=== PATIENT | female | born 1935 | race Caucasian/White ===

== ENCOUNTER → 2020-12-15 11:07 | Outpatient (BNVA) | payer MEDICARE, SELFPAY | PROVIDERS: PCP Internal Medicine; Visit Provider Hospitalist | DX: Z13.89 Encounter for screening for other disorder (principal) | CPT/HCPCS: Q3014 ==

== ENCOUNTER → 2021-06-15 11:01 | Outpatient (BNVA) | payer MEDICARE, SELFPAY | PROVIDERS: PCP Internal Medicine; Visit Provider Hospitalist | DX: J45.909 Unspecified asthma, uncomplicated (principal); J47.9 Bronchiectasis, uncomplicated; J90 Pleural effusion, not elsewhere classified; R91.8 Other nonspecific abnormal finding of lung field | CPT/HCPCS: 99212 ==

== ENCOUNTER → 2021-12-18 11:13 | Outpatient (BNVA) | payer MEDICARE, SELFPAY | PROVIDERS: PCP Internal Medicine; Visit Provider Hospitalist | DX: J47.9 Bronchiectasis, uncomplicated (principal); R91.8 Other nonspecific abnormal finding of lung field; J90 Pleural effusion, not elsewhere classified | CPT/HCPCS: Q3014 ==

== ENCOUNTER → 2023-01-24 13:44 | Outpatient (BNVA) | payer MEDICARE, SELFPAY | PROVIDERS: PCP Internal Medicine; Visit Provider Hospitalist | DX: J45.909 Unspecified asthma, uncomplicated (principal); J47.9 Bronchiectasis, uncomplicated; J90 Pleural effusion, not elsewhere classified; R91.8 Other nonspecific abnormal finding of lung field | CPT/HCPCS: 99212 ==

== ENCOUNTER 2024-01-15 13:44 | Outpatient (AMB) | payer MEDICARE, SELFPAY ==
--- NOTE | 2024-01-15 13:46 | A.OFFVIS_ITS ---
Intake Vital Signs 01/15/24 13:49 Height 5 ft 4.5 in Weight 172 lb BMI 29.1 Pulse 73 Pulse Source Pulse Oximeter Pulse Oximetry (%) 96 Oxygen Delivery Method Room Air Intake Visit Reasons: copd Pressed Or Blown Glass Worker Required: No Allergies No Known Allergies Allergy (Verified 01/15/24 13:50) HPI HPI Comments History of Present Illness Details Patient is an 88-year-old woman with known history of asthma in addition to bronchiectasis and pulmonary nodules. Overall she has been doing well from a respiratory status. She does have an Advair inhaler but she is seldom uses it. Mainly when she gets sick. She has required at all the summer. She does not have a rescue inhaler her. She should have 1 readily available. She did have a repeat CT scan of the chest at radiology imaging in and [place] back in November 2019. I personally reviewed the CT scan demonstrating numerous pulmonary nodules were unchanged when compared to CT scan from 2017. At this point will plan to repeat the CT scan in November 2020. 12/15/2020 the patient has a telephone vi sit. Overall the patient has been doing well. She continues on the combination inhaler with good adherence. She also has been taking the singular. She feels that this has been helpful. She was asking about taking the antihistamines in the singular and I reassured her that is okay for her to do that. I did request that she takes med different times to avoid too much drowsiness. She did undergo a CT scan of the chest that we discussed. It appears that her pulmonary nodules are stable. She has multiple nodules noted. Her largest nodule 5 mm. The only new finding on the CT scan is that she has small bilateral pleural effusions. On further questioning she has been taking more by mouth. She recently saw her in tube conversion technician to told her not to take some much fluids. Therefore she has backed off on her fluid intake. She denies any lower extremity edema this time and has been better since she decrease the amount of fluid intake. If the patient develops any worsening shortness of breath or any other concerning symptoms she is to call for earlier evaluation otherwise will discuss this further in 6 months time. 06/18/2021 the patient is here for a pulm onary follow-up visit. Overall the patient has been feeling well. She continues taking her respiratory medications. She is concerned about the findings of the CT scan demonstrating the bilateral small pleural effusions. Of the time the patient was taking in a lot of fluids. She subsequently after that decrease taking as much. I have reassured the patient that this is likely just related to her volume status at the time. Her exam is completely normal with no diminished breath sounds at the bases and no dullness to percussion. I will have her get an x-ray just to make sure that the effusions have subsided. If there is still some abnormality we can consider an echocardiogram and also consider additional imaging studies. Her pulmonary nodules have been stable social will require an additional CT scan until November 2021 to follow up with her yearly CAT scan to assess her pulmonary nodules at that time. 01/15/2024 the patient is here for pulmon becca follow-up visit. Overall the patient has been doing well. She has not had to use Wixela. She does prefer to use her rescue inhaler. She has not had to use the rescue inhaler either. Denies any cough or chest congestion. Denies any respiratory limitations. She did have a CT scan of the chest back in 2021 demonstrating stable pulmonary nodules. She does have some bronchiectatic changes. She is having back pain. It is uncomfortable for her. No radiation. She did see a manager financial systems. I did recommend she see a pain specialist. Otherwise no further imaging studies from a pulmonary standpoint at this time. Will plan to follow-up in late September. However, if she is doing good she can always personally appointment to the the spring. Also, she is going to hold off on the Wixela. She can use her rescue inhaler. However, she starts needing to use her rescue inhaler more than twice a week then she should be starting the Wixela as well. She has already had vaccinations for the flu RSV and COVID. She will talk to the pharmacist to see if she is up to date with her Prevnar 20. [facility] Medical History (Updated 01/15/24 @ 13:56 by Bobby Tamez MD) Pleural effusion Pulmonary nodules Bronchiectasis Asthma Social History (Updated 01/24/23 @ 13:56 by LIZA Malone) Patient Tobacco Use Status: Former Tobacco user Tobacco use type: Cigarette Years Smoked: 25 years Review of Systems Const Denies night sweats ENT Denies change in voice, Denies lip swelling, Denies mouth pain, Reports nasal congestion, Reports nasal discharge and Denies tongue swelling Card Denies chest pain Resp Denies chest congestion and Reports cough GI Denies abdominal pain Musc Denies no additional complaints Neuro Denies Neuro-related abnormal movements Psych Denies no additional complaints Sherif/Lymph Denies easy bleeding and Denies lymphadenopathy Aller/Immun Denies lip swelling and Denies tongue swelling Physical Exam Vital Signs: Last Vital Signs Pulse 73 01/15/24 13:49 Pulse Ox 96 01/15/24 13:49 Oxygen Delivery Method Room Air 01/15/24 13:49 BMI result Body Mass Index 29.1 Const General: alert Neck Neck: Yes normal visual inspection, Yes full ROM and Yes no lymphadenopathy Chest Chest palpation & inspection: normal inspection of the chest Resp Effort & Inspection: normal respiratory effort Auscultation: clear to auscultation bilaterally Percussion: no dullness to percussion Cardio Rate: regular rate Rhythm: regular rhythm Heart sounds: S1 normal heart sound present and S2 normal heart sound present GI Palpation (GI): Soft to palpation and nontender Auscultation: normal bowel sounds Skin General skin exam: rashes and/or lesions noted Assessment & Plan Assessment & Plan (1) Asthma: Code(s): J45.909 - Unspecified asthma, uncomplicated Qualifiers: Asthma complication type: uncomplicated Asthma persistence: persistent Asthma severity: moderate Qualified Code(s): J45.40 - Moderate persistent asthma, uncomplicated (2) Bronchiectasis: Code(s): J47.9 - Bronchiectasis, uncomplicated Qualifiers: Bronchiectasis type: uncomplicated Qualified Code(s): J47.9 - Bronchiectasis, uncomplicated (3) Pulmonary nodules: Code(s): R91.8 - Other nonspecific abnormal finding of lung field Plan fluticasone nasal spray hold Wixela 250 Short-acting beta agonist as needed Continue singular CPT with acapella valve Follow-up in 8-12 months Medications: New albuterol sulfate 90 mcg/actuation 2 inhalations inhalation Q6H 90 days PRN 3 ea 3RF shortness of breath or wheezing J44.9 - Chronic obstructive pulmonary disease, unspecified Coding Level of Care Code Est Pt Level 4 (07812) Diagnoses Moderate persistent asthma without complication J45.40 Asthma complication type: uncomplicated Asthma persistence: persistent Asthma severity: moderate Bronchiectasis without complication J47.9 Bronchiectasis type: uncomplicated Pulmonary nodules R91.8 Time Spent (min) 17
[2024-01-15 13:49] VITALS: PULSE 73; O2SAT 96; BMI 29.1
== END 2024-01-15 14:13 | disposition home or self-care (01) ==
PROVIDERS: PCP Internal Medicine; Visit Provider Hospitalist
DX: J45.40 Moderate persistent asthma, uncomplicated (principal); J47.9 Bronchiectasis, uncomplicated; R91.8 Other nonspecific abnormal finding of lung field
CPT/HCPCS: 99214

== ENCOUNTER → 2024-01-15 13:44 | Outpatient (BNVA) | payer MEDICARE, SELFPAY | PROVIDERS: PCP Internal Medicine; Visit Provider Hospitalist | DX: J44.9 Chronic obstructive pulmonary disease, unspecified (principal); J45.40 Moderate persistent asthma, uncomplicated; J47.9 Bronchiectasis, uncomplicated; R91.8 Other nonspecific abnormal finding of lung field | CPT/HCPCS: 99212 ==

== ENCOUNTER 2024-09-15 14:43 | Outpatient (AMB) | payer MEDICARE, SELFPAY ==
--- NOTE | 2024-09-15 14:44 | MHC.OFFVIS ---
Vital Signs 09/15/24 14:45 Height 5 ft 4.5 in Weight 153 lb 7.068 oz BMI 25.9 BP 140/50 H Blood Pressure Location Rt brachial Position Sitting Pulse 74 Pulse Source Pulse Oximeter Intake Visit Reasons: Arthritis//RECORDS RECEIVED Intake Note: Patient present today for arthritis office visit. Hand Cell Tuber Required: No Accompanied by: Daughter Allergies No Known Allergies Allergy (Verified 09/15/24 14:52) HPI Comments Details: She fell two weeks ago while trying to make a turn with her walker and landed on the cement floor on her right hip. She has had right lateral hip pain since incident. Sometimes pain is in left groin region. She completed PT for back and lower extremities same week incident happend. PT was happy with patient's progress. She is no longer requiring wheelchair. She had x-ray of right hip recently and reports that there is no arthritis in the hip. Last cortisone injection in bilateral knees was helpful in reducing pain for 2 months. She was able to participate in PT. [facility] Medical History (Updated 09/15/24 @ 22:49 by Stan Villa MD) Pleural effusion Pulmonary nodules Bronchiectasis Asthma Social History Patient Tobacco Use Status: Former Tobacco user Tobacco use type: Cigarette Years Smoked: 25 years Review of Systems Const All systems reviewed & are unremarkable except as noted in HPI and below Physical Exam Vital Signs: Last Vital Signs Pulse 74 09/15/24 14:45 BP 140/50 H 09/15/24 14:45 BMI result Body Mass Index 25.9 Const General: healthy appearing and comfortable Extrem Other: Tender right trochanteric bursa region. No groin tenderness. She has ROM in right hip but it is not full with external rotation. Bilateral knee flexion 90 degrees. No tenderness of bilateral knees. Office Procedures AMB Joint Injection/Aspiration Joint Injection/Aspiration Primary Site: other (right trochanteric bursa) Prep: site was prepped using aseptic technique Procedure: The patient tolerated the procedure well Coding 59855 - Large joint (right hip bursa and right knee) Procedure code (CPT) selection complete Office Meds Kenalog 40 mg/mL suspension for injection Performing Provider: Stan Villa MD Performing Location[place] [facility] [place] [facility] Administered by: Stan Villa MD on 09/15/24 22:50 Dose Route Admin Location Dispensed Lot Number Expiration Date [facility] Automatic Trimming Sewer 40 mg intrabursal right knee 1 mL [id number] [employer] 40 mg intrabursal right trochanteric bursa 1 mL [id number] [employer] lidocaine (PF) 10 mg/mL (1 %) injection solution Performing Provider: Stan Villa MD Performing Location: [facility] [place] [facility] Administered by: Stan Villa MD on 09/15/24 22:50 Dose Route Admin Location Dispensed Lot Number Expiration Date [facility] Automatic Trimming Sewer 20 mg Infiltration 2 mL [id number] [facility] Assessment & Plan Assessment & Plan (1) Trochanteric bursitis of right hip: Comment: Pain is uncontrolled. Code(s): M70.61 - Trochanteric bursitis, right hip Category: Medical Plan: She received right trochanteric bursa injection today. (2) Osteoarthritis of right knee: Comment: Pain is uncontrolled Code(s): M17.11 - Unilateral primary osteoarthritis, right knee Category: Medical Plan: She received right knee cortisone injection. (3) Osteoarthritis of both knees: Comment: Pain is uncontrolled. Code(s): M17.0 - Bilateral primary osteoarthritis of knee Category: Medical Plan: Will treat right knee OA with cortisone injection today. She will return in 3-4 weeks to treat left knee OA with cortisone injection. Orders: Orders AMB Joint Injection/Aspiration Today M17.11 - Unilateral primary osteoarthritis, right knee, M70.61 - Trochanteric bursitis, right hip Coding Level of Care Code Est Pt Level 3 (98846) Diagnoses Trochanteric bursitis of right hip M70.61 Osteoarthritis of right knee M17.11 Osteoarthritis of both knees M17.0 CPT Codes Coding - Large joint: 24705 - Large joint ([id number])
[2024-09-15 14:45] VITALS: BP 140/50; PULSE 74; BMI 25.9
== END 2024-09-15 15:38 | disposition home or self-care (01) ==
PROVIDERS: PCP Internal Medicine; Visit Provider Internal Medicine Rheumatology
DX: M70.61 Trochanteric bursitis, right hip (principal); M17.11 Unilateral primary osteoarthritis, right knee; M17.0 Bilateral primary osteoarthritis of knee
CPT/HCPCS: 20610; 99213

== ENCOUNTER → 2024-09-15 14:43 | Outpatient (BNVA) | payer MEDICARE, SELFPAY | PROVIDERS: PCP Internal Medicine; Visit Provider Internal Medicine Rheumatology | DX: M70.61 Trochanteric bursitis, right hip (principal); M17.11 Unilateral primary osteoarthritis, right knee; M17.0 Bilateral primary osteoarthritis of knee; Z91.81 History of falling | CPT/HCPCS: 20610; 99212; J2003; J3300 ==

== ENCOUNTER 2024-09-28 13:51 | Outpatient (AMB) | payer MEDICARE, SELFPAY ==
[2024-09-28 13:54] VITALS: BP 128/62; PULSE 71; O2SAT 98; BMI 25.1
--- NOTE | 2024-09-28 13:54 | A.OFFVIS_ITS ---
Vital Signs 09/28/24 13:54 Height 5 ft 4.5 in Weight 148 lb 12.992 oz BMI 25.1 BP 128/62 Blood Pressure Location Lt brachial Position Sitting Pulse 71 Pulse Oximetry (%) 98 Oxygen Delivery Method Room Air Intake Visit Reasons: COPD Energy Risk Management Analyst Required: No Autism Motor Specialist: Autism Motor Specialist offered & declined Accompanied by: Daughter Allergies No Known Allergies Allergy (Verified 09/28/24 14:00) Medication List - Last Reconciled 09/28/24 by Maria Luz Fletcher LPN acetaminophen ER (Tylenol 8 Hour) 650 mg PO Q12H PRN albuterol sulfate 90 mcg/actuation 2 inhalations inhalation Q6H PRN albuterol sulfate 90 mcg/actuation 2 inhalations inhalation Q6H PRN 90 days allopurinol 300 mg PO DAILY ascorbic acid (vitamin C) 250 mg PO DAILY carvedilol 25 mg PO BID coenzyme Q10 300 mg PO DAILY [Dmannase .Route! tablet in the AM ] fluticasone propion-salmeterol 250-50 mcg/dose (Wixela Inhub) 1 inh inhalation BID PRN fluticasone propionate 50 mcg/actuation 2 sprays intranasal DAILY PRN lactobacillus combination no.9 (Adult 50 Plus Probiotic) 4,000 mmu cells PO DAILY magnesium chloride ER 64 mg PO DAILY mecobalamin (vitamin B12) 1,000 mcg PO DAILY montelukast 10 mg PO DAILY omeprazole 20 mg PO DAILY simvastatin 20 mg PO BEDTIME spironolactone 25 mg PO DAILY torsemide 20 mg PO DAILY tramadol mg PO PRN trimethoprim 100 mg PO BEDTIME vibegron (Gemtesa) 75 mg PO DAILY vitamin B complex (Super B-50 Complex capsule) 1 cap PO DAILY HPI Comments Details: Patient is an 89-year-old woman with known history of asthma in addition to bronchiectasis and pulmonary nodules. Overall she has been doing well from a respiratory status. She does have an Advair inhaler but she is seldom uses it. Mainly when she gets sick. She has required at all the summer. She does not have a rescue inhaler her. She should have 1 readily available. She did have a repeat CT scan of the chest at radiology imaging [place] in November 2019. I personally reviewed the CT scan demonstrating numerous pulmonary nodules were unchanged when compared to CT scan from 2018. At this point will plan to repeat the CT scan in November 2020. 12/15/2020 the patient has a telephone visit. Overall the patient has been doing well. She continues on the combination inhaler with good adherence. She also has been taking the singular. She feels that this has been helpful. She was asking about taking the antihistamines in the singular and I reassured her that is okay for her to do that. I did request that she takes med different times to avoid too much drowsiness. She did undergo a CT scan of the chest that we discussed. It appears that her pulmonary nodules are stable. She has multiple nodules noted. Her largest nodule 5 mm. The only new finding on the CT scan is that she has small bilateral pleural effusions. On further questioning she has been taking more by mouth. She recently saw her associate director career services to told her not to take some much fluids. Therefore she has backed off on her fluid intake. She denies any lower extremity edema this time and has been better since she decrease the amount of fluid intake. If the patient develops any worsening shortness of breath or any other concerning symptoms she is to call for earlier evaluation otherwise will discuss this further in 6 months time. 06/18/2021 the patient is here for a pulmonary follow-up visit. Overall the patient has been feeling well. She continues taking her respiratory medications. She is concerned about the findings of the CT scan demonstrating the bilateral small pleural effusions. Of the time the patient was taking in a lot of fluids. She subsequently after that decrease taking as much. I have reassured the patient that this is likely just related to her volume status at the time. Her exam is completely normal with no diminished breath sounds at the bases and no dullness to percussion. I will have her get an x-ray just to make sure that the effusions have subsided. If there is still some abnormality we can consider an echocardiogram and also consider additional imaging studies. Her pulmonary nodules have been stable social will require an additional CT scan until November 2021 to follow up with her yearly CAT scan to assess her pulmonary nodules at that time. 01/15/2024 the patient is here for pulmonary follow-up visit. Overall the patient has been doing well. She has not had to use Wixela. She does prefer to use her rescue inhaler. She has not had to use the rescue inhaler either. Denies any cough or chest congestion. Denies any respiratory limitations. She did have a CT scan of the chest back in 2021 demonstrating stable pulmonary nodules. She does have some bronchiectatic changes. She is having back pain. It is uncomfortable for her. No radiation. She did see a clinical data management director. I did recommend she see a pain specialist. Otherwise no further imaging studies from a pulmonary standpoint at this time. Will plan to follow-up in late September. However, if she is doing good she can always personally appointment to the the spring. Also, she is going to hold off on the Wixela. She can use her rescue inhaler. However, she starts needing to use her rescue inhaler more than twice a week then she should be starting the Wixela as well. She has already had vaccinations for the flu RSV and COVID. She will talk to the pharmacist to see if she is up to date with her Prevnar 20. 09/28/2024 the patient is here for pulmonary follow-up visit. Since the well. She has the inhaler. She does continue beneficial. Her breathing has not issue. However significant weight loss. She has lost more than 20 lb in the last 2 months. In addition to that she has lost more than 70 lb in the last year. Her daughter is with her to confirm that. She states that she has had a some diarrhea issues. She does follow-up with GI. In addition to that she was brought actively trying to lose the weight. She feels healthy. Denies any night sweats or fevers. Denies any respiratory complaints. She does have underlying pulmonary nodules that were followed before. Her nodules had been stable for more than 2 years and therefore no additional imaging study warranted. In view of her ongoing weight loss will have her get an x-ray. If her x-ray is abnormal she may need additional imaging studies. For now she is doing good she will follow-up in 8-12 months. If she has any issues prior to that she will call for an earlier assessment. [facility] Medical History (Updated 09/15/24 @ 22:49 by Stan Villa MD) Pleural effusion Pulmonary nodules Bronchiectasis Asthma Social History Patient Tobacco Use Status: Former Tobacco user Tobacco use type: Cigarette Years Smoked: 25 years Review of Systems Const Denies night sweats and Reports weight loss ENT Denies change in voice, Denies lip swelling, Denies mouth pain, Reports nasal congestion, Reports nasal discharge and Denies tongue swelling Card Denies chest pain Resp Denies chest congestion and Reports cough GI Denies abdominal pain and Reports diarrhea Musc Denies no additional complaints Neuro Denies Neuro-related abnormal movements Psych Denies no additional complaints Sherif/Lymph Denies easy bleeding and Denies lymphadenopathy Aller/Immun Denies lip swelling and Denies tongue swelling Physical Exam Vital Signs: Last Vital Signs Pulse 71 09/28/24 13:54 BP 128/62 09/28/24 13:54 Pulse Ox 98 09/28/24 13:54 Oxygen Delivery Method Room Air 09/28/24 13:54 BMI result Body Mass Index 25.1 Const General: alert Neck Neck: Yes normal visual inspection, Yes full ROM and Yes no lymphadenopathy Chest Chest palpation & inspection: normal inspection of the chest Resp Effort & Inspection: normal respiratory effort Auscultation: clear to auscultation bilaterally Percussion: no dullness to percussion Cardio Rate: regular rate Rhythm: regular rhythm Heart sounds: S1 normal heart sound present and S2 normal heart sound present GI Palpation (GI): Soft to palpation and nontender Auscultation: normal bowel sounds Skin General skin exam: rashes and/or lesions noted Assessment & Plan Assessment & Plan (1) Asthma: Code(s): J45.909 - Unspecified asthma, uncomplicated Category: Medical Qualifiers: Asthma complication type: uncomplicated Asthma persistence: persistent Asthma severity: moderate Qualified Code(s): J45.40 - Moderate persistent asthma, uncomplicated (2) Bronchiectasis: Code(s): J47.9 - Bronchiectasis, uncomplicated Category: Medical Qualifiers: Bronchiectasis type: uncomplicated Qualified Code(s): J47.9 - Bronchiectasis, uncomplicated (3) Pulmonary nodules: Code(s): R91.8 - Other nonspecific abnormal finding of lung field Category: Medical Plan fluticasone nasal spray add ipratropium nasal hold Wixela 250 Short-acting beta agonist as needed Continue singular CPT with acapella valve CXR Follow-up in 8-12 months Orders: Orders XR chest 2V Today R91.8 - Other nonspecific abnormal finding of lung field Medications: New ipratropium bromide administer into each nostril 2 sprays intranasal TID PRN 15 mL 6RF allergy symptoms Coding Level of Care Code Est Pt Level 4 (44599) Diagnoses Moderate persistent asthma without complication J45.40 Asthma complication type: uncomplicated Asthma persistence: persistent Asthma severity: moderate Bronchiectasis without complication J47.9 Bronchiectasis type: uncomplicated Pulmonary nodules R91.8 Time Spent (min) 16
== END 2024-09-28 14:23 | disposition home or self-care (01) ==
PROVIDERS: PCP Internal Medicine; Visit Provider Hospitalist
DX: J45.40 Moderate persistent asthma, uncomplicated (principal); J47.9 Bronchiectasis, uncomplicated; R91.8 Other nonspecific abnormal finding of lung field
CPT/HCPCS: 99214

== ENCOUNTER 2024-09-28 13:51 | Outpatient (REF) | payer MEDICARE, SELFPAY ==
--- NOTE | ~2024-09-28 | XR_ITS ---
EXAMINATION: XR CHEST CLINICAL INFORMATION: R91.8 - Other nonspecific abnormal finding of lung field COMPARISON: None available. TECHNIQUE: 2 views of the chest were obtained. FINDINGS: No significant abnormality is noted involving the heart, lungs, mediastinum, bony thorax or soft tissues. XR/XR chest 2V IMPRESSION: Unremarkable examination. Electronically signed by: Agus Magallanes MD 09/29/2024 05:41 PM EST
== END 2024-09-28 13:52 | disposition home or self-care (01) ==
LOC: HO.XRAY 13:51
PROVIDERS: PCP Internal Medicine; Visit Provider Hospitalist
DX: R91.8 Other nonspecific abnormal finding of lung field (principal); J45.40 Moderate persistent asthma, uncomplicated; J47.9 Bronchiectasis, uncomplicated
CPT/HCPCS: 71046; 99212

== ENCOUNTER 2024-10-05 14:20 | Outpatient (AMB) | payer MEDICARE, SELFPAY ==
[2024-10-05 14:33] VITALS: BP 108/58; PULSE 62; O2SAT 98; BMI 25.7
--- NOTE | 2024-10-05 14:33 | A.OFFVIS_ITS ---
Vital Signs 10/05/24 14:33 Height 5 ft 4.5 in Weight 152 lb 1.903 oz BMI 25.7 BP 108/58 L Blood Pressure Location Lt brachial Position Sitting Pulse 62 Pulse Source Pulse Oximeter Pulse Oximetry (%) 98 Oxygen Delivery Method Room Air Intake Visit Reasons: left knee cortisone injection/cm Intake Note: Patient is here for left knee cortisone injection, she would like to discuss hip shot with Dr. Villa. Accompanied by: Daughter Allergies No Known Allergies Allergy (Verified 09/28/24 14:00) HPI HPI left knee cortisone injection/cm: Details: She had 4 days of relief from right trochanteric bursa injection. Pain has r eturned. It is intermittent. She continues to have relief from right knee cortisone injection. She will be starting physical therapy for back pain. Most recently she has been experiencing a throbbing pain anterior lower rodriguez bilateral mostly at night. Denies having any ankle pain. Applying heat helps. [facility] Medical History (Updated 10/05/24 @ 15:50 by Stan Villa MD) Pleural effusion Pulmonary nodules Bronchiectasis Asthma Social History Patient Tobacco Use Status: Former Tobacco user Tobacco use type: Cigarette Years Smoked: 25 years Physical Exam Vital Signs: Last Vital Signs Pulse 62 10/05/24 14:33 BP 108/58 L 10/05/24 14:33 Pulse Ox 98 10/05/24 14:33 Oxygen Delivery Method Room Air 10/05/24 14:33 BMI result Body Mass Index 25.7 Const Other: General: Comfortable Skin: No lesions seen MSK: Tender to palpate along left knee joint line. Knee flexion is limited. Office Procedures AMB Joint Injection/Aspiration Joint Injection/Aspiration Primary Site: left knee Prep: site was prepped using aseptic technique Injected: 40 mg of, Kenalog, with 1 mL of and 1% plain lidocaine Procedure: The patient tolerated the procedure well Coding 86594 - Large joint Procedure code (CPT) selection complete Office Meds Kenalog 40 mg/mL suspension for injection Performing Provider: Stan Villa MD [place] [facility] [place] [facility] Administered by: Stan Villa MD on 10/05/24 15:47 Dose Route Admin Location Dispensed Lot Number Expiration Date NDC Broth Setter 40 mg intra-articular Left knee 1 mL AP [id number] [employer] lidocaine (PF) 10 mg/mL (1 %) injection solution Performing Provider: Stan Villa MD [place] [facility] [place] [facility] Administered by: Stan Villa MD on 10/05/24 15:47 Dose Route Admin Location Dispensed Lot Number Expiration Date [facility] Broth Setter 10 mg Infiltration Left knee 2 mL [id number] [facility] Assessment & Plan Assessment & Plan (1) Osteoarthritis of both knees: Comment: Pain in left knee is uncontrolled. She continues to have relief from last cortisone injection in right knee. Code(s): M17.0 - Bilateral primary osteoarthritis of knee Category: Medical Qualifiers: Osteoarthritis type: primary Qualified Code(s): M17.0 - Bilateral primary osteoarthritis of knee Plan: She received left knee cortisone injection this visit Return to clinic in 3 months We discussed the importance of having a regular exercise routine. She will be starting physical therapy (2) Trochanteric bursitis of right hip: Comment: Pain is uncontrolled. Intermittent. She only had 4 days of relief with last cortisone injection. Code(s): M70.61 - Trochanteric bursitis, right hip Category: Medical Plan: Referred to PT. Return to clinic in 3 months (3) Venous insufficiency (chronic) (peripheral): Comment: Recently developed lower extremity discomfort above ankle with throbbing sensation most felt at night. I am concerned that with her history of venous insufficiency that any be contributing. We discussed empiric management. Code(s): I87.2 - Venous insufficiency (chronic) (peripheral) Category: Medical Plan: She will start wearing compression stockings Follow up with PCP for consideration of repeating venous ultrasounds Orders: Orders PT Evaluation and Treatment Today M70.61 - Trochanteric bursitis, right hip AMB Joint Injection/Aspiration Today M17.0 - Bilateral primary osteoarthritis of knee Coding Level of Care Code Est Pt Level 4 (74321) Complex EM visit Add On G2211 Diagnoses Primary osteoarthritis of both knees M17.0 Osteoarthritis type: primary Trochanteric bursitis of right hip M70.61 Venous insufficiency (chronic) (peripheral) I87.2 CPT Codes Coding - Large joint: 39646 - Large joint ([id number])
--- OUTSIDE RECORDS SUMMARY | 2024-10-12 14:54 | XMS_ITS | Continuity of Care Document ---
Author Organization [place] [facility] [place] Address [address] [place] [address] Care Team Providers Care Departure Clerk Name Role Phone JOSE MIGUEL DELA CRUZ Primary Care Provider JOSE MIGUEL DELA CRUZ Referring Provider [phone] Assessment Encounter Date Assessment Date Assessment LastModified by Organization Details LastModified Time 09/22/2024 09/22/2024 Carine Moe i s an 89 year old female who presents today With her daughter for evaluation of acute on chronic low back pain. She has had low back pain for a couple of years however noticed that her low back pain about 7 months ago slowly was worsening. Then at the end of August she had a fall on the stairs in her garage landing onto the buttock. This worsened her buttock pain and also right hip pain. She was seen approximately a week later at the emergency department and had negative x-rays. She continues to have right sided buttock pain. This is not radicular. Her scan coordinator gave her an injection to the right greater trochanter which has alleviated those symptoms. She now has pain with prolonged sitting or going from the seated to standing position. She denies any history of compression fractures. She denies any spinal surgery. Denies leg fatigue or heaviness. Denies saddle paresthesias, bowel or bladder incontinence, recent fevers or unexplained weight loss. She has been treated with physical therapy for gait training and overall deconditioning. Exam: Constitutional: appears well developed, in no acute distress. Respiratory: no respiratory distress Musculoskeletal: Normal gait Back: Mild right gluteal tenderness Neurologic: Sensation grossly intact to light touch in bilateral upper and lower extremities. Able to toe raise and heel walk bilaterally Normal tone in all 4 extremities. Negative Clonus bilaterally. Skin: skin intact Lower Extremity: bilateral unless noted Iliopsoas Femoral L1/2: 5/5 Quad Femoral L3: 5/5 Tibialis Ant/Peroneal L4: 5/5 EHL L5: 5/5 Gastroc Tibial S1: 5/5 Imaging: X-rays of the sacrum and coccyx were performed on 09/22/2024 which are negative for acute fracture. Question of callus formation at the inferior aspect of the sacrum. Plan: Carine is an 89-year-old female with sacral and coccyx pain after a fall 1 month ago. No obvious fractures appreciated on x-rays today, I did offer her an MRI to further rule out insufficiency fracture versus acute pathology versus a CT scan to rule out acute fracture however she and her daughter have declined At this time we will return to physical therapy with emphasis on her right hip and sacral/coccyx pain. Follow-up in 4 weeks for reassessment. Sooner if condition worsens. Avoid aggravating factors. Patient was seen and evaluated by Kleber Hoyos PA-C in indirect conjunction with Documenting Provider: Chandler Duncan MD He agrees with history, physical examination, tests/diagnostic imaging, and treatment plan [email or web address] Not available 09/22/2024 14:37:42 Plan of Treatment Reminders Order Date Submit Date Provider Last Modified By Organization Details Last Modified Time Details Appointments SPINE FOLLOW UP 2023 02:30P M Kleber Hoyos PA-C Not available Not available Not available Lab None recorded. Referral orthopedi c physical therapist referral - Additiona l Comments: 2023 024 [email or web address] Not available 09/22/2024 14:25:50 Procedures None recorded. Surgeries None recorded. Imaging XR, sacrum + coccyx, 2 or more view 2023 024 [email or web address] [facility], [address], [place] [address], [place], [address], 09/22/2024 14:20:37 Medication Orders None recorded. Patient TargetsNo targets recorded. Patient Instructions Encounter Date Encounter Id Patient Instructions Last Modified By Organization Details Last Modified Time 09/22/2024 [id number] X-rays of the sacrum and coccyx were performed on 09/22/2024 which are negative for acute fracture. Question of callus formation at the inferior aspect of the sacrum. [email or web address] Not available 09/22/2024 14:37:33 Reason for Referral Additional Comments: Referring Physician: Kleber Hoyos, Orthopedic Surgery, Encounter Date: 09/22/2024 Results Created Date Observation Date Name Description Value Unit Range Abnormal Flag Note LastModifiedBy Organization Detail LastModifiedTime 09/22/20 24 imagi ng/di agnos tic resul t No observ ation record ed. [email or web address] Not Available 09/22 15:47:26 Result Notes None recorded. Problems Name Problem SNOMED Code Status Onset Date Resolution Date Notes Provider Name and Address Organization Details Recorded Time Trochanteri c bursitis of right hip 9597409126657 00 Active 2023 KLEBER HOYOS PA-C [address], [place], [address], [place] [facility], P 4 14:23:51 Low back pain 172796343 Active 2023 KLEBER HOYOS PA-C [address], [place], [address], [place] [facility], P 4 14:24:05 Problem Notes None recorded. Medical Equipment None Reported. Medications Name Sig Start Date Stop Date Status Note LastModified by Organization Details LastModified Time carvedilol 25 mg tablet active Not Available Not Available Not Available torsemide 20 mg tablet active Not Available Not Available Not Available meloxicam 15 mg tablet 09/22 completed Not Available Not Available Not Available prednisone 20 mg tablet TAKE 2 TABLETS BY MOUTH TODAY THEN 2 TABLETS TOMORROW AND THEN 1 TABLET DAILY FOR 4 MORE DAYS 09/22 completed Not Available Not Available Not Available diphenoxyla te-atropine 2.5 mg-0.025 mg tablet TAKE 1 TABLET BY MOUTH TWICE DAILY NEEDED FOR DIARRHEA 09/22 completed Not Available Not Available Not Available tramadol 50 mg tablet TAKE 1 TABLET BY MOUTH ONCE A DAY NEEDED active Not Available Not Available No t Available spironolact one 25 mg tablet active Not Available Not Available Not Available lorazepam 0.5 mg tablet 09/22 completed Not Available Not Available Not Available trazodone 100 mg tablet active Not Available Not Available Not Available cephalexin 500 mg capsule TAKE 1 CAPSULE BY MOUTH TWICE DAILY 09/22 completed Not Available Not Available Not Available simvastatin 20 mg tablet active Not Available Not Available Not Available omeprazole 20 mg capsule,del ayed release active Not Available Not Available Not Available montelukast 10 mg tablet active Not Available Not Available Not Available allopurinol 300 mg tablet active Not Available Not Available Not Available albuterol sulfate HFA 90 mcg/actuati on aerosol inhaler prn active Not Available Not Available Not Available fluticasone propionate 50 mcg/actuati on nasal spray,suspe nsion active Not Available Not Available Not Available nitrofurant oin monohydrate /macrocryst als 100 mg capsule TAKE 1 CAPSULE BY MOUTH TWICE DAILY 09/22 completed Not Available Not Available Not Available Lidocaine Pain Relief 4 % topical patch APPLY TOPICALLY TO THE AFFECTED AREA DAILY FOR UP TO 12 HOURS. 12 HOURS ON AND 12 HOURS OFF 09/22 completed Not Available Not Available Not Available Wixela Inhub 250 mcg-50 mcg/dose powder for inhalation Inhale 1 puff twice a day by inhalatio n route. active Not Available Not Available No t Available Gemtesa 75 mg tablet 09/22 completed Not Available Not Available Not Available Vitals Date Recorded Body height Body mass index (BMI) Body weight Provider Name and Address Organization Details Last Updated DateTime 09/22/2024 162.56 cm 26.6 kg/m2 03556.[address] [place] [facility] 09/22/2024 13:58:47 Social History Question Answer Notes LastModified by Organizat ion Details LastModified Time Tobacco Smoking Status Never Smoker Dyan Berger null, [place] [facility] 09/22/2024 13:58:54 What Is Your Level Of Alcohol Consumption? None [email or web address] Information not available 09/22/2024 Do You Use Any Illicit Or Recreational Drugs? No [email or web address] Information not available 09/22/2024 Do You Or Have You Ever Used Any Other Forms Of Tobacco Or Nicotine? No [email or web address] Information not available 09/22/2024 Sex: Unknown Functional Status None recorded. Mental Status None recorded. Family History Relationship Description Onset Age of this Age Resolved Age Notes LastModified by Organization Details LastModified Time Mother History of cancer of unknown primary site [email or web address] Not available 1 11/22/2023 13:59:28 Father Heart disease [email or web address] Not available 09/04 13:59:39 Father Hypercholest erolemia [email or web address] Not available 09/04 13:59:47 Father Hypertensive disorder [email or web address] Not available 09/04 13:59:56 Medical History Condition Response Gout Y Hypertension Y Gynecological HistoryNo gynecological history recorded. Obstetrics History GPAL:G 0 P 0 0 0 0 Past Encounters Encounter ID Performer Location Encounter Start Date Encounter Closed Date Diagnosis/Indication Diagnosis SNOMED-CT Code Diagnosis ICD10 Code [id number] Chandler Duncan MD [address] [address] 09/22/2024 13:34:43 09/22/2024 14:20:37 Sacral back pain 15151667 M53.3 Trochanter ic bursitis of right hip 7659861413 14702 M70.61 Low back pain 278996950 M54.50 Health Concerns Section Related Observation LastModified by Organization Detai ls LastModified Time None Recorded Concern Status LastModified by Organization Details LastModified Time None Recorded Payers Encounter Date Sequence Insurance Name Policy Number Policy Yoo Covered Member ID Yoo Member ID Guarantor Name 09/22/2024 2 [place] [id number] Carine Moe [id number] 1 Carine Moe 09/22/2024 1 [facility] - DUAL ELIGIBLE (MEDICARE REPLACEMENT/A DVANTAGE - PPO) [id number] Carine Moe [id number] Carine Moe OBGyn Episode No OBEpisode recorded.
--- OUTSIDE RECORDS SUMMARY | 2024-10-12 14:54 | XMS_ITS ---
Author Name [facility] Organization Unknown History of Medication Use Medication Directions Dispensed Refills Start Date End Date [facility] lorazepam 0.5 mg tablet 09/24/2024 11/02/9999 completed cephalexin 500 mg capsule TAKE 1 CAPSULE BY MOUTH TWICE DAILY 09/24/2024 11/02/9999 completed montelukast 10 mg tablet 09/24/2024 11/02/9999 active diphenoxylate-atropi ne 2.5 mg-0.025 mg tablet TAKE 1 TABLET BY MOUTH TWICE DAILY NEEDED FOR DIARRHEA 09/24/2024 11/02/9999 completed meloxicam 15 mg tablet 09/24/2024 11/02/9999 completed Wixela Inhub 250 mcg-50 mcg/dose powder for inhalation Inhale 1 puff twice a day by inhalation route. 09/24/2024 11/02/9999 active allopurinol 300 mg tablet 09/24/2024 11/02/9999 active trazodone 100 mg tablet 09/24/2024 11/02/9999 active torsemide 20 mg tablet 09/24/2024 11/02/9999 active Gemtesa 75 mg tablet 09/24/2024 11/02/99 99 completed albuterol sulfate HFA 90 mcg/actuation aerosol inhaler prn 09/24/2024 11/02/9999 active Lidocaine Pain Relief 4 % topical patch APPLY TOPICALLY TO THE AFFECTED AREA DAILY FOR UP TO 12 HOURS. 12 HOURS ON AND 12 HOURS OFF 09/24/2024 11/02/9999 completed carvedilol 25 mg tablet 09/24/2024 11/02/9999 active fluticasone propionate 50 mcg/actuation nasal spray,suspension 09/24/2024 11/02/9999 active tramadol 50 mg tablet TAKE 1 TABLET BY MOUTH ONCE A DAY NEEDED 09/24/2024 11/02/9999 active spironolactone 25 mg tablet 09/24/2024 11/02/9999 active prednisone 20 mg tablet TAKE 2 TABLETS BY MOUTH TODAY THEN 2 TABLETS TOMORROW AND THEN 1 TABLET DAILY FOR 4 MORE DAYS 09/24/2024 11/02/9999 completed simvastatin 20 mg tablet 09/24/2024 11/02/9999 active omeprazole 20 mg capsule,delayed release 09/24/2024 11/02/9999 active nitrofurantoin monohydrate/macrocry stals 100 mg capsule TAKE 1 CAPSULE BY MOUTH TWICE DAILY 09/24/2024 11/02/9999 completed Problems Problem Status Onset Date Problem Type Date of Resoluti on Source Low back pain active 2024-09-22 ProblemAct ENS_ AONECT Trochanteric bursitis of right hip active 2024-09-22 ProblemAct ENS_AONECT
--- OUTSIDE RECORDS SUMMARY | 2024-10-12 14:54 | XMS_ITS | Data Portability ---
Author Organization [place] [facility] [place] Address [address] [place] [address] Care Team Providers Care Pet Food Deboner Name Role Phone JOSE MIGUEL DELA CRUZ Primary Care Provider JOSE MIGUEL DELA CRUZ Referring Provider Assessment Encounter Date Assessment Date Assessment LastModified [...] buttock pain. This is not radicular. Her orthopedically impaired teacher gave her an injection to the right [...] physical examination, tests/diagnostic imaging, and treatment plan [email or web address] Not available 09/22/2024 14:37:42 Plan of Treatment [...] more view 2023 024 [email or web address] [facility], [address], [place] [address], [place], [address], 09/22/2024 14:20:37 Medication Orders None recorded. Patient TargetsNo targets recorded. Patient Instructions Encounter Date Encounter Id Patient Instructions Last Modified By Organization Details Last Modified Time 09/22/2024 [id number] X-rays of the sacrum and coccyx were performed on 09/22/2024 which are negative for acute fracture. Question of callus formation at the inferior aspect of the sacrum. [email or web address] Not available 09/22/2024 14:37:33 Reason for Referral [...] Time Trochanteri c bursitis of right hip 8584290819118 00 Active 2023 KLEBER HOYOS PA-C [address], [place], [address], [place] [facility] 4 14:23:51 Low back pain 507893021 Active 2023 KLEBER HOYOS PA-C [address], [place], [address], [place] [facility] 4 14:24:05 Problem Notes None recorded. Procedures Surgical History None recorded. Imaging Results Imaging Date Name Status LastModified by Organiz ation Details LastModified Time 09/22/2024 imaging/diag nostic result completed [email or web address] Information not available 09/22/2024 15:47:26 Procedure Notes None recorded. Medical Equipment None Reported. [...] Updated DateTime 09/22/2024 162.56 cm 26.6 kg/m2 33452.[address] [place] [facility] 09/22/2024 13:58:47 Social History Question Answer Notes LastModified by Organizat ion Details LastModified Time Tobacco Smoking Status Never Smoker Dyan Berger null, [place] [facility] 09/22/2024 13:58:54 What Is Your Level Of Alcohol Consumption? None [email or web address] Information not available 09/22/2024 Do You Use Any Illicit Or Recreational Drugs? No [email or web address] Information not available 09/22/2024 Do You Or Have You Ever Used Any Other Forms Of Tobacco Or Nicotine? No [email or web address] Information not available 09/22/2024 Sex: Unknown Functional Status None recorded. Mental Status None recorded. Family History Relationship Description Onset Age of this Age Resolved Age Notes LastModified by Organization Details LastModified Time Mother History of cancer of unknown primary site [email or web address] Not available 1 11/22/2023 13:59:28 Father Heart disease [email or web address] Not available 09/04 13:59:39 Father Hypercholest erolemia [email or web address] Not available 09/04 13:59:47 Father Hypertensive disorder [email or web address] Not available 09/04 13:59:56 Medical History Condition Response Gout Y Hypertension Y Gynecological HistoryNo gynecological history recorded. Obstetrics History GPAL:G 0 P 0 0 0 0 Past Encounters Encounter ID Performer Location Encounter Start Date Encounter Closed Date Diagnosis/Indication Diagnosis SNOMED-CT Code Diagnosis ICD10 Code [id number] Chandler Duncan MD [address] [place] [phone] 09/22/2024 13:34:43 09/22/2024 14:20:37 Sacral back pain 15958410 M53.3 Trochanter ic bursitis of right hip 4561179680 41392 M70.61 Low back pain 530763424 M54.50 Health Concerns Section Related Observation LastModified by Organization Detai ls LastModified Time None Recorded Concern Status LastModified by Organization Details LastModified Time None Recorded Advance Directives Directive None Recorded Payers Encounter Date Sequence Insurance Name Policy Number Policy Yoo Covered Member ID Yoo Member ID Guarantor Name 09/22/2024 2 [place] [id number] Carine Moe [id number] 1 Carine Moe 09/22/2024 1 [facility] - DUAL ELIGIBLE (MEDICARE REPLACEMENT/A DVANTAGE - PPO) [id number] Carine Moe [id number] Carine Moe OBGyn Episode No OBEpisode recorded.
== END 2024-10-05 15:13 | disposition home or self-care (01) ==
PROVIDERS: PCP Internal Medicine; Visit Provider Internal Medicine Rheumatology
DX: M17.0 Bilateral primary osteoarthritis of knee (principal); M70.61 Trochanteric bursitis, right hip; I87.2 Venous insufficiency (chronic) (peripheral)
CPT/HCPCS: 20610; 99214

== ENCOUNTER → 2024-10-05 14:20 | Outpatient (BNVA) | payer MEDICARE, SELFPAY | PROVIDERS: PCP Internal Medicine; Visit Provider Internal Medicine Rheumatology | DX: M17.0 Bilateral primary osteoarthritis of knee (principal); M70.61 Trochanteric bursitis, right hip; I87.2 Venous insufficiency (chronic) (peripheral) | CPT/HCPCS: 20610; 99212; J2003; J3300 ==

== ENCOUNTER 2025-01-06 13:59 | Outpatient (AMB) | payer MEDICARE, SELFPAY ==
--- NOTE | 2025-01-06 14:09 | A.OFFVIS_ITS ---
Vital Signs 01/06/25 14:12 Height 5 ft 4.5 in Weight 152 lb BMI 25.7 BP 158/64 H Blood Pressure Location Lt brachial Position Sitting Pulse 76 Pulse Source Pulse Oximeter Pulse Oximetry (%) 98 Oxygen Delivery Method Room Air Intake Visit Reasons: Follow Up 3mo Intake Note: Patient is here for left knee and back cortisone injection Allergies No Known Allergies Allergy (Verified 01/06/25 14:09) HPI HPI Follow Up 3mo: Details: She has been experiencing pain in her lower back for the last 2 weeks. There is no radiation of pain denies radiculopathy. She has a fall 6 weeks ago. She has home physical therapy that has been set up after the fall. She has had 1 session of physical therapy. She landed on her knee. She has a wound that is being followed by wound care and has to have regular dressings. Last cortisone injection right knee lasted 2 months. She has been using Tylenol 2 tablets once a day. She has been using lidocaine patches to her back without benefit. She has been icing her back without benefit. [facility]LY [facility] Medical History Pleural effusion Pulmonary nodules Bronchiectasis Asthma Social History Patient Tobacco Use Status: Former Tobacco user Tobacco use type: Cigarette Years Smoked: 25 years Review of Systems Const All systems reviewed & are unremarkable except as noted in HPI and below Physical Exam Vital Signs: Last Vital Signs Pulse 76 01/06/25 14:12 BP 158/64 H 01/06/25 14:12 Pulse Ox 98 01/06/25 14:12 Oxygen Delivery Method Room Air 01/06/25 14:12 BMI result Body Mass Index 25.7 Const Other: General: Comfortable Skin: Bruising along her knees and lower extremities. MSK: Tender to palpate along bilateral joint lines of knees. She has mild effusions of bilateral knees. Knee flexion is 120 degrees bilateral. She has tenderness of lower lumbar spinous process. No paraspinal muscle tenderness. Office Procedures AMB Joint Injection/Aspiration Coding 65897 - Bilateral Large Joint Procedure code (CPT) selection complete AMB Joint Injection/Aspiration Joint Injection/Aspiration Details: Bilateral knee joints Prep: site was prepped using aseptic technique Injected into each joint: 40 mg of, Kenalog, with 1 mL of and 1% plain lidocaine Procedure: The patient tolerated the procedure well. Postprocedure protocol was discussed with patient. Coding 59067 - Bilateral Large Joint Procedure code (CPT) selection complete Office Meds lidocaine (PF) 10 mg/mL (1 %) injection solution Performing Provider: Stan Villa MD Performing Location: [facility] Administered by: Stan Villa MD on 01/06/25 16:03 Dose Route Admin Location Dispensed Lot Number Expiration Date [facility] [place] [employer] 10 mg Infiltration 2 mL [id number] [facility] Kenalog 40 mg/mL suspension for injection Performing Provider: Stan Villa MD Performing Location: [facility] Administered by: Stan Villa MD on 01/06/25 16:03 Dose Route Admin Location Dispensed Lot Number Expiration Date [facility] [place] [employer] 40 mg intra-articular 1 mL AP [id number] [employer] lidocaine (PF) 10 mg/mL (1 %) injection solution Performing Provider: Stan Villa MD Performing Location: [facility] Administered by: Stan Villa MD on 01/06/25 16:03 Dose Route Admin Location Dispensed Lot Number Expiration Date [facility] [place] [employer] 10 mg Infiltration 2 mL [id number] [facility] Kenalog 40 mg/mL suspension for injection Performing Provider: Stan Villa MD Performing Location: [facility] Administered by: Stan Villa MD on 01/06/25 16:03 Dose Route Admin Location Dispensed Lot Number Expiration Date [facility] [place] [employer] 40 mg intra-articular 1 mL AP [id number] [employer] Assessment & Plan Assessment & Plan (1) Osteoarthritis of both knees: Comment: Pain in bilateral knees are uncontrolled. Code(s): M17.0 - Bilateral primary osteoarthritis of knee Category: Medical Qualifiers: Osteoarthritis type: primary Qualified Code(s): M17.0 - Bilateral primary osteoarthritis of knee Plan: She received bilateral knee cortisone injection this week Return to clinic in 3 months She will be starting physical therapy due to recent fall for lower extremity strengthening (2) Low back pain: Comment: 2 week history. She had a fall 6 weeks ago. I am evaluating further for spinal pathology contributing to lower back pain including compression fracture. Code(s): M54.50 - Low back pain, unspecified Category: Medical Qualifiers: Chronicity: acute Back pain laterality: midline Sciatica presence: without sciatica Qualified Code(s): M54.50 - Low back pain, unspecified Plan: X-ray L-spine ordered. Patient prefers to have x-ray done at [facility] facility. Requisition given to patient She will take Tylenol Arthritis strength 650 mg 2 tablets every 8 hours prn pain Apply heat to back twice a day Return to clinic in 3 months Orders: Orders AMB Joint Injection/Aspiration Today M17.0 - Bilateral primary osteoarthritis of knee AMB Joint Injection/Aspiration Today M17.0 - Bilateral primary osteoarthritis of knee XR lumbar spine 2-3V Today M54.50 - Low back pain, unspecified Medications: New Kenalog (triamcinolone acetonide) 40 mg intra-articular ONCE 1 mL 0RF NS M17.0 - Bilateral primary osteoarthritis of knee lidocaine (PF) 10 mg Infiltration ONCE 1 mL 0RF M17.0 - Bilateral primary osteoarthritis of knee lidocaine (PF) 10 mg Infiltration ONCE 1 mL 0RF M17.0 - Bilateral primary osteoarthritis of knee Kenalog (triamcinolone acetonide) 40 mg intra-articular ONCE 1 mL 0RF NS M17.0 - Bilateral primary osteoarthritis of knee Coding Level of Care Code Est Pt Level 4 (98166) Complex EM visit Add On G2211 Diagnoses Primary osteoarthritis of both knees M17.0 Osteoarthritis type: primary Acute midline low back pain without sciatica M54.50 Chronicity: acute Back pain laterality: midline Sciatica presence: without sciatica CPT Codes Coding - 28942 - Bilateral Large Joint: 66149 - Bilateral Large Joint ([id number]) Coding - 49999 - Bilateral Large Joint: 77312 - Bilateral Large Joint ([id number])
[2025-01-06 14:12] VITALS: BP 158/64; PULSE 76; O2SAT 98; BMI 25.7
--- OUTSIDE RECORDS SUMMARY | 2025-01-06 17:05 | XMS_ITS | Data Portability ---
Author Organization [place] [facility], Allergy Address [address] [place] [address] Care Team Providers Care Medical Or Surgical Instrument Maker Name Role Phone JOSE MIGUEL DELA CRUZ Primary Care Provider [phone] Assessment Encounter Date Assessment Date Assessment LastModified by Organization Details LastModified Time 11/10/2024 11/10/2024 Recommendations: Follow up with referring provider. [email or web address] Not available 11/10/2024 13:54:45 11/10/2024 11/10/2024 Cerumen impactions removed. Audiometric testing reviewed. Dry central perforation right side. Asymmetry of speech discrimination score noted likely due to the conductive component and the hearing loss on the right side. Suggest return to her hearing aid provider for adjustments [email or web address] Not available 11/10/2024 14:40:46 Plan of Treatment Reminders Order Date Submit Date Provider Last Modified By Organization Details Last Modified Time Details Appointments None record ed. Lab None record ed. Referral None record ed. Procedures None record ed. Surgeries None record ed. Imaging None record ed. Medication Orders None record ed. Patient TargetsNo targets recorded. Patient InstructionsNo instructions recorded. Reason for Referral None Reported. Results Created Date Observation Date Name Description Value Unit Range Abnormal Flag Note LastModifiedBy Organization Detail LastModifiedTime 11/11/1905/24/2024 audio gram No observ ation record ed. [email or web address] Not Available 07/2025 08:47:42 11/11/19 audio gram No observ ation record ed. BARCODE Not Available 2024 12:17:01 Result Notes None recorded. 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 2024 JOSHUA DE LEON MD [address], [place], [place], [address] , [place] - [facility] [place] [facility] 12:56:07 Chronic sinusitis 09939186 Active 2024 JOSHUA DE LEON MD [address], [place], [place], [address] , [place] - [facility] 12:56:07 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 1715069172248 101 Active 2024 JOSHUA DE LEON MD [address], [place], [place], [address] , [place] - [facility] 13:19:50 Impacted cerumen in right ear 7867496677299 103 Active 2024 JOSHUA DE LEON MD [address] [facility], [place], [place], [address] , [place] - [facility] 13:19:56 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 22138198 Active 2024 HERMINIO COTTRELL [address], [place], [place], [address] , [place] - [facility] 13:54:26 Sensorineu ral hearing loss 46698996 Active 2024 HERMINIO COTTRELL [address], [place], [place], [address] , [place] - [facility] 13:54:30 Sensorineu ral hearing 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 Procedures Surgical History Date Name Laterality Status Provider Name and Address Organization Details Recorded Time 11/10/2024 Comp Audio with Tymps (30764 & 44774) completed HERMINIO COTTRELL [address] [facility],[place] [address], [place], [address], [place] - [facility] 11/10/2024 13:44:01 Imaging Results Imaging Date Name Status LastModified by Organiz ation Details LastModified Time 05/24/2024 audiogram completed [email or web address] Information n ot available 11/11/2024 08:47:42 11/11/2024 audiogram completed BARCODE Information no t available 11/11/2024 12:17:01 Procedure Notes None recorded. Medical Equipment None Reported. Allergies Allergen ID Allergen Name Allergen Category Reaction Reaction Severity Criticality Documentation Date Start Date Code Code System Note Provider Name and Address Organization Details Recorded Time 10935 penicilli n V potassium medicatio n other Not available Not available 03/16/202466326 5 RxNorm React ion: unkno wn, unspe cifie d;; Not Available [facility] 4 00:52:42 21333 Substance with sulfonami de structure and antibacte rial mechanism of action (substanc e) medicatio n other Not available Not available 03/16/2024 67340 8003 SNOMED React ion: unkno wn, unspe cifie d;; Not Available [facility] 4 00:52:47 Medications Name Sig Start Date Stop Date Status Note LastModified by Organization Details LastModified Time meloxicam 15 mg tablet active Not Available Not Available Not Available prednisone 20 mg tablet TAKE 2 TABLETS BY MOUTH TODAY THEN 2 TABLETS TOMORROW AND THEN 1 TABLET DAILY FOR 4 MORE DAYS 11/10 completed Not Available Not Available Not Available diphenoxyla te-atropine 2.5 mg-0.025 mg tablet TAKE 1 TABLET BY MOUTH TWICE DAILY NEEDED FOR DIARRHEA 11/10 completed Not Available Not Available Not Available tramadol 50 mg tablet TAKE 1 TABLET BY MOUTH ONCE A DAY NEEDED active Not Available Not Available No t Available lorazepam 0.5 mg tablet active Not Available Not Available Not Available trazodone 100 mg tablet active Not Available Not Available Not Available cephalexin 500 mg capsule TAKE 1 CAPSULE BY MOUTH TWICE DAILY 11/10 completed Not Available Not Available Not Available ipratropium bromide 42 mcg (0.06 %) nasal spray USE 2 SPRAYS IN EACH NOSTRIL THREE TIMES DAILY NEEDED FOR ALLERGY SYMPTOMS active Not Available Not Available No t Available fluticasone propionate 50 mcg/actuati on nasal spray,suspe nsion active Not Available Not Available Not Available nitrofurant oin monohydrate /macrocryst als 100 mg capsule TAKE 1 CAPSULE BY MOUTH TWICE DAILY active Not Available Not Available No t Available Lidocaine Pain Relief 4 % topical patch APPLY TOPICALLY TO THE AFFECTED AREA DAILY FOR UP TO 12 HOURS. 12 HOURS ON AND 12 HOURS OFF active Not Available Not Available No t Available Vitals Date Recorded Body height Body mass index (BMI) Body weight Provider Name and Address Organization Details Last Updated DateTime 11/10/2024 162.56 cm 25.7 kg/m2 73830.86 g Surinder Davidson [place] - [facility] 11/10/2024 13:12:38 Social History None recorded. Functional Status None recorded. Mental Status None recorded. Family History Nothing Reported. Medical History Condition Response Arthritis Y Hypertension Y Gynecological HistoryNo gynecological history recorded. Obstetrics History GPAL:G 0 P 0 0 0 0 Past Encounters Encounter ID Performer Location Encounter Start Date Encounter Closed Date Diagnosis/Indication Diagnosis SNOMED-CT Code Diagnosis ICD10 Code Diagnosis Note [id number] JOSHUA DE LEON MD [facility] [address] [address] 11/10/2024 12:46:39 11/10/2024 14:14:20 Sensorineural hearing loss in left ear 9578925852 9109 H90.A22 Mixed cond uctive and sensorineural hearing loss of right ear 7258329847 9105 H90.A31 Central pe rforation of right tympanic membrane 5248669993 124019 H72.01 Impacted c erumen in right ear 6670546494 461159 H61.21 [id number] HERMINIO COTTRELL [facility] of [address] [place] [address] 11/10/2024 13:40:53 11/10/2024 15:25:26 Mixed conductive AND sensorineural hearing loss 85999982 H90.A31 [facility]{{Norm al sloping Mi ld Moderat e Moderate ly-severe Severe* Pr ofound Nor mal auditory thresholds }} to {{mild mod erate mode rately-sev ere severe profound* with}} {{sensorin eural hearing loss with condu ctive hearing loss with mixed hearing loss with*}} {{excellen t good bella r poor* no t measurable }} word recognitio n.Left ear:{{Norm al sloping Mi ld* Modera te Moderat yun-severe Severe Pr ofound Nor mal auditory thresholds }} to {{mild mod erate mode rately-sev ere severe * profound with}} {{sensorin eural hearing loss with* cond uctive hearing loss with mixed hearing loss with}} {{excellen t good bella r* poor no t measurable }} word recognitio n.Tympanom etry:Right Ear:{{Type A Type As Type Ad Type C Type C, shallow & rounded Ty pe B Type B with large volume* Co uld not maintain a hermetic seal}}Left Ear:{{Type A Type As Type Ad* Type C Type C, shallow & rounded Ty pe B Type B with large volume Cou ld not maintain a hermetic seal}} Sensorineu ral hearing loss 04783018 H90.A22 Health Concerns Section Related Observation LastModified by Organization Detai ls LastModified Time None Recorded Concern Status LastModified by Organization Details LastModified Time None Recorded Advance Directives Directive None Recorded Payers Encounter Date Sequence Insurance Name Policy Number Policy Yoo Covered Member ID Yoo Member ID Guarantor Name 11/10/2024 1 MEDICARE [place]: [employer] Carine Huy Moe [id number] Carine P Abhi 11/10/2024 2 [place] [id number] Carine Huy Moe [id number] Carine P Abhi 11/10/2024 1 MEDICARE [place]: [employer] Carine P Abhi [id number] Carine P Moe 11/10/2024 2 [place] [id number] Carine P Abhi [id number] Carine Huy Moe Notes Date Note Type Note Provider Name and Address Organization Details Recorded Time 11/10/2024 text/html Hearing aids fro m [employer]. PCP office said no wax but [employer] said wax in ears. Wearing hearing aids for 10 years. 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 No drainage JOSHUA ZAVALA MD [address] [facility],[address], [address], [facility] - [facility] 11/10/2024 14:40:59 11/10/2024 text/html Audiological Evaluation HPIReported bypatient.Hearing loss perceived:hearing loss in both ears: right ear worse Use of amplification or other hearing deviceshearing aid: both ears HERMINIO COTTRELL [address] [facility],[address], [address], [place] - [facility] 11/10/2024 13:55:23 OBGyn Episode No OBEpisode recorded.
--- OUTSIDE RECORDS SUMMARY | 2025-01-06 17:05 | XMS_ITS | Encounter Summary ---
Author Organization [facility] Address [address] [place] [address] Care Team Providers Care Outbound Sales Professional Name Role Phone Madyson Givens MD Primary Care Provider Encounter Details Date Type Department Care Team (Late st Contact Info) Description 10/13/[address] [facility] - Main Lab [address] [facility] [place] [address] Blade Plummer PA [address] [facility] [address] [place] [address] Pyuria Social History Tobacco Use Types Packs/Day Years Used Date Smoking Tobacco: Former Cigarettes Q uit: 11/03/1999 Smokeless Tobacco: Never Alcohol Use Standard Drinks/Week Comments No 0 (1 standard drink = 0.6 oz pur e alcohol) Comments Unknown Sex and Gender Information Value Date Recorded Sex Assigned at Not on file Legal Sex Female 4:35 PM EST Gender Identity Not on file Sexual Orientation Not on file documented as of this encounter Plan of Treatment Not on file documented as of this encounter Procedures Procedure Name Priority Date/Time Associated Diagnosis Comments BACTERIAL IDENTIFICATION AND SUSCEPTIBILITY, AEROBIC Routine 10/12/2024 12:00 AM EST Pyuria documented in this encounter Results * (ABNORMAL) Bacterial identification and susceptibility, aerobic (10/12/2024 12:00 AM EST) Culture, Bacterial ID and Sensitivity Escherichia coli(A) PATRICIA 10/15/2024 7:48 AM EST [facility] Other Urine specimen from urethra / Unknown 10/12/2024 10/13/2024 10:56 AM EST Narrative Organism Antibiotic Method Susceptibility Escherichia coli Amoxicillin/Clavulanate PATRICIA 16 ug/ml: Intermediate Escherichia coli Ampicillin/Sulbactam PATRICIA >=32 ug/ml: Resistant Escherichia coli Piperacillin/Tazobactam PATRICIA <=4 ug/ml: Susceptible Escherichia coli Cefazolin (Urine) Escherichia coli Cefoxitin PATRICIA <=4 ug/ml: Susceptible Escherichia coli Ceftazidime PATRICIA <=0.5 ug/ml: Susceptible Escherichia coli Ceftriaxone PATRICIA <=0.25 ug/ml: Susceptible Escherichia coli Cefepime PATRICIA <=0.12 ug/ml: Susceptible Escherichia coli Meropenem PATRICIA <=0.25 ug/ml: Susceptible Escherichia coli Amikacin PATRICIA 2 ug/ml: Susceptible Escherichia coli Gentamicin PATRICIA <=1 ug/ml: Susceptible Escherichia coli Ciprofloxacin PATRICIA <=0.06 ug/ml: Susceptible Escherichia coli Levofloxacin PATRICIA <=0.12 ug/ml: Susceptible Escherichia coli Nitrofurantoin PATRICIA <=16 ug/ml: Susceptible Escherichia coli Trimethoprim/Sulfame thoxazo le PATRICIA >=320 ug/ml: Resistant Escherichia coli Amikacin DISK DIFFUSION Escherichia coli Amoxicillin/Clavulanate DISK DIFFUSIO N Escherichia coli Ampicillin/Sulbactam DISK DIFFUSION Escherichia coli Cefazolin DISK DIFFUSION Susceptible Escherichia coli Cefepime DISK DIFFUSION Escherichia coli Cefoxitin DISK DIFFUSION Escherichia coli Ceftazidime DISK DIFFUSION Escherichia coli Ceftriaxone DISK DIFFUSION Escherichia coli Ciprofloxacin DISK DIFFUSION Escherichia coli Gentamicin DISK DIFFUSION Escherichia coli Levofloxacin DISK DIFFUSION Escherichia coli Meropenem DISK DIFFUSION Escherichia coli Piperacillin/Tazobactam DISK DIFFUSIO N Escherichia coli Trimethoprim/Sulfame thoxazo le DISK DIFFUSION us [facility] MICROBIOLOGY - GENERAL ORDER MAXIMILIANO Final Result [facility] [address] [place] [address], documented in this encounter Visit Diagnoses Diagnosis Pyuria Other nonspecific finding on examination of urine documented in this encounter Care Teams Outbound Sales Professional Relationship Specialty Start Date End Date Madyson Givens MD PCP - General Internal Medicine 11/29/20 documented as of this encounter
--- OUTSIDE RECORDS SUMMARY | 2025-01-06 17:05 | XMS_ITS | Clinical Summary ---
Author Organization [address] Address [address] [place] [phone] Phone Care Team Providers Care Quality Assurance Manager Name Role Phone Madyson Givens MD Primary Care Provider [phone] Encounters Date Type Department Care Team Description 10/13/2024 Lab Requisition [facility] - Main Lab [address] [place] [address] Blade Plummer PA Pyuria from Last 3 Months Medical History Medical History Date Comments Asthma 05/29/2017 DX:Asthma Hyperlipidemia 03/26/2017 DX:Hyperlipidemi a Hypertension 03/28/2017 DX:Hypertension Mitral valve insufficiency 05/14/2017 DX:Mi tral valve insufficiency Peripheral venous insufficiency 05/14/2017 DX:Peripheral venous insufficiency Pulmonary nodule 05/29/2017 DX:Pulmonary no dule Renal insufficiency 03/26/2017 DX:Renal ins ufficiency Urinary incontinence 05/14/2017 DX:Urinary incontinence Social History Tobacco Use Types Packs/Day Years [...] on file Sexual Orientation Not on file Obstetrics History Last Filed Vital Signs Vital Sign Reading Time Taken Comments Blood Pressure 124/68 06/25/2024 9:23 AM EDT Sitting R Arm Pulse 67 06/25/2024 9:23 AM EDT Temperature - - Respiratory Rate - - Oxygen Saturation - - Inhaled Oxygen Concentration - - Weight 73.4 kg (161 lb 14.4 oz) 06/25/2024 9:23 AM EDT Height 163.8 cm (5' 4.5 ) 06/25/2024 9: 23 AM EDT Body Mass Index 27.36 06/25/2024 9:23 AM EDT Plan of Treatment Health Maintenance Due Date Last Done Comments Diabetes: Annual Foot Exam 1946 Diabetes: Annual Retina Eye Exam 1945 DTaP,Tdap,and Td Vaccines (1 - Tdap) 1955 Zoster Vaccines (1 of 2) 1986 RSV Immunization Patients 60 + Years Old (1 - 1-dose 75+ series) 2011 Cholesterol Screening (Lipid Panel) 10/12/2022 Depression Screening 10/12/2022 Falls Risk Assessment 10/12/2022 Medicare Annual Wellness Visit 10/12/2022 Osteoporosis Screening (Bone Density Screening) 10/12/2022 Social Influencers of Health Screening 10/12/2022 COVID-19 Vaccine ( - 2023-2 5 season) 2024 Influenza Vaccine (#1) 2024 9, 01/20/2018, 08/03/2013 Diabetes: Blood Sugar Contro l Test (HGBA1C) 11/15/2024 Hypertension/CHF/CAD Annual BMP Blood Test 11/11/2025 11/11/2024, 11/11/2024 Pneumococcal Vaccine: 50+ Years Completed 08/03/2019, 07/28/2014 HIB Vaccines Aged Out No longer eligi ble based on patient's age to complete this topic HPV Vaccines Aged Out No longer eligi ble based on patient's age to complete this topic Hepatitis A Vaccines Aged Out No long er eligible based on patient's age to complete this topic Hepatitis B Vaccines Aged Out No long er eligible based on patient's age to complete this topic IPV Vaccines Aged Out No longer eligi ble based on patient's age to complete this topic MMR Vaccines Aged Out No longer eligi ble based on patient's age to complete this topic Meningococcal ACWY Vaccine Aged Out N o longer eligible based on patient's age to complete this topic Meningococcal B Vacine Aged Out No lo nger eligible based on patient's age to complete this topic RSV Immunization Patients Under 20 months Aged Out No longer eligible b ased on patient's age to complete this topic Varicella Vaccines Aged Out No longer eligible based on patient's age to complete this topic Procedures Procedure Name Priority Date/Time Associated Diagnosis Comments BACTERIAL IDENTIFICATION AND SUSCEPTIBILITY, AEROBIC Routine 10/12/2024 12:00 AM EST Pyuria from Last 3 Months Results * (ABNORMAL) Bacterial identification and susceptibility, aerobic (10/12/2024 12:00 AM EST) Culture, Bacterial ID and Sensitivity Escherichia coli(A) PATRICIA 10/15/2024 7:48 AM EST [facility] Other Urine specimen from urethra / [...] MICROBIOLOGY - GENERAL ORDER MAXIMILIANO Final Result [facility] HOSPITAL LAB [address] [place] [address], [place] [phone] from Last 3 Months Insurance [facility] MEDICAID - [place] [employer] MEDICARE [facility] MEDICAID ADVANTAGE Care Teams Quality Assurance Manager Relationship Specialty Start Date End Date Madyson Givens MD PCP - General Internal Medicine 11/29/20
--- OUTSIDE RECORDS SUMMARY | 2025-01-06 17:05 | XMS_ITS | Encounter Summary ---
Author Organization [facility] Address [address] [place] [address] Phone Care Team Providers Care Second Baller Name Role Phone Madyson Givens MD Primary Care Provider [phone] Reason for Visit * Reason Comments Med Refill Encounter Details Date Type Department Care Team (Late Contact Info) Description 06/04/2022 Refill [facility] [address] [place] [address] Star Gore MD [address] [place] [address] Social History Tobacco Use Types Packs/Day Years Used Date Smoking Tobacco: Former Cigarettes Smokeless Tobacco: Never Comments:Smoking History Inf o:Every day Alcohol Use Standard Drinks/Week Comments Yes 0 (1 standard drink = 0.6 oz pure alcohol) Alcoholic Drinks/day: Occasional social drink Comments Unknown Sex and Gender Information Value Date Recorded Sex Assigned at Not on file Legal Sex Female 5:10 PM EST Gender Identity Not on file Sexual Orientation Not on file documented as of this encounter Plan of Treatment Upcoming Encounters Date Type Department Care Team (Late st Contact Info) Description 03/15/2025 11:20 AM EDT Office Visit [facility] [address] [address] Star Gore MD [address] [place] [address] documented as of this encounter Visit Diagnoses Not on filedocumented in this encounter Care Teams Second Baller Relationship Specialty Start Date End Date Madyson Givens MD [address] PCP - General Internal Medicine 11/15/24 documented as of this encounter
--- OUTSIDE RECORDS SUMMARY | 2025-01-06 17:05 | XMS_ITS | Encounter Summary ---
Author Organization [facility] Address [address] [address] Phone Care Team Providers Care Business Management Analyst Name Role Phone Madyson Givens MD Primary Care Provider [phone] Reason for Visit * Reason Onset Date Comments Med Refill 12/22/2024 Encounter Details Date Type Department Care Team (Late st Contact Info) Description 12/22/2024 Refill [facility] [address] [address] Mar Glass [address] [place] [address] Social History Tobacco Use Types Packs/Day [...] Office Visit [facility] [address] [address] Star Gore MD [address] [address] documented as of this encounter Visit Diagnoses Not on filedocumented in this encounter Care Teams Business Management Analyst Relationship Specialty Start Date End Date Madyson Givens MD [address] PCP - General Internal Medicine 11/15/24 documented as of this encounter
--- OUTSIDE RECORDS SUMMARY | 2025-01-06 17:05 | XMS_ITS | Data Portability ---
Author Organization [place] [facility] [place] Address [address] [place] [address] Care Team Providers Care Medicare Sales Representative Name Role Phone JOSE MIGUEL DELA CRUZ Primary Care Provider JOSE MIGUEL DELA CRUZ Referring Provider [phone] Assessment Encounter Date Assessment Date Assessment LastModified [...] buttock pain. This is not radicular. Her ring rolling machine operator gave her an injection to the right [...] physical examination, tests/diagnostic imaging, and treatment plan [email or web address] Not available 09/22/2024 14:37:42 Plan of Treatment Reminders Order Date Submit Date Provider Last Modified By Organization Details Last Modified Time Details Appointments None recorded. Lab None recorded. Referral orthopedic physical therapist referral - Additional Comments: 2023 024 [email or web address] Not available 14:25:50 Procedures None recorded. Surgeries None recorded. Imaging XR, sacrum + coccyx, 2 or more view 2023 024 [email or web address] 2 [facility], [address], [place], [address], 14:20:37 Medication Orders None recorded. Patient TargetsNo targets recorded. Patient Instructions Encounter Date Encounter Id Patient Instructions Last Modified By Organization Details Last Modified Time 09/22/2024 [id number] X-rays of the sacrum and coccyx were performed on 09/22/2024 which are negative for acute fracture. Question of callus formation at the inferior aspect of the sacrum. [email or web address] Not available 09/22/2024 14:37:33 Reason for Referral [...] Time Trochanteri c bursitis of right hip [id number] 00 Active 2023 KLEBER HOYOS PA-C [address], [place], [address], [place] [facility], [facility] 4 14:23:51 Low back pain 231182122 Active 2023 KLEBER HOYOS PA-C [address], [place], [address], [place] [facility], [facility] 4 14:24:05 Problem Notes None recorded. [...] Updated DateTime 09/22/2024 162.56 cm 26.6 kg/m2 56488.82 g Dayn Berger [place] [facility] 09/22/2024 13:58:47 Social History Question Answer Notes LastModified by Organizat ion Details LastModified Time Tobacco Smoking Status Never Smoker Dyan kwong, [place] [facility] 09/22/2024 13:58:54 What Is Your Level Of Alcohol Consumption? None [email or web address] Information not available 09/22/2024 Do You Use Any Illicit Or Recreational Drugs? No [email or web address] Information not available 09/22/2024 Do You Or Have You Ever Used Any Other Forms Of Tobacco Or Nicotine? No Information not available 09/22/2024 Sex: Unknown Functional Status None recorded. Mental Status None recorded. Family History Relationship Description Onset Age of this Age Resolved Age Notes LastModified by Organization Details LastModified Time Mother History of cancer of unknown primary site Not available 1 11/22/2023 13:59:28 Father Heart disease [email or web address] Not available 09/04 13:59:39 Father Hypercholest erolemia [email or web address] Not available 09/04 13:59:47 Father Hypertensive disorder Not available 09/04 13:59:56 Medical History Condition Response Gout Y Hypertension Y Gynecological HistoryNo gynecological history recorded. Obstetrics History GPAL:G 0 P 0 0 0 0 Past Encounters Encounter ID Performer Location Encounter Start Date Encounter Closed Date Diagnosis/Indication Diagnosis SNOMED-CT Code Diagnosis ICD10 Code Diagnosis Note [id number] Chandler Duncan MD [address] [address] 09/22/2024 13:34:43 09/22/2024 14:20:37 Sacral back pain 90271023 M53.3 Trochanter ic bursitis of right hip [id number] 47262 M70.61 Low back pain 646793193 M54.50 Health Concerns Section Related Observation LastModified by Organization Detai ls LastModified Time None Recorded Concern Status LastModified by Organization Details LastModified Time None Recorded Advance Directives Directive None Recorded Payers Encounter Date Sequence Insurance Name Policy Number Policy Yoo Covered Member ID Yoo Member ID Guarantor Name 09/22/2024 2 [place] [id number] Carine Moe [id number] Carine Moe 09/22/2024 1 [facility] - DUAL ELIGIBLE (MEDICARE REPLACEMENT/A DVANTAGE - PPO) [id number] Carine Moe [id number] Carine Moe OBGyn Episode No OBEpisode recorded.
--- OUTSIDE RECORDS SUMMARY | 2025-01-06 17:05 | XMS_ITS | Encounter Summary ---
Author Organization [facility] Address [address] [facility] [address] [place] [address] Phone Care Team Providers Care Assistant Chief Of Police Name Role Phone Madyson Givens MD Primary Care Provider [phone] Encounter Details Date Type Department Care Team (Late Contact Info) Description 12/30/2024 Telephone [facility] [address] [facility] [address] [place] [address] Erika Mitchell [address] [place] [address] Social History Tobacco Use Types Packs/Day Years [...] on file documented as of this encounter Miscellaneous Notes * Telephone Encounter - Erika Mitchell - 12/30/2024 11:48 AM EST Patient calls states that her mouth has been dry and salty off and on for the last month. She thought it may be due to her torsemide so she has decreased the medication to 1 pill a day. Also states she been having some edema times a week bilateral feet and legs....Please advise documented in this encounter Plan of Treatment Upcoming Encounters Date Type Department Care Team (Late Contact Info) Description 03/15/2025 11:20 AM EDT Office Visit [facility] [address] [address] Star Gore MD [address] [address] documented as of this encounter Visit Diagnoses Not on filedocumented in this encounter Care Teams Assistant Chief Of Police Relationship Specialty Start Date End Date Madyson Givens MD [address] [place] [address] PCP - General Internal Medicine 11/15/24 documented as of this encounter
--- OUTSIDE RECORDS SUMMARY | 2025-01-06 17:05 | XMS_ITS | Encounter Summary ---
Author Organization [facility] Address [address] [facility] [address] [place] [address] Phone Care Team Providers Care Career Professional Name Role Phone Madyson Givens MD Primary Care Provider [phone] Reason for Visit * Reason Onset Date Comments Med Refill 01/06/2025 Encounter Details Date Type Department Care Team (Late st Contact Info) Description 01/06/2025 Refill [facility] [address] [facility] [address] [place] [phone] Yumiko Campos MA [address] [facility] [address] [place] [phone] Social History Tobacco Use Types Packs/Day Years [...] Office Visit [facility] [address] [facility] [address] [place] [phone] Star Gore MD [address] [facility] [address] [place] [address] documented as of this encounter Visit Diagnoses Not on filedocumented in this encounter Care Teams Career Professional Relationship Specialty Start Date End Date Madyson Givens MD [address] PCP - General Internal Medicine 11/15/24 documented as of this encounter
--- OUTSIDE RECORDS SUMMARY | 2025-01-06 17:05 | XMS_ITS | Encounter Summary ---
Author Organization [facility] Address [address] [facility] [address] [place] [address] Phone Care Team Providers Care Pile Driver Operator Barge Mounted Name Role Phone Madyson Givens MD Primary Care Provider [phone] Reason for Visit * Reason Onset Date Comments Med Refill 01/04/2025 Encounter Details Date Type Department Care Team (Late st Contact Info) Description 01/04/2025 Refill [facility] [address] [facility] [address] [place] [phone] Yumiko Campos [place] [address] [facility] [address] [place] [phone] Social History Tobacco Use Types Packs/Day Years [...] Office Visit [facility] [address] [facility] [address] [place] [phone] Star Gore MD [address] [facility] [address] [place] [address] documented as of this encounter Visit Diagnoses Not on filedocumented in this encounter Care Teams Pile Driver Operator Barge Mounted Relationship Specialty Start Date End Date Madyson Givens MD [address] PCP - General Internal Medicine 11/15/24 documented as of this encounter
--- OUTSIDE RECORDS SUMMARY | 2025-01-06 17:05 | XMS_ITS | Encounter Summary ---
Author Organization [facility] Address [address] [facility] [address] [place] [address] Phone Care Team Providers Care Efficiency Manager Name Role Phone Madyson Givens MD Primary Care Provider [phone] Reason for Visit * Reason Onset Date Comments Med Refill 01/06/2025 Encounter Details Date Type Department Care Team (Late st Contact Info) Description 01/06/2025 Refill [facility] [address] [facility] [address] [place] [phone] Yumiko Campos [place] [address] [facility] [address] [place] [phone] Social History Tobacco Use Types Packs/Day Years [...] Office Visit [facility] [address] [facility] [address] [place] [phone] Star Gore MD [address] [facility] [address] [place] [address] documented as of this encounter Visit Diagnoses Not on filedocumented in this encounter Care Teams Efficiency Manager Relationship Specialty Start Date End Date Madyson Givens MD [address] PCP - General Internal Medicine 11/15/24 documented as of this encounter
--- OUTSIDE RECORDS SUMMARY | 2025-01-06 17:05 | XMS_ITS | Clinical Summary ---
Author Organization [facility] Address [address] [address] Phone Care Team Providers Care Collar Tacker Name Role Phone Madyson Givens MD Primary Care Provider [phone] Allergies Active Allergy Reactions Criticality Noted Date Comments Levofloxacin Other (see comments) 11/27/2010 joint pain Medications Sodium Hyaluronate, oral, (Hyaluronic Acid) 100 MG capsule Take 2 tablets by mouth 1 (one) time each day Active B Complex-C (VITAMIN B + C COMPLEX PO) Take 1 tablet by mouth 1 (one) time each day Active cetirizine (ZyrTEC) 10 MG tablet at bed time Active traMADol (ULTRAM) 50 MG tablet Take 50 mg by mouth 1 Active omeprazole (PriLOSEC) [address] capsule Take 1 capsule by mouth 1 (one) time each day Active fluticasone-myriam meterol (ADVAIR DISKUS) 250-50 MCG/DOSE diskus inhaler Comments: Filled Date: Jun 27 2017 12:00AM Duration: 7 Active albuterol HFA (PROVENTIL HFA;VENTOLIN HFA) 108 (90 Base) MCG/ACT inhaler INHALE 2 PUFFS INTO THE LUNGS EVERY 6 HOURS NEEDED FOR SHORTNESS OF BREATH OR WHEEZING 2 Active fluticasone (FLONASE) 50 MCG/ACT nasal spray SHAKE LIQUID AND USE 2 SPRAYS IN EACH NOSTRIL DAILY 2 Active D-MANNOSE PO Take 2 tablets by mouth 1 (one) time each day in the morning Active Vibegron (Gemtesa) 75 MG tablet Take 75 mg by mouth 1 (one) time each day Active saccharomyces boulardii (FLORASTOR) 250 MG capsule Take 250 mg by mouth in the morning and 250 mg in the evening. Active Cholecalciferol (Vitamin D) 50 MCG (2000 UT) capsule Take by mouth Active Magnesium 500 MG capsule Take by mouth Activ e co-enzyme Q-10 30 MG capsule Take 30 mg by mouth 1 (one) time each day Active aspirin (ST NAYELY) 81 MG EC tablet Take 81 mg by mouth 1 (one) time each day Active simvastatin (ZOCOR) 20 MG tablet TAKE 1 TABLET BY MOUTH ONCE DAILY 90 tablet 3 4 Active spironolactone (ALDACTONE) 25 MG tablet TAKE 1 TABLET BY MOUTH DAILY 90 tablet 3 4 Active allopurinol (ZYLOPRIM) 300 MG tablet TAKE 1 TABLET BY MOUTH ONCE DAILY 90 tablet 3 4 Active carvedilol (COREG) 25 MG tablet Take 1 tablet (25 mg total) by mouth in the morning and 1 tablet (25 mg total) in the evening. 180 tablet 3 5 Active torsemide (DEMADEX) 20 MG tablet Take 1 tablet (20 mg total) by mouth in the morning and 1 tablet (20 mg total) in the evening. 200 tablet 3 5 01/07/20 26 Active carvedilol (COREG) 25 MG tablet TAKE 1 TABLET BY MOUTH TWICE DAILY 180 tablet 3 3 12/22/19 25 Discontinu ed(Reorder (does not appear on AVS)) torsemide (DEMADEX) 20 MG tablet TAKE 1 TABLET BY MOUTH EVERY MORNING AND 1 TABLET IN THE EVENING 200 tablet 2 4 01/05/20 25 Discontinu ed(Reorder (does not appear on AVS)) torsemide (DEMADEX) 20 MG tablet Take 1 tablet (20 mg total) by mouth in the morning and 1 tablet (20 mg total) in the evening. 200 tablet 3 5 01/07/20 25 Discontinu ed(Reorder (does not appear on AVS)) Active Problems Problem Noted Date Diagnosed Date Hyperparathyroidism, not otherwise specified 05/2024 Obese class II 07/02/2023 07/02/2023 Bacteriuria 03/18/2023 07/02/2023 Overview (07/02/2023): Last Assessment & Plan: I had a long discussion with Carine and her daughter regarding asymptomatic bacteriuria. This is highly prevalent in elderly patients, particularly elderly females with urinary incontinence. It can become essentially impossible to sterilize the urine, as patients become remain chronically colonized. Fortunately, she has not had urosepsis, gross hematuria, worsening voiding symptoms, confusion or infection stones related to this chronic bacteriuria. I recommended alternate approach, trying to somewhat suppress the colonization without the goal of complete eradication. Methenamine hippurate and the herbal compound d-mannose can both be helpful in keeping bacterial counts somewhat lower. I used the analogy that this is similar to the bacteria which chronically coloniz our mouths, and that no amount of Listerine can sterilize the oral cavity so that is not the goal. They asked reasonable questions and are willing to try my approach. Recurrent urinary tract infection 06/04/2022 Anemia in chronic kidney disease 05/08/2021 Chronic kidney disease stage 4 05/08/2021 Edema 05/08/2021 Renovascular hypertension 05/08/2021 Hypertension 05/08/2021 Hypercalcemia 05/08/2021 Cyst of kidney 05/08/2021 Gout, not otherwise specified 05/08/2021 Hyponatremia 05/08/2021 Type 2 diabetes mellitus without complication Mitral valve regurgitation 05/14/2017 Resolved Problems Problem Noted Date Diagnosed Date Resolved Date Acute nontraumatic kidney injury 05/08/2021 03/09/2024 Hyperparathyroidism due to r enal insufficiency 05/08/2021 12/05/2021 Ischemic nephropathy 05/08/2021 022 Overweight 05/08/2021 12/05/2021 At increased risk for cardiovascular event 05/08/2021 12/05/2021 Pemphigoid, not otherwise specified 05/08/2021 12/05/2021 Osteoarthritis involving knee 05/08/2021 12/05/2021 Urinary incontinence, not otherwise specified 05/08/20 21 12/05/2021 Encounters Date Type Department Care Team Description 01/06/2025 Refill [facility] [address] [address] Yumiko Campos MA 01/06/2025 Refill [facility] [address] [phone] Yumiko Campos MA 01/04/2025 Refill [facility] [address] [phone] Yumiko Campos MA 12/30/2024 Telephone [facility] [address] [phone] Erika Mitchell 12/22/2024 Refill [facility] [address] [phone] Quan Mar 11/15/2024 11:40 AM EST Office Visit [facility] [address] [address] Star Gore MD Chronic kidney disease stage 4 (HCC) (Primary Dx); Anemia in chronic kidney disease; Edema, not otherwise specified; Gout, not otherwise specified; Hypercalcemia; Hypertension; Renovascular hypertension; Type 2 diabetes mellitus without complication (HCC) 11/13/2024 Orders Only [facility] [address] [phone] Star Gore MD Chronic kidney disease stage 4 (HCC); Gout, not otherwise specified; Hypercalcemia; Hypertension; Hyponatremia; Renovascular hypertension; Type 2 diabetes mellitus without complication (HCC) 11/11/2024 Orders Only [facility] [address] [address] Star Gore MD 10/11/2024 Refill [facility] [place] [address] [facility] [address] [place] [address] Star Gore MD from Last 3 Months Immunizations Name Administration Dates Next Due Influenza Split High Dose Preservative Free IM 1 ,08/03/2013 Influenza TIV (IM) 01/20/2018 Pneumococcal Conjugate 13-Valent 08/03/2019 Pneumococcal Polysaccharide 07/28/2014 Family History Medical History Relation Comments Heart disease Father Hypertension Father Stroke Father Cancer Mother breast cancer Relation Status Comments Father Mother Social History Tobacco Use Types Packs/Day Years Used Date Smoking Tobacco: Former Cigarettes Smokeless Tobacco: Never Tobacco Cessation:Counseling Given: Not Answered Comments:Smoking History Info:Every day Alcohol Use Standard Drinks/Week Comments Yes 0 (1 standard drink = 0.6 oz pure alcohol) Alcoholic Drinks/day: Occasional social drink Comments Unknown Sex and Gender Information Value Date Recorded Sex Assigned at Not on file Legal Sex Female 5:10 PM EST Gender Identity Not on file Sexual Orientation Not on file Last Filed Vital Signs Vital Sign Reading Time Taken Comments Blood Pressure 114/62 11/15/2024 11:50 AM EST Pulse 66 07/14/2024 12:03 PM EDT Temperature - - Respiratory Rate - - Oxygen Saturation 96% 11/15/2024 11:50 AM EST Inhaled Oxygen Concentration - - Weight 69.1 kg (152 lb 6.4 oz) 11/15/2024 11:50 AM EST Height 162.6 cm (5' 4 ) 07/14/2024 12:03 PM EDT Body Mass Index 26.16 07/14/2024 12:03 PM EDT Plan of Treatment Upcoming Encounters Date Type Department Care Team (Late st Contact Info) Description 03/15/2025 11:20 AM EDT Office Visit [facility] [address] [address] Star Gore MD [address] [phone] Health Maintenance Due Date Last Done Comments Diabetes: Hemoglobin A1C 05/08/2021 05/13/2019 Diabetes: Ophthalmology Exam 05/08/2021 Diabetes: Pedal Pulse Checked 05/08/2021 Diabetes: Sensory Foot Exam 05/08/2021 Diabetes: Visual Foot Exam 05/08/2021 Influenza Vaccine (#1) 2024 9, 01/20/2018, 08/03/2013 Pneumococcal Vaccine: 65+ Years Completed 08/03/2019, 07/28/2014 Hepatitis B Vaccine Aged Out No longe r eligible based on patient's age to complete this topic Procedures Procedure Name Priority Date/Time Associated Diagnosis Comments PTH, INTACT Routine 11/11/2024 1:56 PM EST MAGNESIUM Routine 11/11/2024 1:56 PM EST PHOSPHATE ( PHOSPHORUS) Routine 11/11/2024 1:56 PM EST URIC ACID Routine 11/11/2024 1:56 PM EST VITAMIN D 25 HYDROXY Routine 11/11/2024 1:56 PM EST PROTEIN / CREATININE RATIO, URINE Routine 11/11/2024 1:56 PM EST COMPREHENSIVE METABOLIC PANEL Routine 11/11/2024 1:56 PM EST CBC AND DIFFERENTIAL Routine 11/11/2024 1:56 PM EST BLOOD PANEL (HC) Routine 05/13/2019 12:0 0 AM EDT from Last 3 Months or Most Recently Relevant to Health Maintenance Results * Protein, Total, Random Urine w/Creatinine (Protein/Creat Ratio) (11/11/2024 1:56 PM EST) Creatinine, Ur 43.3 Not Estab. mg/dL [facility] Protein, Ur 7.7 Not Estab. mg/dL [facility] Urine Protein/Creatin ine Ratio 178 0 - 200 mg/g creat [facility] 11/11/2024 1:56 PM EST 11/11/2024 us Star Gore MD LAB URINE ORDERABLES Final Re sult [facility] [address] [place] [address] * Vitamin D 25 Hydroxy (11/11/2024 1:56 PM EST) Pathologist [facility] Vitamin D, 25-OH, Total 44.5 30.0 - 100.0 ng/mL [facility] Comment: Vitamin D deficiency has been defined by the [place] of Medicine and an Endocrine Society practice guideline as a level of serum 25-OH vitamin D less than 20 ng/mL (1,2). The Endocrine Society went on to further define vitamin D insufficiency as a level between 21 and 29 ng/mL (2). 1. IOM ([place] of Medicine). 2010. Dietary reference ?? intakes for calcium and D. [place]: The ?? National [employer] Press. 2. Waqas MF, Carrol STALLINGS, Cherelle DAN, et al. ?? Evaluation, treatment, and prevention of vitamin D ?? deficiency: an Endocrine Society clinical practice ?? guideline. JCEM. 2010; 96(7):1911-30. 11/11/2024 1:56 PM EST 11/11/2024 us Star Gore MD LAB BLOOD ORDERABLES Final Re sult [facility] [address] [place] [address] * (ABNORMAL) CBC and Differential (11/11/2024 1:56 PM EST) Pathologist [facility] WBC 7.8 3.4 - 10.8 x10E3/uL [facility] RBC 3.77 3.77 - 5.28 x10E6/uL [facility] Hemoglobin 11.0(L) 11.1 - 15.9 g/dL [facility] Hematocrit 35.7 34.0 - 46.6 % [facility] MCV 95 79 - 97 fL [facility] MCH 29.2 26.6 - 33.0 pg [facility] MCHC 30.8(L) 31.5 - 35.7 g/dL [facility] RDW 15.3 11.7 - 15.4 % [facility] Platelets 168 150 - 450 x10E3/uL [facility] Neutrophils Relative 61 Not Estab. % [facility] Lymphocytes Relative 26 Not Estab. % [facility] Monocytes 10 Not Estab. % [facility] Eosinophils Relative 3 Not Estab. % [facility] Basophils Relative 0 Not Estab. % [facility] Neutrophils Absolute 4.7 1.4 - 7.0 x10E3/uL [facility] Lymphocytes Absolute 2.0 0.7 - 3.1 x10E3/uL [facility] Monocytes Absolute 0.7 0.1 - 0.9 x10E3/uL [facility] Eosinophils Absolute 0.3 0.0 - 0.4 x10E3/uL [facility] Basophils Absolute 0.0 0.0 - 0.2 x10E3/uL [facility] Immature Granulocytes 0 Not Estab. % [facility] Immature Grans (Absolute) 0.0 0.0 - 0.1 x10E3/uL [facility] 11/11/2024 1:56 PM EST 11/11/2024 us Star Gore MD LAB BLOOD ORDERABLES Final Re sult [facility] [address] [place] [address] * Uric Acid (11/11/2024 1:56 PM EST) Pathologist [facility] Uric Acid 6.3 3.1 - 7.9 mg/dL [facility] Comment:Therapeutic target f or gout patients: <6.0 11/11/2024 1:56 PM EST 11/11/2024 Star Gore MD LAB BLOOD ORDERABLES Final Re sult [facility] [address] [place] [address] * Phosphorus (11/11/2024 1:56 PM EST) [facility] Phosphorus 3.2 3.0 - 4.3 mg/dL [facility] 11/11/2024 1:56 PM EST 11/11/2024 Star Gore MD LAB BLOOD ORDERABLES Final Re sult Performing Organization Address [facility]/ZIP Co de Phone Number [facility] [address] [place] [address] * PTH, Intact (11/11/2024 1:56 PM EST) [facility] PTH 17 15 - 65 pg/mL [facility] 11/11/2024 1:56 PM EST 11/11/2024 Star Gore MD LAB BLOOD ORDERABLES Final Re sult Performing Organization Address City/[facility]/ZIP Co de Phone Number [facility] [address] [place] [address] * (ABNORMAL) Magnesium (11/11/2024 1:56 PM EST) Pathologist [facility] Magnesium 1.5(L) 1.6 - 2.3 mg/dL [facility] 11/11/2024 1:56 PM EST 11/11/2024 us Star Gore MD LAB BLOOD ORDERABLES [facility] [address] [place] [address] * (ABNORMAL) Comprehensive Metabolic Panel (11/11/2024 1:56 PM EST) Glucose 71 70 - 99 mg/dL [facility] BUN 34(H) 8 - 27 mg/dL [facility] Creatinine 1.61(H) 0.57 - 1.00 mg/dL [facility] eGFR CKD-EPI CR 2020 31(L) >59 mL/min/1.7 3 [facility] BUN/Creatinine Ratio 21 12 - 28 [facility] Sodium 140 134 - 144 mmol/L [facility] Potassium 4.0 3.5 - 5.2 mmol/L [facility] Chloride 99 96 - 106 mmol/L [facility] Bicarbonate (CO2) 25 20 - 29 mmol/L [facility] Calcium 10.7(H) 8.7 - 10.3 mg/dL [facility] Comment:Verified by repeat analysis Total Protein 5.9(L) 6.0 - 8.5 g/dL [facility] Albumin 4.2 3.7 - 4.7 g/dL [facility] Globulin 1.7 1.5 - 4.5 g/dL [facility] Total Bilirubin 0.6 0.0 - 1.2 mg/dL [facility] Alkaline Phosphatase 143(H) 44 - 121 IU/L [facility] AST (SGOT) 26 0 - 40 IU/L [facility] ALT (SGPT) 26 0 - 32 IU/L [facility] 11/11/2024 1:56 PM EST 11/11/2024 us Star Gore MD LAB BLOOD ORDERABLES Final Re sult [facility] [address] [place] [address] * (ABNORMAL) Blood Panel (05/13/2019 12:00 AM EDT) BUN 33(H) 9 - 20 mg/dl [facility] eGFR 41(L) >60 ml/min [facility] Hemoglobin A1C 6.5(H) <5 % [facility] Carbon Dioxide (CO2) 25 22 - 30 mmol/L [facility] Creatinine 1.5(H) 0.70 - 1.30 mg/dl [facility] Calcium 11.2(H) 8.4 - 10.2 mg/dl [facility] eGFR Non- 34(L) >60 ml/min [facility] Platelets 158 140 - 440 k/uL [facility] Sodium 140 137 - 145 mmol/L [facility] Hgb 13.6 13.0 - 16.5 g/dl [facility] Potassium 4.5 3.5 - 5.1 mmol/L [facility] Hematocrit 41.0 38 - 50 % [facility] 05/13/2019 us [facility] [id number] LICITED RESULTS Final Result [facility] from Last 3 Months or Most Recently Relevant to Health Maintenance Insurance [place]ICARE [place]ID [place] [facility] [place]ARE [place]ICAID [place] Care Teams Collar Tacker Relationship Specialty Start Date End Date Madyson Givens MD [address] [place] [address] PCP - General Internal Medicine 11/15/24
== END 2025-01-06 14:56 | disposition home or self-care (01) ==
PROVIDERS: PCP Internal Medicine; Visit Provider Internal Medicine Rheumatology
DX: M17.0 Bilateral primary osteoarthritis of knee (principal); M54.50 Low back pain, unspecified
CPT/HCPCS: 20610; 99214

== ENCOUNTER → 2025-01-06 13:59 | Outpatient (BNVA) | payer MEDICARE, SELFPAY | PROVIDERS: PCP Internal Medicine; Visit Provider Internal Medicine Rheumatology | DX: M17.0 Bilateral primary osteoarthritis of knee (principal); M54.50 Low back pain, unspecified | CPT/HCPCS: 20610; 99212; J2003; J3300 ==

== ENCOUNTER 2025-04-12 13:02 | Outpatient (AMB) | payer MEDICARE, SELFPAY ==
[2025-04-12 13:06] VITALS: BP 120/70; PULSE 65; O2SAT 98; BMI 26.6
--- NOTE | 2025-04-12 13:06 | MHC.OFFVIS ---
Vital Signs 04/12/25 13:06 Height 5 ft 4.5 in Weight 157 lb 5 oz BMI 26.6 BP 120/70 Blood Pressure Location Lt brachial Position Sitting Pulse 65 Pulse Source Pulse Oximeter Pulse Oximetry (%) 98 Oxygen Delivery Method Room Air Intake Visit Reasons: 3 Months Intake Note: Patient is here for left knee and back cortisone injection Allergies No Known Allergies Allergy (Verified 04/12/25 13:06) HPI HPI 3 Months: Details: She had runny nose early on in the week and has been experiencing increased fatigue. Last week she had a lot more energy and was able to walk longer distances compared to this week. Denies fevers, dyspnea, cough. She had phlegm earlier on in the week that has resolved. Right knee pain is constant. She experiences left knee pain intermittently when walking or going upstairs, which is tolerable. She has constant back pain without with radiculopathy. She applies heat to her back without benefit. In the last 2 months she has been experiencing constant left elbow pain. Aggravated with lifting. She has not self medicated. [facility]LY [facility], [facility] Medical History Pleural effusion Pulmonary nodules Bronchiectasis Asthma Social History Patient Tobacco Use Status: Former Tobacco user Tobacco use type: Cigarette Years Smoked: 25 years Physical Exam Vital Signs: Last Vital Signs Pulse 65 04/12/25 13:06 BP 120/70 04/12/25 13:06 Pulse Ox 98 04/12/25 13:06 Oxygen Delivery Method Room Air 04/12/25 13:06 BMI result Body Mass Index 26.6 Const Other: General: Comfortable Skin: Bruising along her knees and lower extremities. MSK: Tender to palpate along bilateral joint lines of knees. She has mild effusions of bilateral knees. Knee flexion is 120 degrees bilateral. Tender to palpate left medial epicondyle with pain on resisted wrist flexion. Office Procedures AMB Joint Injection/Aspiration Joint Injection/Aspiration Details: Right knee joint Prep: site was prepped using aseptic technique Injected: 40 mg of, Kenalog, with 1 mL of and 1% plain lidocaine Procedure: Informed verbal consent was obtained. The patient tolerated the procedure well. Postprocedure protocol was discussed with patient. Coding 81033 - Large joint Procedure code (CPT) selection complete Office Meds lidocaine (PF) 10 mg/mL (1 %) injection solution Performing Provider: Stan Villa MD Performing Location[place] [facility] Administered by: Stan Villa MD on 04/12/25 22:14 Dose Route Admin Location Dispensed Lot Number Expiration Date [facility] Returned Telephone Equipment Appraiser 10 mg Infiltration 2 mL [id number] [employer] Kenalog 40 mg/mL suspension for injection Performing Provider: Stan Villa MD Performing Location[place] [facility] Administered by: Stan Villa MD on 04/12/25 22:14 Dose Route Admin Location Dispensed Lot Number Expiration Date [facility] Returned Telephone Equipment Appraiser 40 mg intra-articular 1 mL AP [id number] ANSEL[employer] TODDVILLE PHAR Assessment & Plan Assessment & Plan (1) Medial epicondylitis, left elbow: Code(s): M77.02 - Medial epicondylitis, left elbow Category: Medical Plan: Elbow support band prescribed PT ordered Return to clinic in 3 months (2) Lumbar spondylosis: Comment: On L-spine x-ray January 2025. Constant back pain. When I called we discussed conservative management. She agreed to PT. Code(s): M47.816 - Spondylosis without myelopathy or radiculopathy, lumbar region Category: Medical Plan: PT ordered for back strengthening as and continue to apply heat to back as needed Return to clinic in 3 months (3) Osteoarthritis of right knee: Comment: Pain is uncontrolled. Code(s): M17.11 - Unilateral primary osteoarthritis, right knee Category: Medical Qualifiers: Osteoarthritis type: primary Qualified Code(s): M17.11 - Unilateral primary osteoarthritis, right knee Plan: Patient received cortisone injection to right knee Return to clinic in 3 months Patient will call if she is experiencing worsening left knee pain for a sooner appointment for cortisone injection Orders: Orders PT Evaluation and Treatment Today M77.02 - Medial epicondylitis, left elbow PT Evaluation and Treatment Today M47.816 - Spondylosis without myelopathy or radiculopathy, lumbar region AMB Joint Injection/Aspiration Today M17.11 - Unilateral primary osteoarthritis, right knee Medications: New arm brace As directed Dx: medial epicondylitis Left elbow support band. 1 ea 0RF Coding Level of Care Code Est Pt Level 4 (17265) Complex EM visit Add On G2211 Diagnoses Medial epicondylitis, left elbow M77.02 Lumbar spondylosis M47.816 Primary osteoarthritis of right knee M17.11 Osteoarthritis type: primary CPT Codes Coding - 03123 Large joint: 85009 - Large joint ([id number])
--- OUTSIDE RECORDS SUMMARY | 2025-04-12 15:21 | XMS_ITS | Encounter Summary ---
Author Organization [facility] Address [address] [place] [address] Care Team Providers Care Kettle Firer Name Role Phone Madyson Givens MD Primary Care Provider [phone] Encounter Details Date Type Department Care Team (Late st Contact Info) Description 01/21/2025 Lab Requisition [facility] [address] [facility] [place] [address] Bonilla Tate MD [address] [facility] [address] [place] [address] Dysuria Social History Tobacco Use Types Packs/Day Years [...] Comments BACTERIAL IDENTIFICATION AND SUSCEPTIBILITY, AEROBIC Routine 01/20/2025 12:00 AM EDT Dysuria documented in this encounter Results * (ABNORMAL) Bacterial identification and susceptibility, aerobic (01/20/2025 12:00 AM EDT) Culture, Bacterial ID and Sensitivity Proteus mirabilis(A ) PATRICIA 01/22/2025 7:38 AM EDT [facility] Comment: Edited result: Previously reported as Proteus species on 01/21/2025 at 1053 EDT. Other Urine specimen from urinary conduit / Unknown 01/20/2025 01/21/2025 9:54 AM EDT Narrative Organism Antibiotic Method Susceptibility Proteus mirabilis Amoxicillin/Clavulanate PATRICIA <=2 ug/ml: Susceptible Proteus mirabilis Ampicillin/Sulbactam PATRICIA <=2 ug/ml: Susceptible Proteus mirabilis Piperacillin/Tazobactam PATRICIA <=4 ug/ml: Susceptible Proteus mirabilis Cefazolin (Urine) PATRICIA 4 ug/ml: Susceptible Proteus mirabilis Cefoxitin PATRICIA 8 ug/ml: Susceptible Proteus mirabilis Ceftazidime PATRICIA <=0.5 ug/ml: Susceptible Proteus mirabilis Ceftriaxone PATRICIA <=0.25 ug/ml: Susceptible Proteus mirabilis Cefepime PATRICIA <=0.12 ug/ml: Susceptible Proteus mirabilis Meropenem PATRICIA 0.5 ug/ml: Susceptible Proteus mirabilis Amikacin PATRICIA 4 ug/ml: Susceptible Proteus mirabilis Gentamicin PATRICIA <=1 ug/ml: Susceptible Proteus mirabilis Ciprofloxacin PATRICIA <=0.06 ug/ml: Susceptible Proteus mirabilis Levofloxacin PATRICIA <=0.12 ug/ml: Susceptible Proteus mirabilis Nitrofurantoin PATRICIA 128 ug/ml: Resistant Proteus mirabilis Trimethoprim/Sulfamethoxazole PATRICIA <=20 ug/ml: Susceptible us Bonilla Tate MD LAB MICROBIOLOGY - GENERAL ORDER MAXIMILIANO Final Result Performing Organization Address [facility]/State/ZIP Co de Phone Number [facility] ([facility] [address] [place] [address], documented in this encounter Visit Diagnoses Diagnosis Dysuria documented in this encounter Care Teams Kettle Firer Relationship Specialty Start Date End Date Madyson Givens MD PCP - General Internal Medicine 11/29/20 documented as of this encounter
== END 2025-04-12 13:54 | disposition home or self-care (01) ==
LOC: HO.RHES 13:03
PROVIDERS: PCP Internal Medicine; Visit Provider Internal Medicine Rheumatology
DX: M77.02 Medial epicondylitis, left elbow (principal); M47.816 Spondylosis without myelopathy or radiculopathy, lumbar region; M17.11 Unilateral primary osteoarthritis, right knee
CPT/HCPCS: 20610; 99214

== ENCOUNTER → 2025-04-12 13:02 | Outpatient (BNVA) | payer MEDICARE, SELFPAY | PROVIDERS: PCP Internal Medicine; Visit Provider Internal Medicine Rheumatology | DX: M77.02 Medial epicondylitis, left elbow (principal); M47.816 Spondylosis without myelopathy or radiculopathy, lumbar region; M17.11 Unilateral primary osteoarthritis, right knee | CPT/HCPCS: 20610; 99212; J2003; J3300 ==

== ENCOUNTER 2025-05-23 14:02 | Outpatient (AMB) | payer MEDICARE, SELFPAY ==
[2025-05-23 14:10] VITALS: BP 114/50; BMI 26.3
--- NOTE | 2025-05-23 14:10 | MHC.OFFVIS ---
Vital Signs 05/23/25 14:10 Height 5 ft 4.5 in Weight 155 lb 6.814 oz BMI 26.3 BP 114/50 L Blood Pressure Location Lt brachial Position Sitting Intake Visit Reasons: COPD Allergies No Known Allergies Allergy (Verified 05/23/25 14:14) HPI Comments Details: Patient is an 89-year-old woman with known history of asthma in addition to bronchiectasis and pulmonary nodules. Overall she has been doing well from a respiratory status. She does have an Advair inhaler but she is seldom uses it. Mainly when she gets sick. She has required at all the summer. She does not have a rescue inhaler her. She should have 1 readily available. She did have a repeat CT scan of the chest at radiology imaging in and feels back in November 2019. I personally reviewed the CT scan demonstrating numerous pulmonary nodules were unchanged when compared to CT scan from 2017. At this point will plan to repeat the CT scan in November 2020. 12/15/2020 the patient has a telephone visit. Overall the patient has been doing well. She continues on the combination inhaler with good adherence. She also has been taking the singular. She feels that this has been helpful. She was asking about taking the antihistamines in the singular and I reassured her that is okay for her to do that. I did request that she takes med different times to avoid too much drowsiness. She did undergo a CT scan of the chest that we discussed. It appears that her pulmonary nodules are stable. She has multiple nodules noted. Her largest nodule 5 mm. The only new finding on the CT scan is that she has small bilateral pleural effusions. On further questioning she has been taking more by mouth. She recently saw her automatic nailing machine operator to told her not to take some much fluids. Therefore she has backed off on her fluid intake. She denies any lower extremity edema this time and has been better since she decrease the amount of fluid intake. If the patient develops any worsening shortness of breath or any other concerning symptoms she is to call for earlier evaluation otherwise will discuss this further in 6 months time. 06/18/2021 the patient is here for a pulmonary follow-up visit. Overall the patient has been feeling well. She continues taking her respiratory medications. She is concerned about the findings of the CT scan demonstrating the bilateral small pleural effusions. Of the time the patient was taking in a lot of fluids. She subsequently after that decrease taking as much. I have reassured the patient that this is likely just related to her volume status at the time. Her exam is completely normal with no diminished breath sounds at the bases and no dullness to percussion. I will have her get an x-ray just to make sure that the effusions have subsided. If there is still some abnormality we can consider an echocardiogram and also consider additional imaging studies. Her pulmonary nodules have been stable social will require an additional CT scan until November 2021 to follow up with her yearly CAT scan to assess her pulmonary nodules at that time. 01/15/2024 the patient is here for pulmonary follow-up visit. Overall the patient has been doing well. She has not had to use Wixela. She does prefer to use her rescue inhaler. She has not had to use the rescue inhaler either. Denies any cough or chest congestion. Denies any respiratory limitations. She did have a CT scan of the chest back in 2021 demonstrating stable pulmonary nodules. She does have some bronchiectatic changes. She is having back pain. It is uncomfortable for her. No radiation. She did see a field artillery senior sergeant. I did recommend she see a pain specialist. Otherwise no further imaging studies from a pulmonary standpoint at this time. Will plan to follow-up in late September. However, if she is doing good she can always personally appointment to the the spring. Also, she is going to hold off on the Wixela. She can use her rescue inhaler. However, she starts needing to use her rescue inhaler more than twice a week then she should be starting the Wixela as well. She has already had vaccinations for the flu RSV and COVID. She will talk to the pharmacist to see if she is up to date with her Prevnar 20. 09/28/2024 the patient is here for pulmonary follow-up visit. Since the well. She has the inhaler. She does continue beneficial. Her breathing has not issue. However significant weight loss. She has lost more than 20 lb in the last 2 months. In addition to that she has lost more than 70 lb in the last year. Her daughter is with her to confirm that. She states that she has had a some diarrhea issues. She does follow-up with GI. In addition to that she was brought actively trying to lose the weight. She feels healthy. Denies any night sweats or fevers. Denies any respiratory complaints. She does have underlying pulmonary nodules that were followed before. Her nodules had been stable for more than 2 years and therefore no additional imaging study warranted. In view of her ongoing weight loss will have her get an x-ray. If her x-ray is abnormal she may need additional imaging studies. For now she is doing good she will follow-up in 8-12 months. If she has any issues prior to that she will call for an earlier assessment. 05/23/2025 the patient is here for a pulmonary follow-up visit. Overall she is doing okay. Breathing cuellar she is doing better. The patient states that she has not had to use her maintenance inhalers in longer. She does have the rescue inhaler she can use as needed but even that she does not use often typically less than 2 times a week. In addition to that major complaint is postnasal drip and typically in the morning having some nasal congestion and cough. Moderate severity. She did try the ipratropium nasal spray but this was not helpful. When she started the ipratropium nasal spray she missed understood and she stopped the fluticasone as well. I did encourage her to restart the fluticasone nasal spray. Will go ahead and order Astelin nasal spray that she can not take along with it. Her nasal passages are very dry. She can also try saline gel nasal spray. She can also try Biotene mouthwash for her mouth that is also very dry. Will plan to follow-up in 4 months. If she has any issues prior to this she will call for an earlier assessment. [facility] Medical History (Updated 05/23/25 @ 23:09 by Bobby Tamez MD) Chronic rhinitis Upper airway cough syndrome Pleural effusion Pulmonary nodules Bronchiectasis Asthma Social History Patient Tobacco Use Status: Former Tobacco user Tobacco use type: Cigarette Years Smoked: 25 years Review of Systems Const Denies night sweats and Reports weight loss ENT Denies change in voice, Denies lip swelling, Denies mouth pain, Reports nasal congestion, Reports nasal discharge and Denies tongue swelling Card Denies chest pain Resp Denies chest congestion and Reports cough GI Denies abdominal pain and Reports diarrhea Musc Denies no additional complaints Neuro Denies Neuro-related abnormal movements Psych Denies no additional complaints Sherif/Lymph Denies easy bleeding and Denies lymphadenopathy Aller/Immun Denies lip swelling and Denies tongue swelling Physical Exam Vital Signs: Last Vital Signs BP 114/50 L 05/23/25 14:10 BMI result Body Mass Index 26.3 Const General: alert Neck Neck: Yes normal visual inspection, Yes full ROM and Yes no lymphadenopathy Chest Chest palpation & inspection: normal inspection of the chest Resp Effort & Inspection: normal respiratory effort Auscultation: clear to auscultation bilaterally Percussion: no dullness to percussion Cardio Rate: regular rate Rhythm: regular rhythm Heart sounds: S1 normal heart sound present and S2 normal heart sound present GI Palpation (GI): Soft to palpation and nontender Auscultation: normal bowel sounds Skin General skin exam: rashes and/or lesions noted Assessment & Plan Assessment & Plan (1) Asthma: Code(s): J45.909 - Unspecified asthma, uncomplicated Category: Medical Qualifiers: Asthma complication type: uncomplicated Asthma persistence: persistent Asthma severity: moderate Qualified Code(s): J45.40 - Moderate persistent asthma, uncomplicated (2) Bronchiectasis: Code(s): J47.9 - Bronchiectasis, uncomplicated Category: Medical Qualifiers: Bronchiectasis type: uncomplicated Qualified Code(s): J47.9 - Bronchiectasis, uncomplicated (3) Pulmonary nodules: Code(s): R91.8 - Other nonspecific abnormal finding of lung field Category: Medical (4) Upper airway cough syndrome: Code(s): R05.8 - Other specified cough Category: Medical (5) Chronic rhinitis: Code(s): J31.0 - Chronic rhinitis Category: Medical Plan restart fluticasone nasal spray strat Azesteline nasal spray stop ipratropium nasal holding Wixela 250 Short-acting beta agonist as needed stop singular CPT with acapella valve CXR if no better Follow-up in 4-5 months Medications: New azelastine administer into each nostril 2 sprays intranasal BID 90 mL 3RF 90 days Changed From fluticasone propionate 50 mcg/actuation 2 sprays intranasal DAILY PRN To fluticasone propionate 50 mcg/actuation 2 sprays intranasal DAILY 16 grams 11RF 30 days Coding Level of Care Code Est Pt Level 4 (84049) Complex EM visit Add On G2211 Diagnoses Moderate persistent asthma without complication J45.40 Asthma complication type: uncomplicated Asthma persistence: persistent Asthma severity: moderate Bronchiectasis without complication J47.9 Bronchiectasis type: uncomplicated Pulmonary nodules R91.8 Upper airway cough syndrome R05.8 Chronic rhinitis J31.0 Time Spent (min) 16
--- OUTSIDE RECORDS SUMMARY | 2025-05-23 14:53 | XMS_ITS | Encounter Summary ---
Author Organization [facility] Address [address] [place] [address] Care Team Providers Care English As A Second Language Teacher Name Role Phone Madyson Givens MD Primary Care Provider [phone] Encounter Details Date Type Department Care Team (Late st Contact Info) Description 01/21/2025 Lab Requisition [facility] [address] [facility] [place] [address] Bonilla Tate MD [address] [facility] [address] [place] [address] Dysuria Social History Tobacco Use [...] mirabilis(A ) PATRICIA 01/22/2025 7:38 AM EDT [facility] Comment: Edited result: Previously reported [...] [facility]/State/ZIP Co de Phone Number [facility] [address] [place] [address], documented in this encounter Visit Diagnoses Diagnosis Dysuria documented in this encounter Care Teams English As A Second Language Teacher Relationship Specialty Start Date End Date Madyson Givens MD PCP - General Internal Medicine 11/29/20 documented as of this encounter
--- OUTSIDE RECORDS SUMMARY | 2025-05-23 14:53 | XMS_ITS | Encounter Summary ---
Author Organization [facility] Address [address] [facility] [address] [place] [address] Phone Care Team Providers Care Agricultural Equipment Sales Engineer Name Role Phone Madyson Givens MD Primary Care Provider [phone] Reason for Visit * Reason Comments Med Refill Encounter Details Date Type Department Care Team (Late Contact Info) Description 06/04/2022 Refill [facility] [address] [place] [address] Star Gore MD [address] [place] [address] Social History Tobacco Use Types Packs/Day [...] Department Care Team (Late Contact Info) Description 09/12/2025 10:40 AM EST Office Visit [facility] [address] [address] Star Gore MD [facility] [address] [address] documented as of this encounter Visit Diagnoses Not on filedocumented in this encounter Care Teams Agricultural Equipment Sales Engineer Relationship Specialty Start Date End Date Madyson Givens MD [address] PCP - General Internal Medicine 11/15/24 documented as of this encounter
--- OUTSIDE RECORDS SUMMARY | 2025-05-23 14:54 | XMS_ITS | Clinical Summary ---
Author Organization [facility] Address [address] [facility] [address] [place] [address] Phone Care Team Providers Care Tax Analyst Name Role Phone Madyson Givens MD Primary Care Provider [phone] Allergies Active Allergy Reactions Criticality Noted Date Comments Levofloxacin Other (See Comments) 11/27/2010 joint pain Pt recently tested for antibiotics all negative per pt Medications carvedilol (COREG) 25 MG tablet Take 25 mg by mouth 2 (two) times a day with meals. 3 Active spironolactone (ALDACTONE) 25 MG tablet Take 25 mg by mouth daily. 3 Active allopurinol (ZYLOPRIM) 300 MG tablet Take 300 mg by mouth daily. 3 Active torsemide (DEMADEX) 20 MG tablet Take 20 mg by mouth 2 (two) times a day (once in the morning and once in the afternoon). 3 Active simvastatin (ZOCOR) 20 MG tablet Take 20 mg by mouth nightly at bedtime. 3 Active omeprazole (PRILOSEC) 20 MG capsule Take 20 mg by mouth daily. 3 Active montelukast (SINGULAIR) 10 mg tablet Take 10 mg by mouth nightly at bedtime. 3 Active fluticasone propion-salmeteroL (WIXELA INHUB) 250-50 mcg/dose DISKUSIndications: as needed Inhale into the lungs. Indications: as needed 2 Active albuterol 90 mcg/actuation inhaler INHALE 2 PUFFS INTO THE LUNGS EVERY 6 HOURS NEEDED FOR SHORTNESS OF BREATH OR WHEEZING 2 Active cetirizine (ZYRTEC) 10 MG tablet as needed. Active fluticasone propionate (FLONASE) 50 mcg/actuation nasal spray 2 sprays by Nasal route daily. 2 Active ascorbic acid, vitamin C, (VITAMIN C) 500 mg ChewIndications:un sure strength Take by mouth daily. Indications: unsure strength Active d-mannose PowdIndications:ca psule Take by mouth. Indications: capsule Active coenzyme Q10 100 mg capsule Take 100 mg by mouth daily. Active MAGNESIUM ORAL Take by mouth. Active mv,catherine,iron,mn/fol ic acid/chol (DLXY-[id number], PABA, ORAL) Take by mouth. Active b complex vitamins capsule Take 1 capsule by mouth daily. Active Lactobacillus acidophilus (PROBIOTIC ORAL) Take by mouth. Active LORazepam (ATIVAN) 0.5 MG tablet 3 Active traMADoL (ULTRAM) 50 mg tabletIndications: Primary osteoarthritis involving multiple joints TAKE 1 TABLET ONCE A DAY NEEDED FOR 30 DAYS 30 tablet 5 4 Active Active Problems Problem Noted Date Diagnosed Date Primary osteoarthritis of both knees 05/14/2023 Assessment & Plan (02/16/2024 2:04 PM EDT): Advanced degenerative arthritis in both knees with no current swelling. Assessment & Plan (09/21/2023 3:41 PM EST): Degenerative osteoarthritis in both knees, fairly advanced with medial joint line pain. She has no effusion or warmth. Injected both knees with 40 mg of triamcinolone. Suggested she can try diclofenac topical gel on her knees for pain. She can also continue with tramadol and Tylenol as needed. She is concerned that she might fall, and so I suggested she use her seated walker to remain seated and scoot around the house when she feels unstable ambulating. Assessment & Plan (05/14/2023 12:57 PM EDT): She has advanced degenerative osteoarthritis in both knees with almost total medial compartment collapse. There is minimal crepitus and no effusion in either knee. Injected both knees with 40 mg of Depo-Medrol mixed with lidocaine. Primary osteoarthritis involving multiple joints 05/14/2023 Assessment & Plan (02/16/2024 2:03 PM EDT): To arthritis in multiple joints most bothersome in the knees and lower back. She can continue with Tylenol 650 mg and tramadol as needed. Gave her an intramuscular injection of triamcinolone which relieves her stiffness and pain for several months. Assessment & Plan (09/21/2023 3:41 PM EST): Osteoarthritis in multiple joints with no swelling. Continue with Tylenol or tramadol as needed. Assessment & Plan (05/14/2023 1:00 PM EDT): OA in multiple joints as well as spinal stenosis in the spine. Advised as needed Tylenol for pain. Bacteriuria 03/18/2023 Assessment & Plan (03/18/2023 7:00 PM EDT): I had a long discussion with Carine [...] and are willing to try my approach. Incontinence in female 03/18/2023 Family History Medical History Relation Comments No Known Problems Daughter Stroke Father Cancer Mother No Known Problems Son Relation Status Comments Daughter Alive Father Mother Son Alive Social History Tobacco Use Types Packs/Day Years Used Date Smoking Tobacco: Former Cigarettes Smokeless Tobacco: Never Tobacco Cessation:Counseling Given: Not Answered Alcohol Use Standard Drinks/Week Comments Not Currently 0 (1 standard drink = 0.6 oz pur e alcohol) Education Answer Date Recorded Are you interested in more education? Not on thomas e 03/09/2023 Are you concerned about learning? Not on file 03/09/2023 No 03/09/2023 No 03/09/2023 Digital Access Answer Date Recorded No 03/26/2023 No 03/26/2023 Reliable internet access at home? Not on file 03/26/2023 Device with a working camera? Not on file Comments Unknown Sex and Gender Information Value Date Recorded Sex Assigned at Not on file Legal Sex Female 6:35 PM EST Gender Identity Not on file Sexual Orientation Not on file Last Filed Vital Signs Vital Sign Reading Time Taken Comments Blood Pressure 126/52 01/06/2024 1:19 PM EST Pulse 72 01/06/2024 1:19 PM EST Temperature 36.4 C (97.6 F) 03/12/2011 12:00 AM EDT Respiratory Rate 18 03/12/2011 12:00 AM EDT O2 Sat 99% Oxygen Saturation 96% 01/06/2024 1:19 PM EST Inhaled Oxygen Concentration - - Weight 78.9 kg (174 lb) 01/06/2024 1:19 PM EST Height 163.8 cm (5' 4.5 ) 01/06/2024 1:19 PM EST Body Mass Index 29.41 01/06/2024 1:19 PM EST Plan of Treatment Health Maintenance Due Date Last Done Comments CREATININE LEVEL 1936 POTASSIUM LEVEL 1936 DEPRESSION SCREENING 1948 OSTEOPOROSIS SCREENING INITIAL (ONE-TIME) 2001 PNEUMOCOCCAL VACCINES (50+ years) (2 of 2 - PPSV23) 08/21/2016 08/21/2015 ZOSTER VACCINES (2 of 2) 01/26/2019 12/01/2018 COVID-19 VACCINE ( season) 2024 08/25/2023, 08/01/2022, 02/27/2022, Additional history exists Adult Td,Tdap Booster 06/09/2028 06/09/2018 RSV VACCINE Completed 08/14/2023 HEPATITIS A VACCINES Aged Out No long er eligible based on patient's age to complete this topic HIB VACCINES Aged Out No longer eligi ble based on patient's age to complete this topic MENINGOCOCCAL VACCINES (ACWY) Aged Out No longer eligible based on patient's age to complete this topic MENINGOCOCCAL VACCINES (B) Aged Out N o longer eligible based on patient's age to complete this topic Medical Devices Not on file Insurance MEDICARE PART A & B [facility] MEDEX SUPPLEMENT MEDICARE PART A & B [employer] SUPPLEMENT MEDICARE PART A & B [employer] SUPPLEMENT MEDICARE PART A & B [employer] MEDEX SUPPLEMENT MEDICARE PART A & B [employer] MEDEX SUPPLEMENT MEDICARE PART A & B [employer] MEDEX SUPPLEMENT MEDICARE PART A & B [employer] MEDEX SUPPLEMENT MEDICARE PART A & B [employer] [place] [address] MEDICARE PART A & B [employer] MEDEX SUPPLEMENT Care Teams Tax Analyst Relationship Specialty Start Date End Date Madyson Givens MD [address] [place] [address] [email or web address] PCP - General Internal Medicine 10/24/22 Additional Source Comments The information contained in this document represents components of the legal health record. It is not the complete legal health record.[facility]
--- OUTSIDE RECORDS SUMMARY | 2025-05-23 14:54 | XMS_ITS ---
Author Name [facility] Organization Unknown History of Medication Use Medication Directions Dispensed Refills Start Date End Date Stat us diphenoxylate-atropi ne 2.5 mg-0.025 mg tablet TAKE 1 TABLET BY MOUTH TWICE DAILY NEEDED FOR DIARRHEA 09/22/2024 completed Gemtesa 75 mg tablet 09/22/2024 completed Lidocaine Pain Relief 4 % topical patch APPLY TOPICALLY TO THE AFFECTED AREA DAILY FOR UP TO 12 HOURS. 12 HOURS ON AND 12 HOURS OFF 09/22/2024 completed meloxicam 15 mg tablet 09/22/2024 completed albuterol sulfate HFA 90 mcg/actuation aerosol inhaler prn active carvedilol 25 mg tablet active simvastatin 20 mg tablet active spironolactone 25 mg tablet active torsemide 20 mg tablet active trazodone 100 mg tablet active Wixela Inhub 250 mcg-50 mcg/dose powder for inhalation Inhale 1 puff twice a day by inhalation route. active Problems Problem Status Onset Date Problem Type Date of Resoluti on Source Trochanteric bursitis of right hip active 2024-09-22 ProblemAct [facility] Low back pain active 2024-09-22 ProblemAct [facility] Encounters Encounter Type Encounter Reason Primary Diagnosis Location Date Ambulatory [facility] 03/06/2025 Ambulatory [facility] 09/23/2024 Ambulatory [facility] 09/22/2024 Ambulatory [facility] 09/22/2024 Ambulatory [facility] 09/22/2024 Ambulatory [facility] 09/22/2024 Ambulatory [facility] 09/22/2024 Ambulatory [facility] [place] 09/03/2024 Ambulatory [facility] [place] 09/03/2024
--- OUTSIDE RECORDS SUMMARY | 2025-05-23 14:54 | XMS_ITS | Patient Health Record ---
Author Organization [facility] Address [address] [facility] [address] [place] [address] Care Team Providers Care Javascript Programmer Name Role Phone Madyson Givens MD Primary Care Provider UnavailKelle Chavez Unavailable [phone] Fabricio Duggan Unavailable [phone] Allergies No Known Allergies Reason For Referral No Information Medications Medication SIG (Take, Route, Frequency, Duration) Notes Start Date End Date Status traZODone HCl 100 MG 1 tablet at bedtime Orally Once a day Active traMADol HCl 50 MG 1 tablet as needed Orally Once a day Active Torsemide 20 MG 1 tablet Orally Once a day Active Spironolactone 25 MG 1 tablet Orally Active Singulair 10 MG 1 tablet Orally Once a day Active Simvastatin 20 MG 1 tablet in the evening Orally Once a day Active Omeprazole 20 MG 1 capsule 1/2 to 1 hour before morning meal Orally Once a day Active Meloxicam 15 MG 1 tablet Orally Once a day Active Lomotil 2.5-0.025 MG 1 tablet as needed Orally Four times a day Active Fluticasone Propionate 50 MCG/ACT 1 spray in each nostril Nasally Twice a day Active Carvedilol 25 MG 1 tablet with food Orally Twice a day Active Allopurinol 300 MG 1 tablet Orally Once a day Active Silvadene 1 % 1 application Externally Once a day Not-Taking Doxycycline Hyclate 100 MG 1 capsule Ora lly Once a day Not-Taking Bactrim DS 800-160 MG 1 tablet Orally Th ree times a Week Not-Taking Problems Problem Type SNOMED Code ICD Code Onset Dates Problem Status W/U Status Risk Notes Problem Essential hypertension (95901884) Essential (primary) hypertension (I10) Active confirmed Problem Chronic non-pressure ulcer of calf extending to fat level (3012698010834398 1) 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) Active confirmed Problem History of falling (Z91.81) Active confirmed Problem Venous insufficiency of leg (disorder) (402550172) Venous insufficiency (I87.2) Active confirmed Problem Urinary incontinence (345576812) Urinary incontinence in female (R32) Active confirmed Problem Hyperlipidemia (01915700) Hyperlipidemia (E78.5) Active confirmed Vital Signs Heart Rate 70 /min 01/24/2025 Temperature 97.0 degrees Fahrenheit 01/24/2025 Respiratory Rate 18 /min 01/24/2025 Blood pressure diastolic 74 mm Hg 01/24/2025 Height-cm 162.56 cm 01/24/2025 Oximetry 96 % 01/24/2025 Weight-kg 68.04 kg 01/24/2025 Height 64 in 01/24/2025 Blood pressure systolic 130 mm Hg 01/24/2025 Weight 150 lbs 01/24/2025 BMI 25.74 kg/m2 01/24/2025 Encounters Encounter Location Date Provider Diagnosis [facility] [address] [address] 12/27/2024 Kelle Hyatt Venous insufficiency I87.2 ; Non-pressure chronic ulcer of other part of right lower leg with fat layer exposed L97.812 and History of falling Z91.81 [place] [address] [address] 12/30/2024 Anzhela Savonina Venous insufficiency I87.2 ; Non-pressure chronic ulcer of other part of right lower leg with fat layer exposed L97.812 and History of falling Z91.81 [facility] [address] [address] 01/03/2025 Kelle [place] Venous insufficiency I87.2 ; Non-pressure chronic ulcer of other part of right lower leg with fat layer exposed L97.812 and History of falling Z91.81 [facility] [address] [address] 01/10/2025 Kelle [place] Venous insufficiency I87.2 ; Non-pressure chronic ulcer of other part of right lower leg with fat layer exposed L97.812 and History of falling Z91.81 [facility] [address] [address] 01/17/2025 Kelle [place] Venous insufficiency I87.2 ; Non-pressure chronic ulcer of other part of right lower leg with fat layer exposed L97.812 and History of falling Z91.81 [facility] [address] [address] 01/24/2025 Kelle [place] Venous insufficiency I87.2 ; Non-pressure chronic ulcer of other part of right lower leg with fat layer exposed L97.812 and History of falling Z91.81 [facility] [address] [address] 12/22/2024 Kelle [facility] [address] [place] [address] 12/27/2024 [facility] [address] [place] [address] 12/27/2024 [facility] [address] [place] [address] 12/28/2024 Kellepedro pablo Priceett Assessments Encounter Date Diagnosis (ICD Code) Assessment Notes Treatment Notes Treatment Clinical Notes Section Notes 12/27/2024 Non-pressure chronic ulcer of other part of right lower leg with fat layer exposed (ICD-10 - L97.812) On exam, alert & cooperative with care. We removed the dressing to her RLE and examined the wound site. She has new pink scar tissue surroundig the wounds indicating the wounds are improving, dark pink epithelial tissue where the initial laceration was sustained and has resolved. The two ulcerations to her RLE have mixed granular tissue and slough, callused tissue to the periwounds. We discussed the indication for debridement and she was agreeable. I performed debridement to both ulcerations to remove and break up the devitalized tissue and remove the calluses and she tolerated the procedures well after lidocaine. I cleaned the wounds with wound cleanser and nursing applied zinc to periwounds, xeroform f.b DCD. We discussed performing ABIs at her next visit. She would like VNA services to assist with dressing changes on Friday and Friday, so we will set that up but her daughter who is present for exam is also agreeable to helping with dressing changes if they are not able to start immediately. Elevation discussed at length. We will consider vascular referral if needed or wound healing becomes stagnant. Recommended she get set back up with physical therapy. She will return in one week for a follow up appointment, calling in the interim with any questions or concerns. Daughter, patient and nursing agree with plan of care and her questions were answered to her satisfaction. I Kelle FERRER, [facility]- examined, evaluated and treated the patient. Dr. Michael Man was available for any question or concerns that I may have had. 12/27/2024 Venous insufficiency (ICD-10 - I87.2) 12/30/2024 Venous insufficiency (ICD-10 - I87.2) 01/03/2025 Venous insufficiency (ICD-10 - I87.2) 01/10/2025 Venous insufficiency (ICD-10 - I87.2) 01/17/2025 Venous insufficiency (ICD-10 - I87.2) 01/24/2025 Venous insufficiency (ICD-10 - I87.2) 01/24/2025 Non-pressure chronic ulcer of other part of right lower leg with fat layer exposed (ICD-10 - L97.812) On exam, alert & cooperative with care. We removed the dressing to her RLE and examined the wound sites. Her proximal and distal RLE wound sites are both nicely resolved with epithelial tissue. Elevation encouraged. She does not require a cover dressing or follow up at this time, but will call with new or reopened areas. Daughter, patient and nursing agree with plan of care and her questions were answered to her satisfaction. I Kelle Hyatt MSN, [facility], evaluated and treated the patient. Dr. Michael Man was available for any question or concerns that I may have had. 01/17/2025 Non-pressure chronic ulcer of other part of right lower leg with fat layer exposed (ICD-10 - L97.812) On exam, alert & cooperative with care. We removed the dressing to her RLE and examined the wound sites. Her proximal RLE wound site is resolved and distal continues to improve. We discussed the indication for debridement and she was agreeable. I performed debridement to remove the devitalized tissue and biofilm and remove the callus and she tolerated the procedure well after lidocaine. I cleaned the wound with wound cleanser and nursing applied zinc to periwounds, xeroform f.b DCD. Lastly, tubi F was applied toes to below her knee. VNA will continue performing dressing changes on Friday and Friday. Tubi on in AM off @ HS. Elevation discussed at length. She will return in one week for a follow up appointment, calling in the interim with any questions or concerns. Daughter, patient and nursing agree with plan of care and her questions were answered to her satisfaction. I Kelle Hyatt MSN, AGPCNP-BC examined, evaluated and treated the patient. Dr. Michael Man was available for any question or concerns that I may have had. 01/10/2025 Non-pressure chronic ulcer of other part of right lower leg with fat layer exposed (ICD-10 - L97.812) On exam, alert & cooperative with care. We removed the dressing to her RLE and examined the wound sites. Both wounds are improving but have slough and biofilm to the wound beds. We discussed the indication for debridement and she was agreeable. I performed debridement to both ulcerations to remove and break up the devitalized tissue and remove the calluses and she tolerated the procedures well after lidocaine. I cleaned the wounds with wound cleanser and nursing applied zinc to periwounds, xeroform f.b DCD. Lastly, tubi F was applied toes to below her knee. VNA will continue performing dressing changes on Friday and Friday. Tubi on in AM off @ HS. Elevation discussed at length. She will return in one week for a follow up appointment, calling in the interim with any questions or concerns. Daughter, patient and nursing agree with plan of care and her questions were answered to her satisfaction. I Kelle Hyatt MSN, AGNP-BC examined, evaluated and treated the patient. Dr. Michael Man was available for any question or concerns that I may have had. 01/03/2025 Non-pressure chronic ulcer of other part of right lower leg with fat layer exposed (ICD-10 - L97.812) On exam, alert & cooperative with care. We removed the dressing to her RLE and examined the wound sites. Both wounds are improving but have slough and HG tissue. We discussed the indication for debridement and she was agreeable. I performed debridement to both ulcerations to remove and break up the devitalized tissue and remove the calluses and she tolerated the procedures well after lidocaine. I cleaned the wounds with wound cleanser, applied silver nitrate to the superior ulcer in hopes to compress the hG tissue and nursing applied zinc to periwounds, xeroform f.b DCD. Lastly, tubi F was applied toes to below her knee. VNA will continue performing dressing changes on Friday and Friday. Tubi on in AM off @ HS. Elevation discussed at length. She will return in one week for a follow up appointment, calling in the interim with any questions or concerns. Daughter, patient and nursing agree with plan of care and her questions were answered to her satisfaction. I [facility], [facility], evaluated and treated the patient. Dr. Michael Man was available for any question or concerns that I may have had. 12/30/2024 Non-pressure chronic ulcer of other part of right lower leg with fat layer exposed (ICD-10 - L97.812) 12/27/2024 History of falling (ICD-10 - Z91.81) 12/30/2024 History of falling (ICD-10 - Z91.81) 01/03/2025 History of falling (ICD-10 - Z91.81) 01/10/2025 History of falling (ICD-10 - Z91.81) 01/17/2025 History of falling (ICD-10 - Z91.81) 01/24/2025 History of falling (ICD-10 - Z91.81) 12/30/2024 Other 12/30 and reflected a R SAROJ of 0.96 and TIB of 0.33 and L SAROJ of 0.84 and TBI of 0.49 Plan Of Treatment No Information Insurance Providers Payer Name Payer Address Payer Phone Subscriber Number Group Number Insured Name Patient Relationship to Insured Coverage Start Date Coverage End Date Medicare [address] [place], [place] [id number] [phone] [id number] Carine Moe Self - patient is the insured 1 [facility] [address] [place], [place] [phone] [id number] Carine Moe Self - patient is the insured 3 [employer] ([employer]) [address] [place], [place] [id number] Carine Moe Self - patient is the insured 4 Medical (General) History Medical History History ICD Code Hypercalcemia E83.52 Hyperlipidemia E78.5 Essential (primary) hypertension I10 Other acute kidney failure N17.8 Urinary incontinence in female R32 UTI (urinary tract infection) N39.0 Venous insufficiency I87.2 Surgical History Surgery Date(Month/Year) Hysterectomy with bilateral oophorectomy
== END 2025-05-23 14:38 | disposition home or self-care (01) ==
LOC: HO.HPS 14:03
PROVIDERS: PCP Internal Medicine; Visit Provider Hospitalist
DX: J45.40 Moderate persistent asthma, uncomplicated (principal); J47.9 Bronchiectasis, uncomplicated; R91.8 Other nonspecific abnormal finding of lung field; R05.8 Other specified cough; J31.0 Chronic rhinitis
CPT/HCPCS: 99214; G2211

== ENCOUNTER → 2025-05-23 14:02 | Outpatient (BNVA) | payer MEDICARE, SELFPAY | PROVIDERS: PCP Internal Medicine; Visit Provider Hospitalist | DX: J45.40 Moderate persistent asthma, uncomplicated (principal); R91.8 Other nonspecific abnormal finding of lung field; J47.9 Bronchiectasis, uncomplicated; J31.0 Chronic rhinitis; R05.8 Other specified cough | CPT/HCPCS: 99212 ==

== ENCOUNTER 2025-07-19 10:34 | Outpatient (AMB) | payer MEDICARE, SELFPAY ==
--- OUTSIDE RECORDS SUMMARY | 2025-07-12 14:00 | XMS_ITS | Encounter Summary ---
Author Organization [facility] Address [address] [place] [address] Care Team Providers Care Serology Technician Name Role Phone Madyson Givens MD Primary Care Provider [phone] Reason for Visit * Reason Comments Follow-up Encounter Details Date Type Department Care Team (Late st Contact Info) Description 07/12/2025 2:00 PM EDT Office Visit [facility] [address] [place] [address] Kym Delgadillo MD [address] [place] [address] [address] [place] [address] Shortness of breath (Primary Dx); Edema of both legs; Pure hypercholesterolemia; Primary hypertension; CKD (chronic kidney disease) stage 4, GFR 15-29 ml/min (CMS/HCC V24, CMS/HCC V28) Social History Tobacco Use Types Packs/Day Years [...] on file documented as of this encounter Last Filed Vital Signs Vital Sign Reading Time Taken Comments Blood Pressure 132/50 07/12/2025 2:09 PM EDT Pulse 65 07/12/2025 2:09 PM EDT Temperature - - Respiratory Rate - - Oxygen Saturation 98% 07/12/2025 2:09 PM EDT Inhaled Oxygen Concentration - - Weight 69.2 kg (152 lb 9.6 oz) 07/12/2025 2:09 P M EDT Height 162.6 cm (5' 4 ) 07/12/2025 2:09 PM EDT Body Mass Index 26.19 07/12/2025 2:09 PM EDT documented in this encounter Progress Notes * Kym Delgadillo MD - 07/12/2025 2:00 PM EDTAssociated Problem(s): Shortness of breath The patient is not reporting significant breathlessness beyond what is anticipated for her significant level of deconditioning given her sedentary lifestyle. Activities are rendered more difficult due to her significant arthritis. There is no evidence of coronary insufficiency or congestive heart fa ilure. Orders: ECG 12 lead * Kym Delgadillo MD - 07/12/2025 2:00 PM EDTAssociated Problem(s): Edema of both legs The patient has longstanding venous insufficiency with an element of lymphedema. She actually has minimal swelling at this time. She takes low-dose torsemide which has been well-tolerated. Renal dysfunction is closely followed by Dr. Gore. Orders: ECG 12 lead * Kym Delgadillo MD - 07/12/2025 2:00 PM EDTAssociated Problem(s): Pure hypercholesterolemia The patient takes low-dose simvastatin. She does not have any evidence of coronary, cerebrovascularor peripheral vascular insufficiency. Orders: ECG 12 lead * Kym Delgadillo MD - 07/12/2025 2:00 PM EDTAssociated Problem(s): CKD (chronic kidney disease) stage 4, GFR 15-29 ml/min (CMS/[facility] V24, [facility]) Renal dysfunction is closely followed by Dr. Gore. Orders: ECG 12 lead * Kym Delgadillo MD - 07/12/2025 2:00 PM EDT PCP: Madyson Givens MD HPI: Carine Moe is a 89 y.o. old female with a history of longstanding systemic hypertension as well as intermittent orthostatic hypotension, dyslipidemia, and COPD in the setting of remote tobacco use. The patient has had evidence of borderline mitral valve prolapse with mild mitral regurgitationand has chronic kidney disease as well as chronic venous insufficiency. 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 The patient was evaluated for episodic dyspnea and a brief episode of jaw discomfort in 2018. Echocardiography demonstrated preserved left ventricular systolic function and no hemodynamically significant valvular disease. Subsequent nuclear stress testing was negative for any fixed or reversible perfusion defects. The patient was last seen in the office one year ago. At that time she reported that her dyspnea had improved and that her edema had responded favorably to torsemide. She now presents for annual follow- up evaluation. Carine continues to be stable. She has had mild peripheral edema. Unfortunately she injured her right lower leg and suffered from an infected wound. This has improved with appropriate treatment. She continues to experience diffuse joint pain from arthritis. She remains sedentary but is not experiencing any symptoms to suggest coronary insufficiency, congestive heart failure or symptomatic dysrhythmia. She is in good spirits and has excellent support from her daughter who lives quite nearby. ACTIVE MEDICATIONS: Outpatient Medications Marked as Taking for the 07/12/25 encounter (Office Visit) with Kym Delgadillo MD Medication Sig Dispense Refill allopurinoL (ZYLOPRIM) 300 mg tablet Take 1 tablet (300 mg total) by mouth 1 (one) time each day. azelastine (ASTELIN) 137 mcg (0.1 %) nasal spray Administer 1 spray into each nostril 2 (two) timesa day. Use in each nostril as directed carvediloL (COREG) 25 mg tablet Take 1 tablet (25 mg total) by mouth 2 (two) times a day with meals. FLUTICASONE PROPIONATE NASL Administer into affected nostril(s). fluticasone-salmeterol (ADVAIR DISKUS) 250-50 mcg/dose diskus inhaler Inhale 1 puff by mouth 2 (two) times a day. Rinse mouth with water after use to reduce aftertaste and incidence of candidiasis. Do not swallow. montelukast (SINGULAIR) 10 mg tablet Take 1 tablet (10 mg total) by mouth at bedtime. omeprazole (PriLOSEC) [address] capsule Take 1 capsule (20 mg total) by mouth 1 (one) time each day.Do not crush or chew. simvastatin (ZOCOR) 20 mg tablet Take 1 tablet (20 mg total) by mouth at bedtime. spironolactone (ALDACTONE) 25 mg tablet Take 1 tablet (25 mg total) by mouth 1 (one) time each day. torsemide (DEMADEX) 20 mg tablet Take 1 tablet (20 mg total) by mouth 1 (one) time each day. traMADoL (ULTRAM) 50 mg tablet 2 tablets (100 mg total) 1 (one) time each day if needed for severe pain. Max Daily Amount: 100 mg traZODone (DESYREL) 100 mg tablet Take 1 tablet (100 mg total) by mouth at bedtime. PAST MEDICAL HISTORY: Patient Active Problem List Diagnosis Date Noted Date Diagnosed Shortness of breath 07/11/2025 Pure hypercholesterolemia 07/11/2025 CKD (chronic kidney disease) stage 4, GFR 15-29 ml/min ([facility] V24, [facility] V28) 07/11/2025 Edema of both legs 07/11/2025 Resolved Problems No resolved problems to display. ALLERGIES: No Known Allergies FAMILY HISTORY: No family history on file. SOCIAL HISTORY: Social History Tobacco Use Smoking status: Former Current packs/day: 0.00 Types: Cigarettes Quit date: 11/03/1999 Years since quittin.7 Smokeless tobacco: Never Substance Use Topics Alcohol use: No REVIEW OF SYSTEMS: ROS POSITIVE for edema, back pain, loss of balance, rare falls PHYSICAL EXAM: Vitals: 07/12/25 1409 BP: 132/50 BP Location: Left arm Patient Position: Sitting BP Cuff Size: Large adult Pulse: 65 SpO2: 98% Weight: 69.2 kg (152 lb 9.6 oz) Height: 1.626 m (64 ) APPEARANCE: Alert and in no acute distress, well-developed, well-nourished. EYES: PERRL, conjunctiva and sclera normal EARS: External ears normal. NOSE/SINUS: Nares normal. Septum midline. Mucosa normal. No drainage or sinus tenderness. MOUTH/THROAT: no erythema or exudates NECK: JVP less then 8cm H2O, No bruits., Neck supple, no adenopathy or mass HEART: RRR with normal S1 and S2, no murmurs, no gallops, no JVD appreciated CHEST: non-tender LUNG: clear to auscultation ABDOMEN: Bowel sounds normoactive, no bruits, soft, non-tender, without organomegaly or palpable masses EXTREMITIES: Extremities warm and well perfused without clubbing, cyanosis, or edema NEURO: Awake, alert and oriented x 3 and Normal gait SKIN: Skin color, texture, turgor normal. No rashes or lesions. EKG: Normal sinus rhythm with premature atrial complexes and minor nonspecific T wave flattening. No significant change. TESTING: Laboratory testing reviewed. ASSESSMENT/PLAN: Assessment & Plan Shortness of breath The patient is not reporting significant breathlessness beyond what is anticipated for her significant level of deconditioning given her sedentary lifestyle. Activities are rendered more difficult due to her significant arthritis. There is no evidence of coronary insufficiency or congestive heart fa ilure. Orders: ECG 12 lead Edema of both legs The patient has longstanding venous insufficiency with an element of lymphedema. She actually has minimal swelling at this time. She takes low-dose torsemide which has been well-tolerated. Renal dysfunction is closely followed by Dr. Gore. Orders: ECG 12 lead Pure hypercholesterolemia The patient takes low-dose simvastatin. She does not have any evidence of coronary, cerebrovascularor peripheral vascular insufficiency. Orders: ECG 12 lead Primary hypertension Blood pressures are well-controlled on her present medical regimen. No changes are recommended. Orders: ECG 12 lead CKD (chronic kidney disease) stage 4, GFR 15-29 ml/min ([facility] V24, CMS/HCC V28) Renal dysfunction is closely followed by Dr. Gore. Orders: ECG 12 lead I have been seeing this delightful woman over the course of many years. She has had systemic hypertension as well as peripheral edema in the setting of venous insufficiency and CKD. She has not had evidence of clinical coronary artery disease, congestive heart failure or significant dysrhythmia. She understands that I will soon be retiring. She wondered if she should try to see one of my partnersthat she asked directly whether she even needed continued involvement with a emery grinder. I suggested that her present team of internal medicine and subspecialty care providers would be appropriate. If cardiac issues arise down the road I am certain that one of my colleagues at [facility] would be happy to help. documented in this encounter Plan of Treatment Not on file documented as of this encounter Procedures Procedure Name Priority Date/Time Associated Diagnosis Comments ECG 12-LEAD Routine 07/12/2025 2:25 PM EDT Shortness of breath Edema of both legs Pure hypercholesterolemia Primary hypertension CKD (chronic kidney disease) stage 4, GFR 15-29 ml/min (CMS/HCC V24, CMS/HCC V28) documented in this encounter Results * ECG 12 lead (07/12/2025 2:25 PM EDT) Ventricular Rate ECG 65 BPM GEMUSE Atrial Rate 65 BPM GEMUSE P-R Interval 160 ms GEMUSE QRS Duration 86 ms GEMUSE Q-T Interval 364 ms GEMUSE QTc 378 ms GEMUSE P Wave [place] 76 degrees GEMUSE R [place] 60 degrees GEMUSE T [place] 66 degrees GEMUSE ECG Interpretation Sinus rhythm with Premature atrial complexes Nonspecific T wave abnormality Abnormal ECG No previous ECGs available Confirmed by MD JOANNA, KYM ([id number]) on 07/12/2025 3:25:37 PM GEMUSE 07/12/2025 2:25 PM EDT 07/12/2025 3:25 PM EDT us Kym Delgadillo MD ECG ORDERABLES Final Result GEMUSE documented in this encounter Visit Diagnoses Diagnosis Shortness of breath- Primary Edema of both legs Edema Pure hypercholesterolemia Primary hypertension Unspecified essential hypertension CKD (chronic kidney disease) stage 4, GFR 15-29 ml/min (CMS/HCC V24, CMS/HCC V28) Chronic kidney disease, Stage IV (severe) documented in this encounter Historical Medications * This list may reflect changes made after this encounter. psyllium (METAMUCIL) powder Take 1 packet by mouth 1 (one) time each day. acetaminophen (TYLENOL) 500 mg tablet Take 1 tablet (500 mg total) by mouth 2 (two) times a day. polyethylene glycol (MIRALAX) 17 gram packet Take 17 g by mouth 1 (one) time each day if needed for constipation. MAGNESIUM ORAL Take 400 mg by mouth 1 (one) time each day. cholecalciferol (Vitamin D3) 50 mcg (2,000 unit) capsule Take 1 capsule (2,000 Units total) by mouth 1 (one) time each day. D-MANNOSE ORAL Take by mouth 1 (one) time each day. b complex vitamins capsule Take 1 capsule by mouth 1 (one) time each day. azelastine (ASTELIN) 137 mcg (0.1 %) nasal spray Administer 1 spray into each nostril 2 (two) times a day. Use in each nostril as directed fluticasone-salm eterol (ADVAIR DISKUS) 250-50 mcg/dose diskus inhaler Inhale 1 puff by mouth 2 (two) times a day. Rinse mouth with water after use to reduce aftertaste and incidence of candidiasis. Do not swallow. traZODone (DESYREL) 100 mg tablet Take 1 tablet (100 mg total) by mouth at bedtime. traMADoL (ULTRAM) 50 mg tablet 2 tablets (100 mg total) 1 (one) time each day if needed for severe pain. Max Daily Amount: 100 mg torsemide (DEMADEX) 20 mg tablet Take 1 tablet (20 mg total) by mouth 1 (one) time each day. spironolactone (ALDACTONE) 25 mg tablet Take 1 tablet (25 mg total) by mouth 1 (one) time each day. simvastatin (ZOCOR) 20 mg tablet Take 1 tablet (20 mg total) by mouth at bedtime. omeprazole (PriLOSEC) [address] capsule Take 1 capsule (20 mg total) by mouth 1 (one) time each day. Do not crush or chew. montelukast (SINGULAIR) 10 mg tablet Take 1 tablet (10 mg total) by mouth at bedtime. FLUTICASONE PROPIONATE NASL Administer into affected nostril(s). carvediloL (COREG) 25 mg tablet Take 1 tablet (25 mg total) by mouth 2 (two) times a day with meals. allopurinoL (ZYLOPRIM) 300 mg tablet Take 1 tablet (300 mg total) by mouth 1 (one) time each day. added in this encounter Care Teams Serology Technician Relationship Specialty Start Date End Date Madyson Givens MD [address] [place] [address] PCP - General Internal Medicine 07/12/25 documented as of this encounter
[2025-07-19 10:43] VITALS: BP 132/70; PULSE 66; O2SAT 99; BMI 26.7
--- NOTE | 2025-07-19 10:43 | A.OFFVIS_ITS ---
Vital Signs 07/19/25 10:43 Height 5 ft 4.5 in Weight 157 lb 13.616 oz BMI 26.7 BP 132/70 Blood Pressure Location Rt brachial Position Sitting Pulse 66 Pulse Source Pulse Oximeter Pulse Oximetry (%) 99 Oxygen Delivery Method Room Air Intake Visit Reasons: 3 Months Intake Note: Patient is here for bilateral knees cortisone injections. Allergies No Known Allergies Allergy (Verified 05/23/25 14:14) HPI HPI 3 Months: Details: In the last 3 weeks she has been experiencing hand pain. She has been rubbing her hands. No self medication. Thumb and right 3rd and 4th fingers have been triggering in the last week. She has to manually extend her fingers. Left knee is creaking and she has noticed increased pain in the last week. She had home physical therapy that worked on her back. She was unable to add physical therapy for her elbow. Pain is not relieved with elbow support band. [facility] Medical History (Updated 07/19/25 @ 12:41 by Stan Villa MD) Chronic rhinitis Upper airway cough syndrome Pleural effusion Pulmonary nodules Bronchiectasis Asthma Social History Patient Tobacco Use Status: Former Tobacco user Tobacco use type: Cigarette Years Smoked: 25 years Physical Exam Vital Signs: Last Vital Signs Pulse 66 07/19/25 10:43 BP 132/70 07/19/25 10:43 Pulse Ox 99 07/19/25 10:43 Oxygen Delivery Method Room Air 07/19/25 10:43 BMI result Body Mass Index 26.7 Const Other: General: Comfortable Skin: Bruising along her knees and lower extremities. MSK: Tender to palpate along bilateral joint lines of knees. Knee flexion is 120 degrees bilateral. No tenderness along elbow. Tender right CMC with squaring present. [place] nodes present with subluxation of a few DIPJ knees. She has tender right PIP. Triggering of right thumb observed. No nodular tenderness of palmar aspect of MCPs. Office Procedures AMB Joint Injection/Aspiration Joint Injection/Aspiration Details: Bilateral knee joints Prep: site was prepped using aseptic technique Injected into each joint: 40 mg of, Kenalog, with 1 mL of and 1% plain lidocaine Procedure: Informed verbal consent was obtained. The patient tolerated the procedure well. Postprocedure protocol was discussed with patient. Coding 82761 - Bilateral Large Joint Procedure code (CPT) selection complete AMB Joint Injection/Aspiration Coding 69936 - Bilateral Large Joint Procedure code (CPT) selection complete Office Meds lidocaine (PF) 10 mg/mL (1 %) injection solution Performing Provider: Stan Villa MD Performing Location: [facility] Administered by: Robbie Albarran RN on 07/19/25 11:21 Dose Route Admin Location Dispensed Lot Number Expiration Date ND Podiatric Technician 1 mL Infiltration 2 mL [id number] 01/31/27 02500-319-81 SHEEBA NIUS KABI Total Dispensed Waste 2 mL 50 % Kenalog 40 mg/mL suspension for injection Performing Provider: Stan Villa MD Performing Location: [facility] Administered by: Robbie Albarran RN on 07/19/25 11:21 Dose Route Admin Location Dispensed Lot Number Expiration Date ND Podiatric Technician 40 mg intra-articular 1 mL [id number] 05/02/27 [address]-9 A [employer] Total Dispensed Waste 1 mL 0 % lidocaine (PF) 10 mg/mL (1 %) injection solution Performing Provider: Stan Villa MD Performing Location: [facility] Administered by: Robbie Albarran RN on 07/19/25 11:22 Dose Route Admin Location Dispensed Lot Number Expiration Date ND Podiatric Technician 1 mL Infiltration 2 mL [id number] 01/31/27 75408-498-82 SHEEBA NIUS KAZetera Total Dispensed Waste 2 mL 50 % Kenalog 40 mg/mL suspension for injection Performing Provider: Stan Villa MD Performing Location: [facility] Administered by: Robbie Albarran RN on 07/19/25 11:22 Dose Route Admin Location Dispensed Lot Number Expiration Date ND Podiatric Technician 40 mg intra-articular 1 mL [id number] 05/02/27 [address]-7 A [employer] Total Dispensed Waste 1 mL 0 % Assessment & Plan Assessment & Plan (1) Medial epicondylitis, left elbow: Comment: Suspected. Pain is uncontrolled. We discussed conservative management. Code(s): M77.02 - Medial epicondylitis, left elbow Category: Medical Plan: Continue to wear Elbow support band Try diclofenac gel 1% applied to affected area q.i.d. or lidocaine topical OTC PT ordered. SHe will try to arrange PT at home with her insurance. Return to clinic in 3 months (2) Lumbar spondylosis: Comment: On L-spine x-ray January 2025. Recently completed home PT. Code(s): M47.816 - Spondylosis without myelopathy or radiculopathy, lumbar region Category: Medical Plan: Continue home exercise program learned from PT Return to clinic in 3 months (3) Osteoarthritis, hand, primary localized: Comment: Clinical diagnosis. Three-week history. We discussed conservative management. Code(s): M19.049 - Primary osteoarthritis, unspecified hand Category: Medical Qualifiers: Laterality: unspecified laterality Qualified Code(s): M19.049 - Primary osteoarthritis, unspecified hand Plan: CMC splint prescription given to patient OT prescribed She will try diclofenac gel 1% applied to affected area q.i.d. PRN or lidocaine topical or capsaicin topical Return to clinic in 3 months (4) Trigger finger, right middle finger: Code(s): M65.331 - Trigger finger, right middle finger Category: Medical Plan: OT with splint (5) Trigger finger, right index finger: Code(s): M65.321 - Trigger finger, right index finger Category: Medical Plan: OT with splint (6) Trigger thumb, right thumb: Code(s): M65.311 - Trigger thumb, right thumb Category: Medical Plan: OT with splint (7) Osteoarthritis of both knees: Comment: Pain in bilateral knees are uncontrolled. Code(s): M17.0 - Bilateral primary osteoarthritis of knee Category: Medical Qualifiers: Osteoarthritis type: primary Qualified Code(s): M17.0 - Bilateral primary osteoarthritis of knee Plan: Patient received bilateral knee cortisone injections this visit Return to clinic in 3 months Orders: Orders OT Evaluation and Treatment Today M18.11 - Unilateral primary osteoarthritis of first carpometacarpal joint, right hand, M19.049 - Primary osteoarthritis, unspecified hand, M65.311 - Trigger thumb, right thumb, M65.321 - Trigger finger, right index finger, M65.331 - Trigger finger, right middle finger AMB Joint Injection/Aspiration Today M17.11 - Unilateral primary osteoarthritis, right knee AMB Joint Injection/Aspiration Today M17.0 - Bilateral primary osteoarthritis of knee Medications: New arm brace (Wrist Brace) As directed right cmc splint 1 ea 0RF Coding Level of Care Code Est Pt Level 4 (91403) Complex EM visit Add On G2211 Diagnoses Medial epicondylitis, left elbow M77.02 Lumbar spondylosis M47.816 Localized, primary osteoarthritis of hand, unspecified laterality M19.049 Laterality: unspecified laterality Trigger finger, right middle finger M65.331 Trigger finger, right index finger M65.321 Trigger thumb, right thumb M65.311 Primary osteoarthritis of both knees M17.0 Osteoarthritis type: primary CPT Codes Coding - 39948 - Bilateral Large Joint: 02302 - Bilateral Large Joint ([id number]) Coding - 07999 - Bilateral Large Joint: 14172 - Bilateral Large Joint ([id number])
--- OUTSIDE RECORDS SUMMARY | 2025-07-19 13:57 | XMS_ITS | Clinical Summary ---
Author Organization LL [address] [place] [address] [place] [address] Phone Care Team Providers Care Producer Name Role Phone Madyson Givens MD Primary Care Provider [phone] Allergies No known active allergies Medications allopurinoL (ZYLOPRIM) 300 mg tablet Take 1 tablet (300 mg total) by mouth 1 (one) time each day. Active carvediloL (COREG) 25 mg tablet Take 1 tablet (25 mg total) by mouth 2 (two) times a day with meals. Active FLUTICASONE PROPIONATE NASL Administer into affected nostril(s). Active montelukast (SINGULAIR) 10 mg tablet Take 1 tablet (10 mg total) by mouth at bedtime. Active omeprazole (PriLOSEC) [address] capsule Take 1 capsule (20 mg total) by mouth 1 (one) time each day. Do not crush or chew. Active simvastatin (ZOCOR) 20 mg tablet Take 1 tablet (20 mg total) by mouth at bedtime. Active spironolactone (ALDACTONE) 25 mg tablet Take 1 tablet (25 mg total) by mouth 1 (one) time each day. Active torsemide (DEMADEX) 20 mg tablet Take 1 tablet (20 mg total) by mouth 1 (one) time each day. Active traMADoL (ULTRAM) 50 mg tablet 2 tablets (100 mg total) 1 (one) time each day if needed for severe pain. Max Daily Amount: 100 mg Active traZODone (DESYREL) 100 mg tablet Take 1 tablet (100 mg total) by mouth at bedtime. Active fluticasone-myriam meterol (ADVAIR DISKUS) 250-50 mcg/dose diskus inhaler Inhale 1 puff by mouth 2 (two) times a day. Rinse mouth with water after use to reduce aftertaste and incidence of candidiasis. Do not swallow. Active azelastine (ASTELIN) 137 mcg (0.1 %) nasal spray Administer 1 spray into each nostril 2 (two) times a day. Use in each nostril as directed Active b complex vitamins capsule Take 1 capsule by mouth 1 (one) time each day. Active D-MANNOSE ORAL Take by mouth 1 (one) time each day. Active cholecalciferol (Vitamin D3) 50 mcg (2,000 unit) capsule Take 1 capsule (2,000 Units total) by mouth 1 (one) time each day. Active MAGNESIUM ORAL Take 400 mg by mouth 1 (one) time each day. Active polyethylene glycol (MIRALAX) 17 gram packet Take 17 g by mouth 1 (one) time each day if needed for constipation. Active acetaminophen (TYLENOL) 500 mg tablet Take 1 tablet (500 mg total) by mouth 2 (two) times a day. Active psyllium (METAMUCIL) powder Take 1 packet by mouth 1 (one) time each day. Active Active Problems Problem Noted Date Diagnosed Date Shortness of breath 07/11/2025 Assessment & Plan (07/12/2025 5:00 PM EDT): The patient is not reporting significant breathlessness beyond what is anticipated for her significant level of deconditioning given her sedentary lifestyle. Activities are rendered more difficult due to her significant arthritis. There is no evidence of coronary insufficiency or congestive heart failure. Orders: ECG 12 lead Pure hypercholesterolemia 07/11/2025 Assessment & Plan (07/12/2025 5:00 PM EDT): The patient takes low-dose simvastatin. She does not have any evidence of coronary, cerebrovascular or peripheral vascular insufficiency. Orders: ECG 12 lead CKD (chronic kidney disease) stage 4, GFR 15-29 ml/min (CMS/HCC V24, CMS/HCC V28) 07/11/2025 Assessment & Plan (07/12/2025 5:00 PM EDT): Renal dysfunction is closely followed by Dr. Gore. Orders: ECG 12 lead Edema of both legs 07/11/2025 Assessment & Plan (07/12/2025 5:00 PM EDT): The patient has longstanding venous insufficiency with an element of lymphedema. She actually has minimal swelling at this time. She takes low-dose torsemide which has been well-tolerated. Renal dysfunction is closely followed by Dr. Gore. Orders: ECG 12 lead Encounters Date Type Department Care Team Description 07/12/2025 2:00 PM EDT Office Visit [facility] [address] [place] [address] Kym Delgadillo MD Shortness of breath (Primary Dx); Edema of both legs; Pure hypercholesterolemia; Primary hypertension; CKD (chronic kidney disease) stage 4, GFR 15-29 ml/min (CMS/HCC V24, CMS/HCC V28) 04/28/2025 Telephone [facility] [place] [address] [place] [address] Kym Delgadillo MD from Last 3 Months Medical History Medical [...] Mass Index 26.19 07/12/2025 2:09 PM EDT Plan of Treatment Health Maintenance Due Date Last Done Comments Diabetes: Annual Foot Exam 1945 Diabetes: Annual Retina Eye Exam 1945 Zoster Vaccines (2 of 2) 01/26/2019 12/01/2018 Cholesterol Screening (Lipid Panel) 10/12/2022 Falls Risk Assessment 10/12/2022 Medicare Annual Wellness Visit 10/12/2022 Osteoporosis Screening (Bone Density Screening) 10/12/2022 Social Influencers of Health Screening 10/12/2022 Depression Screening 11/03/2024 Diabetes: Blood Sugar Control Test (HGBA1C) 11/15/2024 COVID-19 Vaccine ( season) 2025 07/21/2024, 08/25/2023, 08/01/2022, Additional history exists Influenza Vaccine (#1) 2025 , 08/14/2023, 07/26/2022, Additional history exists Hypertension/CHF/CAD Annual BMP Blood Test 03/09/2026 03/09/2025, 03/09/2025, 11/11/2024, Additional history exists DTaP,Tdap,and Td Vaccines (2 - Td or Tdap) 06/09/2028 06/09/2018 RSV Immunization Adult Patients Completed 08/14/2023 Pneumococcal Vaccine: 50+ Years Completed 01/16/2024, 08/03/2019, 08/21/2015, Additional history exists HIB Vaccines Aged Out No longer eligi [...] age to complete this topic Meningococcal B Vaccine Aged Out No l onger eligible based on patient's age to complete this topic RSV Immunization Patients Under 20 months Aged Out No longer eligible based on patient's age to complete this topic Varicella Vaccines Aged Out No longer eligible based on patient's age to complete this topic Procedures Procedure Name Priority Date/Time Associated Diagnosis Comments ECG 12-LEAD Routine 07/12/2025 2:25 PM EDT Shortness of breath Edema of both legs Pure hypercholesterolemia Primary hypertension CKD (chronic kidney disease) stage 4, GFR 15-29 ml/min (CMS/[facility] V24, CMS/[facility] V28) from Last 3 Months Results * ECG 12 lead (07/12/2025 2:25 PM EDT) Ventricular Rate ECG 65 BPM GEMUSE Atrial Rate 65 BPM GEMUSE P-R Interval 160 ms GEMUSE QRS Duration 86 ms GEMUSE Q-T Interval 364 ms GEMUSE QTc 378 ms GEMUSE P Wave [place] 76 degrees GEMUSE R [place] 60 degrees GEMUSE T [place] 66 degrees GEMUSE ECG Interpretation Sinus rhythm with Premature atrial complexes Nonspecific T wave abnormality Abnormal ECG No previous ECGs available Confirmed by MD JOANNA, KYM ([id number]) on 07/12/2025 3:25:37 PM GEMUSE 07/12/2025 2:25 PM EDT 07/12/2025 3:25 PM EDT us Kym Delgadillo MD ECG ORDERABLES Final Result GEMUSE from Last 3 Months Insurance [facility] MEDICARE Care Teams Producer Relationship Specialty Start Date End Date Madyson Givens MD [address] [place] [address] PCP - General Internal Medicine 07/12/25
--- OUTSIDE RECORDS SUMMARY | 2025-07-19 13:57 | XMS_ITS | Encounter Summary ---
Author Organization [facility] Address [address] [place] [address] Care Team Providers Care Costume Specialist Name Role Phone Madyson Givens MD Primary Care Provider [phone] Encounter Details Date Type Department Care Team (Late st Contact Info) Description 01/21/2025 Lab Requisition [facility] [address] [facility] [place] [address] Bonilla Tate MD [address] [facility] [address] [place] [phone] Dysuria Social History Tobacco Use Types Packs/Day [...] mirabilis(A ) PATRICIA 01/22/2025 7:38 AM EDT [facility] Comment: Edited result: Previously reported [...] MICROBIOLOGY - GENERAL ORDER MAXIMILIANO Final Result [facility] [address] [place] [address], documented in this encounter Visit Diagnoses Diagnosis Dysuria documented in this encounter Care Teams Costume Specialist Relationship Specialty Start Date End Date Madyson Givens MD [address] [facility] [address] [place] [address] PCP - General Internal Medicine 07/12/25 documented as of this encounter
--- OUTSIDE RECORDS SUMMARY | 2025-07-19 13:57 | XMS_ITS | Patient Health Record ---
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) Active confirmed Problem History of fall (100030735) History of falling (Z91.81) Active confirmed Problem Venous insufficiency of leg (disorder) (356690279) Venous insufficiency (I87.2) Active confirmed Problem Urinary incontinence (168957335) Urinary incontinence in female (R32) Active confirmed Problem Hyperlipidemia (67375945) Hyperlipidemia (E78.5) Active confirmed Vital Signs Heart [...] 01/24/2025 Encounters Encounter Location Date Provider Diagnosis [facility] [address] [address] 12/27/2024 Kelle Hyatt Venous insufficiency I87.2 ; Non-pressure chronic ulcer of other part of right lower leg with fat layer exposed L97.812 and History of falling Z91.81 [facility] [address] [address] 12/30/2024 Anzhela Savonina Venous insufficiency I87.2 ; Non-pressure chronic ulcer of other part of right lower leg with fat layer exposed L97.812 and History of falling Z91.81 [facility] [address] [address] 01/03/2025 Kelle Englewood Venous insufficiency I87.2 ; Non-pressure chronic ulcer of other part of right lower leg with fat layer exposed L97.812 and History of falling Z91.81 [facility] [address] [address] 01/10/2025 Kelle Englewood Venous insufficiency I87.2 ; Non-pressure chronic ulcer of other part of right lower leg with fat layer exposed L97.812 and History of falling Z91.81 [facility] [address] [address] 01/17/2025 Kelle Priceett Venous insufficiency I87.2 ; Non-pressure chronic ulcer of other part of right lower leg with fat layer exposed L97.812 and History of falling Z91.81 [facility] [address] [address] 01/24/2025 Kelle Priceett Venous insufficiency I87.2 ; Non-pressure chronic ulcer of other part of right lower leg with fat layer exposed L97.812 and History of falling Z91.81 [facility] [address] [address] 12/22/2024 [facility] [address] [place] [address] 12/27/2024 [facility] [address] [place] [address] 12/27/2024 [facility] [address] [place] [address] 12/28/2024 Kellepedro pablo Priceett Assessments Encounter Date [...] her questions were answered to her satisfaction. Chadwick Hyatt MSN, [facility]- examined, evaluated and treated the patient. Dr. [...] her questions were answered to her satisfaction. Chadwick Hyatt MSN, [facility] examined, evaluated and treated the patient. Dr. [...] to her satisfaction. I Kelle Hyatt MSN, [facility] examined, evaluated and treated the patient. Dr. [...] to her satisfaction. I Kelle Hyatt MSN, [facility] examined, evaluated and treated the patient. Dr. [...] Medicare [address] [place], [place] [phone] [id number] Carine Moe Self - patient is the insured 1 [facility] [address] [place], [place] [id number] [id number] Carine Moe Self - patient is the insured 3 [employer] (Medicai d) [address] [place], [place] [phone] [id number] Carine Moe Self - patient is the insured 4 Medical (General) History Medical History History ICD Code Hypercalcemia E83.52 Hyperlipidemia E78.5 Essential (primary) hypertension I10 Other acute kidney failure N17.8 Urinary incontinence in female R32 UTI (urinary tract infection) N39.0 Venous insufficiency I87.2 Surgical History Surgery Date(Month/Year) Hysterectomy with bilateral oophorectomy
--- OUTSIDE RECORDS SUMMARY | 2025-07-19 13:57 | XMS_ITS | Encounter Summary ---
Author Organization [facility] Address [address] [place] [address] Care Team Providers Care Billing And Quality Technician Name Role Phone Madyson Givens MD Primary Care Provider [phone] Encounter Details Date Type Department Care Team (Late st Contact Info) Description 10/13/2024 Lab Requisition [facility] [address] [place] [address] Blade Plummer PA [address] [facility] [address] [place] [address] Pyuria Social History Tobacco Use Types Packs/Day [...] Escherichia coli(A) PATRICIA 10/15/2024 7:48 AM EST [facility] Other Urine specimen from urethra [...] PATRICIA <=0.12 ug/ml: Susceptible Escherichia coli Nitrofurantoin PTARICIA <=16 ug/ml: Susceptible Escherichia coli Trimethoprim/Sulfame thoxazo [...] MICROBIOLOGY - GENERAL ORDER MAXIMILIANO Final Result [facility] [address] [place] [address], documented in this encounter Visit Diagnoses Diagnosis Pyuria Other nonspecific finding on examination of urine documented in this encounter Care Teams Billing And Quality Technician Relationship Specialty Start Date End Date Madyson Givens MD [address] [place], [place] [address] [address] [address] PCP - General Internal Medicine 07/12/25 documented as of this encounter
== END 2025-07-19 11:28 | disposition home or self-care (01) ==
LOC: HO.RHES 10:35
PROVIDERS: PCP Internal Medicine; Visit Provider Internal Medicine Rheumatology
DX: M17.0 Bilateral primary osteoarthritis of knee (principal); M77.02 Medial epicondylitis, left elbow; M47.816 Spondylosis without myelopathy or radiculopathy, lumbar region; M19.049 Primary osteoarthritis, unspecified hand; M65.331 Trigger finger, right middle finger; M65.321 Trigger finger, right index finger; M65.311 Trigger thumb, right thumb
CPT/HCPCS: 20610; 99213

== ENCOUNTER → 2025-07-19 10:34 | Outpatient (BNVA) | payer MEDICARE, SELFPAY | PROVIDERS: PCP Internal Medicine; Visit Provider Internal Medicine Rheumatology | DX: M17.0 Bilateral primary osteoarthritis of knee (principal); M65.311 Trigger thumb, right thumb; M65.321 Trigger finger, right index finger; M19.049 Primary osteoarthritis, unspecified hand; M47.816 Spondylosis without myelopathy or radiculopathy, lumbar region; M77.02 Medial epicondylitis, left elbow | CPT/HCPCS: 20610; 99212; J2003; J3301 ==

== ENCOUNTER 2025-10-21 11:13 | Outpatient (REF) | payer MEDICARE, SELFPAY ==
--- NOTE | ~2025-10-21 | XR_ITS ---
EXAMINATION: XR ABDOMEN 2 VIEWS SUPINE ERECT HISTORY: M54.9 - Dorsalgia, unspecified COMPARISON: There are no prior studies available for comparison. FINDINGS: Supine and upright views of the abdomen are submitted. There are air-fluid levels throughout the colon which is normal in caliber. Findings may represent ileus or a diarrheal illness. There is no free intraperitoneal gas. There is no small bowel dilatation. There are phleboliths in the pelvis. There are no abnormal soft tissue masses. There is degenerative disc disease of the spine. XR/XR abdomen min 2V IMPRESSION: Air-fluid levels throughout the colon which may represent ileus or a diarrheal illness. Clinical correlation is recommended. Electronically signed by: Kb Salvador MD 10/21/2025 12:27 PM ANO[facility]
--- NOTE | ~2025-10-21 | XR_ITS ---
EXAMINATION: XR RIBS, RIGHT CLINICAL INFORMATION: M54.9 - Dorsalgia, unspecified COMPARISON: Chest x-ray dated September 29, 2024. TECHNIQUE: PA chest. Oblique views right hemithorax. BB Skin marker placed. FINDINGS: Pulmonary reticular pattern. Elevated left hemidiaphragm. No consolidation, pleural effusion or pneumothorax. Cardiomediastinal silhouette size is normal. Calcified plaque aortic arch. Multilevel thoracolumbar spondylosis and a shaped curvature. No acute deformity in the ribs of the right hemithorax. Nonspecific gas filled prominent intestine beneath the left hemidiaphragm.. XR/XR ribs RT min 3V w CXR1V IMPRESSION: No acute rib fracture, right hemithorax. Chronic interstitial lung disease without acute airspace disease. Overall stable. Electronically signed by: Abner Howard MD 10/21/2025 12:29 PM [facility]
== END 2025-10-21 11:14 | disposition home or self-care (01) ==
LOC: HO.XRAY 11:13
PROVIDERS: PCP Internal Medicine; Visit Provider Hospitalist
DX: M54.50 Low back pain, unspecified (principal); R19.7 Diarrhea, unspecified; J45.40 Moderate persistent asthma, uncomplicated; J47.9 Bronchiectasis, uncomplicated; R05.8 Other specified cough; J31.0 Chronic rhinitis; R91.8 Other nonspecific abnormal finding of lung field; Z87.891 Personal history of nicotine dependence; Z79.899 Other long term (current) drug therapy
CPT/HCPCS: 71101; 74019; 99212

== ENCOUNTER 2025-10-21 11:13 | Outpatient (AMB) | payer MEDICARE, SELFPAY ==
[2025-10-21 11:16] VITALS: BP 116/50; PULSE 72; O2SAT 97; BMI 26.5
--- NOTE | 2025-10-21 11:16 | A.OFFVIS_ITS ---
Vital Signs 10/21/25 11:16 Height 5 ft 4.5 in Weight 156 lb 8.451 oz BMI 26.5 BP 116/50 L Blood Pressure Location Lt brachial Position Sitting Pulse 72 Pulse Source Pulse Oximeter Pulse Oximetry (%) 97 Oxygen Delivery Method Room Air Intake Visit Reasons: COPD Wood Crew Supervisor Required: No Space Operations: Space Operations offered & declined Accompanied by: Daughter Allergies No Known Allergies Allergy (Verified 10/21/25 11:21) HPI Comments Details: Patient is an 89-year-old woman with known history of asthma in addition to bronchiectasis and pulmonary nodules. Overall she has been doing well from a respiratory status. She does have an Advair inhaler but she is seldom uses it. Mainly when she gets sick. She has required at all the summer. She does not have a rescue inhaler her. She should have 1 readily available. She did have a repeat CT scan of the chest at radiology imaging in and [place] back in November 2019. I personally reviewed the CT scan demonstrating numerous pulmonary nodules were unchanged when compared to CT scan from 2017. At this point will plan to repeat the CT scan in November 2020. 12/15/2020 the patient has a telephone visit. Overall the patient has been doing well. She continues on the combination inhaler with good adherence. She also has been taking the singular. She feels that this has been helpful. She was asking about taking the antihistamines in the singular and I reassured her that is okay for her to do that. I did request that she takes med different times to avoid too much drowsiness. She did undergo a CT scan of the chest that we discussed. It appears that her pulmonary nodules are stable. She has multiple nodules noted. Her largest nodule 5 mm. The only new finding on the CT scan is that she has small bilateral pleural effusions. On further questioning she has been taking more by mouth. She recently saw her conveyor monitor to told her not to take some much fluids. Therefore she has backed off on her fluid intake. She denies any lower extremity edema this time and has been better since she de crease the amount of fluid intake. If the patient develops any worsening shortness of breath or any other concerning symptoms she is to call for earlier evaluation otherwise will discuss this further in 6 months time. 06/18/2021 the patient is here for a pulmonary follow-up visit. Overall the patient has been feeling well. She continues taking her respiratory medications. She is concerned about the findings of the CT scan demonstrating the bilateral small pleural effusions. Of the time the patient was taking in a lot of fluids. She subsequently after that decrease taking as much. I have reassured the patient that this is likely just related to her volume status at the time. Her exam is completely normal with no diminished breath sounds at the bases and no dullness to percussion. I will have her get an x-ray just to make sure that the effusions have subsided. If there is still some abnormality we can consider an echocardiogram and also consider additional imaging studies. H er pulmonary nodules have been stable social will require an additional CT scan until November 2021 to follow up with her yearly CAT scan to assess her pulmonary nodules at that time. 01/15/2024 the patient is here for pulmonary follow-up visit. Overall the patient has been doing well. She has not had to use Wixela. She does prefer to use her rescue inhaler. She has not had to use the rescue inhaler either. Denies any cough or chest congestion. Denies any respiratory limitations. She did have a CT scan of the chest back in 2021 demonstrating stable pulmonary nodules. She does have some bronchiectatic changes. She is having back pain. It is uncomfortable for her. No radiation. She did see a glue specialty supervisor. I did recommend she see a pain specialist. Otherwise no further imaging studies from a pulmonary standpoint at this time. Will plan to follow-up in late September. However, if she is doing good she can always personally appointment to the the spring. Also, she is going to hold off on the Wixela. She can use her rescue inhaler. However, she starts needing to use her rescue inhaler more than twice a week then she should be starting the Wixela as well. She has already had vaccinations for the flu RSV and COVID. She will talk to the pharmacist to see if she is up to date with her Prevnar 20. 09/28/2024 the patient is here for pulmonary follow-up visit. Since the well. She has the inhaler. She does continue beneficial. Her breathing has not issue. However significant weight loss. She has lost more than 20 lb in the last 2 months. In addition to that she has lost more than 70 lb in the last year. Her daughter is with her to confirm that. She states that she has had a some diarrhea issues. She does follow-up with GI. In addition to that she was brought actively trying to lose the weight. She feels healthy. Denies any night sweats or fevers. Denies any respiratory complaints. She does have underlying pulmonary nodules that were followed before. Her nodules had been stable for more than 2 years and therefore no additional imaging study warranted. In view of her ongoing weight loss will have her get an x-ray. If her x-ray is abnormal she may need additional imaging studies. For now she is doing good she will follow-up in 8-12 months. If she has any issues prior to that she will call for an earlier assessment. 05/23/2025 the patient is here for a pulmonary follow-up visit. Overall she is doing okay. Breathing cuellar she is doing better. The patient states that she has not had to use her maintenance inhalers in longer. She does have the rescue inhaler she can use as needed but even that she does not use often typically less than 2 times a week. In addition to that major complaint is postnasal drip and typically in the morning having some nasal congestion and cough. Moderate severity. She did try the ipratropium nasal spray but this was not helpful. When she started the ipratropium nasal spray she missed understood and she stopped the fluticasone as well. I did encourage her to restart the fluticasone nasal spray. Will go ahead and order Astelin nasal spray that she can not take along with it. Her nasal passages are very dry. She can also try saline gel nasal spray. She can also try Biotene mouthwash for her mouth that is also very dry. Will plan to follow-up in 4 months. If she has any issues prior to this she will call for an earlier assessment. 12/22/2024 the patient is here for pulmonary follow-up visit. Overall she is doing well from a respiratory status. Although her blood pressure was little low today. Apparently she has been having issues with diarrhea liquid diarrhea for the last 2 months or so. It is very difficult for her. Her appetite has been down as well. She is trying to see a GI specialist but her GI specialist retired. She has been taking Imodium with minimal effect. Also she had a fall sudden related it was related to low blood pressure but she hurt her back. She does have a bruising in an open area on the back. Was tender to the touch. Also did her with pleuritic inspiratory effort. Therefore it is not reasonable just to check a rib x-rays since she may have hurt her ribs. Also check an abdominal x-rays. She is going to drink some Pedialyte. She is taking 2 diuretics. She needs to talk to her primary care doctor about the diuretics s pecially with significant diarrhea and decreased p.o. intake can low blood pressure. I gave her some recommendations at least through the weekend. In the meantime she will follow-up with GI and primary care regarding his significant issue. For the pulmonary standpoint she is doing well on the current therapy so will follow-up in a year's time. If any issues arise she can always call for further recommendations. [facility] Medical History (Updated 10/23/25 @ 22:40 by Bobby Tamez MD) Diarrhea Acute back pain Chronic rhinitis Upper airway cough syndrome Pleural effusion Pulmonary nodules Bronchiectasis Asthma Social History Patient Tobacco Use Status: Former Tobacco user Tobacco use type: Cigarette Years Smoked: 25 years Review of Systems Const Denies night sweats and Reports weight loss ENT Denies change in voice, Denies lip swelling, Denies mouth pain, Reports nasal congestion, Reports nasal discharge and Denies tongue swelling Card Denies chest pain Resp Denies chest congestion and Reports cough GI Denies abdominal pain and Reports diarrhea Musc Denies no additional complaints Neuro Denies Neuro-related abnormal movements Psych Denies no additional complaints Sherif/Lymph Denies easy bleeding and Denies lymphadenopathy Aller/Immun Denies lip swelling and Denies tongue swelling Physical Exam Vital Signs: Last Vital Signs Pulse 72 10/21/25 11:16 BP 116/50 L 10/21/25 11:16 Pulse Ox 97 10/21/25 11:16 Oxygen Delivery Method Room Air 10/21/25 11:16 BMI result Body Mass Index 26.5 Const General: alert Neck Neck: Yes normal visual inspection, Yes full ROM and Yes no lymphadenopathy Chest Chest palpation & inspection: normal inspection of the chest Resp Effort & Inspection: normal respiratory effort Auscultation: clear to auscultation bilaterally Percussion: no dullness to percussion Cardio Rate: regular rate Rhythm: regular rhythm Heart sounds: S1 normal heart sound present and S2 normal heart sound present GI Palpation (GI): Soft to palpation and nontender Auscultation: normal bowel sounds Back/Spine/Pelvis Back: erythema and back tenderness Skin General skin exam: rashes and/or lesions noted Assessment & Plan Assessment & Plan (1) Acute back pain: Code(s): M54.9 - Dorsalgia, unspecified Category: Medical Qualifiers: Back pain laterality: unspecified Sciatica presence: unspecified whether sciatica present Back pain location: low back pain Qualified Code(s): M54.50 - Low back pain, unspecified (2) Diarrhea: Code(s): R19.7 - Diarrhea, unspecified Category: Medical Qualifiers: Diarrhea type: unspecified type Qualified Code(s): R19.7 - Diarrhea, unspecified (3) Asthma: Code(s): J45.909 - Unspecified asthma, uncomplicated Category: Medical Qualifiers: Asthma severity: moderate Asthma persistence: persistent Asthma complication type: uncomplicated Qualified Code(s): J45.40 - Moderate persistent asthma, uncomplicated (4) Bronchiectasis: Code(s): J47.9 - Bronchiectasis, uncomplicated Category: Medical Qualifiers: Bronchiectasis type: uncomplicated Qualified Code(s): J47.9 - Bronchiectasis, uncomplicated (5) Pulmonary nodules: Code(s): R91.8 - Other nonspecific abnormal finding of lung field Category: Medical (6) Upper airway cough syndrome: Code(s): R05.8 - Other specified cough Category: Medical (7) Chronic rhinitis: Code(s): J31.0 - Chronic rhinitis Category: Medical Plan Fluticasone nasal spray Azesteline nasal spray stop ipratropium nasal holding Wixela 250 Short-acting beta agonist as needed CXR with rib series Abd xray CPT with acapella valve Follow-up in 4-5 months Orders: Orders XR ribs RT min 3V w CXR1V 10/21/25 M54.9 - Dorsalgia, unspecified, R19.7 - Diarrhea, unspecified Coding Level of Care Code Est Pt Level 4 (49913) Diagnoses Acute low back pain, unspecified back pain laterality, unspecified whether sciatica present M54.50 Back pain laterality: unspecified Sciatica presence: unspecified whether sciatica present Back pain location: low back pain Diarrhea, unspecified type R19.7 Diarrhea type: unspecified type Moderate persistent asthma without complication J45.40 Asthma severity: moderate Asthma persistence: persistent Asthma complication type: uncomplicated Bronchiectasis without complication J47.9 Bronchiectasis type: uncomplicated Pulmonary nodules R91.8 Upper airway cough syndrome R05.8 Chronic rhinitis J31.0 Time Spent (min) 16
--- OUTSIDE RECORDS SUMMARY | 2025-10-21 13:13 | XMS_ITS | Clinical Summary ---
Author Organization [facility] [address] [place] [address] [place] [phone] Phone Care Team Providers Care Software Asset Management Analyst Name Role Phone Madyson Givens MD Primary Care Provider [phone] Allergies No known active allergies Medications allopurinoL [...] kidney disease) stage 4, GFR 15-29 ml/min 07/11/2025 Assessment & Plan (07/12/2025 5:00 PM [...] Encounters Date Type Department Care Team Description 10/19/2025 Telephone Gastroenterology - [address] [place] [address] Prashant Britt MD from Last 3 Months Medical History [...] Years Used Date Smoking Tobacco: Former Cigarettes 0.5 Q uit: 11/03/1999 Smokeless Tobacco: Never Alcohol [...] history exists Hypertension/CHF/CAD Annual BMP Blood Test 09/07/2026 09/07/2025, 09/07/2025, 03/09/2025, Additional history exists DTaP,Tdap,and Td Vaccines (2 [...] on patient's age to complete this topic Insurance [facility] MEDICARE Care Teams Software Asset Management Analyst Relationship Specialty Start Date End Date Madyson Givens MD [address] [id number] PCP - General Internal Medicine 07/12/25
--- OUTSIDE RECORDS SUMMARY | 2025-10-21 13:13 | XMS_ITS | Continuity of Care Document ---
Author Organization [place] - [facility], [facility] Address [address] [place] [address] Care Team Providers Care X Ray Service Engineer Name Role Phone JOSE MIGUEL DELA CRUZ Primary Care Provider [phone] Assessment Encounter Date Assessment Date Assessment LastModified by Organization Details LastModified Time 09/06/2025 09/06/2025 89-year-old female who wears binaural amplification with a long-standing history of a right TM perforation presents with concerns of excessive cerumen in the right ear. On examination there is a cerumen impaction in the right external auditory canal, which was removed entirely today. The right TM has a stable 75% central perforation that is dry. There is no cerumen in the left external auditory canal and the left TM is intact with a well aerated middle ear space. Since the patient has a right TM perforation I would like for her to avoid ear lavages in the future and to keep that ear dry to minimize infection. She would likely benefit from yearly ear cleanings, so I will have her schedule one for next year. The patient is scheduled for audiometric testing in December 2025 and has a follow-up with Dr. Rizo. 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 The patient would like to discuss this more after receiving her audiometric testing in December. [email or web address] Not available 09/06/2025 17:06:26 Plan of Treatment Reminders Order Date Submit Date Provider Last Modified By Organization Details Last Modified Time Details Appointments Hearing Test 2025 11:00A M Hearing Test Not available Not available Not available Establish ed 30 2025 12:00P M JOSHUA KLINE MD Not available Not available Not available Establish ed 15 2025 10:45A M LIZZ AKERS Not available Not available Not available Lab None recorded. Referral None recorded. Procedures None recorded. Surgeries None recorded. Imaging None recorded. Medication Orders None recorded. Patient TargetsNo targets recorded. Patient InstructionsNo instructions recorded. Reason for Referral None Reported. 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 JOSHUA DE LEON MD [address] [place],[address], [place], [address] , [facility] - [facility] 5 12:56:07 Chronic sinusitis 99875296 Active 2024 JOSHUA DE LEON MD [address] [place],[address], [place], [address] , [facility] - [facility] 5 12:56:07 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 3928092070010 101 Active 2024 JOSHUA DE LEON MD [address], [place], [address] , [facility] - [facility] 5 13:19:50 Impacted cerumen in right ear 0036743887528 103 Active 2024 LIZZ AKERS [address], [place], [address] , [place] - [facility] 5 17:06:04 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 07514841 Active 2024 SANTOS DOE, [facility] [address] [facility],[place] [address], [facility] [place], [address] , [place] - [facility] 5 13:54:26 Sensorineu ral hearing loss 89919392 Active 2024 SANTOS DOE, [facility] [address] [facility],[place] [address], [facility] [place], [address] , [place] - [facility] 5 13:54:30 Sensorineu ral hearing 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 Procedures Surgical History Date Name Laterality Status Provider Name and Address Organization Details Recorded Time 5 Cerumen removal without microscope right completed LIZZ AKERS [address] [facility],[place] [address], [place], [address], [facility] - [facility] 09/06/2025 17:02:00 5 Comp Audio with Tymps - 06194 & 64902 completed SANTOSAGNIESZKA DOE, [facility] [address] [facility],[place] [address], [place], [address], [facility] - [facility] 11/10/2024 13:44:01 Imaging Results None recorded. Procedure Notes None recorded. Medical Equipment None Reported. Allergies Allergen ID Allergen Name Allergen Category Reaction Reaction Severity Criticality Documentation Date Start Date Code Code System Note Provider Name and Address Organization Details Recorded Time 78057 penicilli n V potassium medicatio n other Not available Not available 03/16/202475672 5 RxNorm React ion: unkno wn, unspe cifie d;; Not Available [facility] 4 00:52:42 17539 Substance with sulfonami de structure and antibacte rial mechanism of action (substanc e) medicatio n other Not available Not available 03/16/2024 89526 8003 SNOMED React ion: unkno wn, unspe cifie d;; Not Available [facility] 4 00:52:47 Medications Name Sig Start Date Stop Date Status Note LastModified by Organization Details LastModified Time silver sulfadiazin e 1 % topical cream APPLY A 1/16 INCH THICK LAYER TO ENTIRE WOUND AREA ONCE A DAY 09/05 completed Not Available Not Available Not Available carvedilol 25 mg tablet TAKE 1 TABLET IN THE MORNING AND 1 TABLET IN THEEVENIN G active Not Available Not Available No t Available torsemide 20 mg tablet TAKE 1 TABLET EVERY MORNINGAN D 1 TABLET EVERY EVENING active Not Available Not Available No t Available lidocaine 4 % topical patch APPLY 1 PATCH TOPICALLY EVERY DAY NEEDED FOR PAIN. APPLY TO THE LOWER BACK NEEDED FOR NO MORE THAN 12 HOURS PER DAY active Not Available Not Available No t Available meloxicam 15 mg tablet 09/06 completed Not Available Not Available Not Available prednisone 20 mg tablet TAKE 2 TABLETS BY MOUTH TODAY THEN 2 TABLETS TOMORROW AND THEN 1 TABLET DAILY FOR 4 MORE DAYS 11/10 completed Not Available Not Available Not Available diphenoxyla te-atropine 2.5 mg-0.025 mg tablet TAKE 1 TABLET BY MOUTH TWICE DAILY NEEDED FOR DIARRHEA 11/10 completed Not Available Not Available Not Available sulfamethox azole 800 mg-trimetho prim 160 mg tablet TAKE 1 TABLET BY MOUTH EVERY 12 HOURS FOR 7 DAYS 09/05 completed Not Available Not Available Not Available tramadol 50 mg tablet TAKE 1 TABLET BY MOUTH ONCE A DAY NEEDED active Not Available Not Available No t Available spironolact one 25 mg tablet TAKE 1 TABLET ONCE DAILY active Not Available Not Available No t Available lorazepam 0.5 mg tablet 09/06 completed Not Available Not Available Not Available trazodone 100 mg tablet active Not Available Not Available Not Available cephalexin 500 mg capsule TAKE 1 CAPSULE BY MOUTH TWICE DAILY 09/05 completed Not Available Not Available Not Available omeprazole 20 mg capsule,del ayed release TAKE 1 CAPSULE DAILY active Not Available Not Available No t Available allopurinol 300 mg tablet TAKE 1 TABLET ONCE DAILY active Not Available Not Available No t Available azelastine 137 mcg (0.1 %) nasal spray USE 2 SPRAYS IN EACH NOSTRIL TWICE DAILY active Not Available Not Available No t Available estradiol 0.01% (0.1 mg/gram) vaginal cream USE 1 GRAM VAGINALLY AND URETHRA 2 TIMES A WEEK 09/06 completed Not Available Not Available Not Available ipratropium bromide 42 mcg (0.06 %) nasal spray USE 2 SPRAYS IN EACH NOSTRIL THREE TIMES DAILY NEEDED FOR ALLERGY SYMPTOMS 09/06 completed Not Available Not Available Not Available fluticasone propionate 50 mcg/actuati on nasal spray,suspe nsion SHAKE LIQUID AND USE 2 SPRAYS IN EACH NOSTRIL DAILY active Not Available Not Available No t Available nitrofurant oin monohydrate /macrocryst als 100 mg capsule TAKE 1 CAPSULE BY MOUTH TWICE DAILY 09/06 completed Not Available Not Available Not Available Vitals Date Recorded Body height Body mass index (BMI) Body weight Provider Name and Address Organization Details Last Updated DateTime 09/06/2025 162.56 cm 26.6 kg/m2 10521.82 g Micki Briceno [place] - [facility] 09/06/2025 15:06:16 Social History None recorded. Functional Status None recorded. Mental Status None recorded. Family History Nothing Reported. Medical History Condition Response Arthritis Y Hypertension Y Gynecological HistoryNo gynecological history recorded. Obstetrics History GPAL:G 0 P 0 0 0 0 Past Encounters Encounter ID Performer Location Encounter Start Date Encounter Closed Date Diagnosis/Indication Diagnosis SNOMED-CT Code Diagnosis ICD10 Code Diagnosis IMO Codes Diagnosis Note [id number] LIZZ AKERS [facility] of [address] [address] 09/06/2025 14:44:09 09/06/2025 15:33:44 Impacted cerumen in right ear 3413694812 553732 H61.21 8009358 Central pe rforation of right tympanic membrane 9641037363 275889 H72.01 Mixed cond uctive and sensorineural hearing loss of right ear 8572507308 9105 H90.A31 Sensorineu ral hearing loss in left ear 8648988226 9109 H90.A22 Health Concerns Section Related Observation LastModified by Organization Detai ls LastModified Time None Recorded Concern Status LastModified by Organization Details LastModified Time None Recorded Payers Encounter Date Sequence Insurance Name Policy Number Policy Yoo Covered Member ID Yoo Member ID Guarantor Name 09/06/2025 1 [place] Carine Moe [id number] Carine Moe 09/06/2025 2 [place] [id number] Carine Moe [id number] Carine Moe Notes Date Note Type Note Provider Name and Address Organization Details Recorded Time 09/06/2025 text/html ROS as noted in the HPI 89-year-old female who wears binaural amplification with a long-standing history of a right TM perforation presents with concerns of excessive cerumen in the right ear. Her PCP found a cerumen impaction in the right ear and attempted removal with lavage, however it caused significant pain to the patient so it was stopped. She reports continued right ear pain. She gets her hearing aids through [employer], however she finds the right hearing aid to be ineffective since she has significant hearing loss in that ear. She denies ear drainage or recent ear infections. She uses Q-tips to clean both ears. PERCY OLVERA MD [address] [place] [address], [id number] - [facility] 09/07/2025 10:56:45 OBGyn Episode No OBEpisode recorded.
--- OUTSIDE RECORDS SUMMARY | 2025-10-21 13:13 | XMS_ITS | Encounter Summary ---
Author Organization [facility] Address [address] [place] [address] Care Team Providers Care Customer Complaint Service Supervisor Name Role Phone Madyson Givens MD Primary Care Provider Encounter Details Date Type Department Care Team (Late st Contact Info) Description 10/13/2024 Lab Requisition [facility] [address] [place] [address] Blade Plummer PA [address] [facility] [address] [place] [address] Pyuria Social History Tobacco Use Types Packs/Day [...] Escherichia coli(A) PATRICIA 10/15/2024 7:48 AM EST [facility] Other Urine specimen from urethra [...] - GENERAL ORDER MAXIMILIANO Final Result [facility] [address] [place] [address], documented in this encounter Visit Diagnoses Diagnosis Pyuria Other nonspecific finding on examination of urine documented in this encounter Care Teams Customer Complaint Service Supervisor Relationship Specialty Start Date End Date Madyson Givens MD [address] [facility] [address] [address] PCP - General Internal Medicine 07/12/25 documented as of this encounter
--- OUTSIDE RECORDS SUMMARY | 2025-10-21 13:13 | XMS_ITS | Clinical Summary ---
Author Organization [facility] Address [email or web address] [facility] [address] [place] [address] Phone Care Team Providers Care Lining Mechanic Name Role Phone Madyson Givens MD Primary Care Provider [phone] Allergies Active Allergy Reactions Criticality Noted Date [...] Take by mouth. Active mv,catherine,iron,mn/fol ic acid/chol ([id number]-[id number], PABA, ORAL) Take by mouth. Active b [...] VACCINES (50+ years) (2 of 2 - PCV20 or PCV21) 08/21/2016 08/21/2015 ZOSTER VACCINES (2 of 2) 01/26/2019 12/01/2018 INFLUENZA VACCINE (#1) 2025 , 07/26/2022, 07/20/2021, Additional history exists COVID-19 VACCINE ( season) 2025 08/25/2023, 08/01/2022, 02/27/2022, Additional history exists Adult [...] file Insurance MEDICARE PART A & B [employer] [place] [employer] SUPPLEMENT MEDICARE PART A & B [employer] SUPPLEMENT MEDICARE PART A & B [employer] SUPPLEMENT MEDICARE PART A & B [employer] MEDEX SUPPLEMENT MEDICARE PART A & B [employer] MEDEX SUPPLEMENT MEDICARE PART A & B [facility] MEDEX SUPPLEMENT MEDICARE PART A & B [employer] SUPPLEMENT MEDICARE PART A & B [employer] SUPP[employer] MEDICARE PART A & B [employer] MEDEX SUPPLEMENT Care Teams Lining Mechanic Relationship Specialty Start Date End Date Madyson Givens MD [address] [place] [address] [email or web address] PCP - General Internal Medicine 10/24/22 Additional Source Comments The information contained in this document represents components of the legal health record. It is not the complete legal health record.[facility]
--- OUTSIDE RECORDS SUMMARY | 2025-10-21 13:13 | XMS_ITS | Encounter Summary ---
Author Organization [facility] Address [address] [place] [address] Care Team Providers Care Truck Shop Mechanic Name Role Phone Madyson Givens MD Primary Care Provider [phone] Encounter Details Date Type Department Care Team (Late st Contact Info) Description 01/21/[address] [facility] [address] [facility] [place] [address] Bonilla Tate MD [address] [facility] [address] [place] [address] Dysuria Social History Tobacco Use Types Packs/Day [...] mirabilis(A ) PATRICIA 01/22/2025 7:38 AM EDT [facility] Comment: Edited result: Previously reported [...] MICROBIOLOGY - GENERAL ORDER MAXIMILIANO Final Result [facility] [address] [place] [address], documented in this encounter Visit Diagnoses Diagnosis Dysuria documented in this encounter Care Teams Truck Shop Mechanic Relationship Specialty Start Date End Date Madyson Givens MD [address] [facility] [address] [place] [address] PCP - General Internal Medicine 07/12/25 documented as of this encounter
--- OUTSIDE RECORDS SUMMARY | 2025-10-21 13:13 | XMS_ITS | Patient Health Record ---
Author Organization [facility] Address [address] [place] [address] Care Team Providers Care Stand Up Forklift Operator Name Role Phone Madyson Givens MD Primary Care Provider Unavaila Fabricio Elmore Unavailable [phone] Kelle Hyatt Unavailable [phone] Allergies No Known Allergies Reason For Referral No Information Medications Medication SIG (Take, Route, Frequency, Duration) Notes Start Date End Date Status Meloxicam 15 MG 1 tablet Orally Once a day Active Lomotil 2.5-0.025 MG 1 tablet as needed Orally Four times a day Active Simvastatin 20 MG 1 tablet in the evening Orally Once a day Active Omeprazole 20 MG 1 capsule 1/2 to 1 hour before morning meal Orally Once a day Active Spironolactone 25 MG 1 tablet Orally Active Bactrim DS 800-160 MG 1 tablet Orally Th ree times a Week Not-Taking Singulair 10 MG 1 tablet Orally Once a day Active traMADol HCl 50 MG 1 tablet as needed Orally Once a day Active Silvadene 1 % 1 application Externally Once a day Not-Taking Torsemide 20 MG 1 tablet Orally Once a day Active Doxycycline Hyclate 100 MG 1 capsule Ora lly Once a day Not-Taking Carvedilol 25 MG 1 tablet with food Orally Twice a day Active traZODone HCl 100 MG 1 tablet at bedtime Orally Once a day Active Allopurinol 300 MG 1 tablet Orally Once a day Active Fluticasone Propionate 50 MCG/ACT 1 spray in each nostril Nasally Twice a day Active Problems Problem Type SNOMED Code ICD Code Onset Dates Problem Status W/U Status Risk Notes Problem Essential hypertension (77566179) Essential (primary) hypertension (I10) Active confirmed Problem Chronic non-pressure ulcer of calf extending to fat level (0004175938270330 1) 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) Active confirmed Problem History of fall (179547920) History of falling (Z91.81) Active confirmed Problem Peripheral venous insufficiency (19535750) Venous insufficiency (I87.2) Active confirmed Problem Urinary incontinence (159514944) Urinary incontinence in female (R32) Active confirmed Problem Hyperlipidemia (76797848) Hyperlipidemia (E78.5) Active confirmed Vital Signs Heart Rate 67 /min 09/22/2025 Temperature 97.2 degrees Fahrenheit 09/22/2025 Respiratory Rate 16 /min 09/22/2025 Blood pressure diastolic 62 mm Hg 09/22/2025 Height-cm 162.56 cm 09/22/2025 Oximetry 97 % 09/22/2025 Weight-kg 70.31 kg 09/22/2025 Height 64 in 09/22/2025 Blood pressure systolic 132 mm Hg 09/22/2025 Weight 155 lbs 09/22/2025 BMI 26.6 kg/m2 09/22/2025 Encounters Encounter Location Date Provider Diagnosis [facility] [address] [address] 12/27/2024 Kelle Hyatt Venous insufficiency I87.2 ; Non-pressure chronic ulcer of other part of right lower leg with fat layer exposed L97.812 and History of falling Z91.81 [facility] [address] [address] 12/30/2024 Anzhela Savonina Venous insufficiency I87.2 ; Non-pressure chronic ulcer of other part of right lower leg with fat layer exposed L97.812 and History of falling Z91.81 [facility] [address] [address] 01/03/2025 Kellepedro pablo Priceett Venous insufficiency I87.2 ; Non-pressure chronic ulcer of other part of right lower leg with fat layer exposed L97.812 and History of falling Z91.81 [facility] [address] [address] 01/10/2025 Kellepedro pablo Priceett Venous insufficiency I87.2 ; Non-pressure chronic ulcer of other part of right lower leg with fat layer exposed L97.812 and History of falling Z91.81 [facility] [address] [address] 01/17/2025 Kelle Hyatt Venous insufficiency I87.2 ; Non-pressure chronic ulcer of other part of right lower leg with fat layer exposed L97.812 and History of falling Z91.81 [facility] [address] [address] 01/24/2025 Kelle Hyatt Venous insufficiency I87.2 ; Non-pressure chronic ulcer of other part of right lower leg with fat layer exposed L97.812 and History of falling Z91.81 [facility] [address] 09/13/2025 Anzhela Savonina Venous insufficiency I87.2 ; Non-pressure chronic ulcer of other part of right lower leg with fat layer exposed L97.812 ; Edema of both lower extremities R60.0 ; History of falling Z91.81 and Essential (primary) hypertension I10 [facility] [address] 09/22/2025 Anzhela Savonina Venous insufficiency I87.2 ; Non-pressure chronic ulcer of other part of right lower leg with fat layer exposed L97.812 ; Edema of both lower extremities R60.0 ; History of falling Z91.81 and Essential (primary) hypertension I10 [facility] [address] [address] 12/22/2024 Kelle Hyatt [facility] [address] [place] [address] 12/27/2024 Kelle Hyatt [facility] [address] [place] [address] 12/27[facility] [address] [place] [address] 12/28/2024 Kelle Hyatt Assessments Encounter Date Diagnosis (ICD Code) Assessment [...] to her satisfaction. I Kelle Hyatt MSN, [facility]- examined, evaluated and treated the patient. Dr. Michael Man was available for any question or concerns that I may have had. 12/27/2024 Venous insufficiency (ICD-10 - I87.2) 12/30/2024 Venous insufficiency (ICD-10 - I87.2) 01/03/2025 Venous insufficiency (ICD-10 - I87.2) 01/10/2025 Venous insufficiency (ICD-10 - I87.2) 01/17/2025 Venous insufficiency (ICD-10 - I87.2) 01/24/2025 Venous insufficiency (ICD-10 - I87.2) 09/13/2025 Non-pressure chronic ulcer of other part of right lower leg with fat layer exposed (ICD-10 - L97.812) On exam, alert & cooperative with care. We removed the dressing to her RLE and examined the wound sites. The wounds are located on the right anterior leg, it is a cluster of 2, there is evidence of re-epithelializ ed tissue, there is old clotted blood, eccymosis, slough and loose skin present. There is no surrounding erythema of signs of infection. She has edema to BLE, palpable DP on the right, no cyanosis. I discussed the indication for debridement and patient was agreeable to procedure. I performed debridement of the wound as detailed above. Wound was cleaned with saline and Xeroform was applied to the wound bed, zinc to periwound secured with dsd. Tubigrip was applied to the right leg. She tolerated the procedure well. Carine presents today for evaluation and treatment of right leg laceration wound from hitting the leg on a car door. Wound has made some healing progress. I recommend washing the wound with saline, apply Xeroform to the wound bed, zinc to periwound secure with DSD. I reviewed her previous ABIs as noted above, normal at the time. I will begin Tubigrip for reduce edema. I will order f/u ABIs. I encouraged leg elevation. Daughter, patient and nursing agree with plan of care and her questions were answered to her satisfaction. She will return in 1 week for a follow up visit. I Fabricio RANGEL-Aleyda, examined, evaluated and treated the patient. Dr. Michael Man was available for any question or concerns that I may have had. 09/13/2025 Venous insufficiency (ICD-10 - I87.2) 09/22/2025 Venous insufficiency (ICD-10 - I87.2) 09/13/2025 Edema of both lower extremities (ICD-10 - R60.0) 09/22/2025 Non-pressure chronic ulcer of other part of right lower leg with fat layer exposed (ICD-10 - L97.812) On exam, alert & cooperative with care. We removed the dressing to her RLE and examined the wound sites. The wounds are located on the right anterior leg, they are re-epithelializ ed. She has some old bloody drainage with scabbing. There is no surrounding erythema or signs of local infection. Skin prep was applied followed by DSD for protection. Tubigrip was reapplied. I recommended applying skin prep for additional 5 days and keeping the area covered for protection. Continue with compression stockings daily and leg elevation. She does not need any further follow up. Thank you for allowing us to participate in your care. I Fabricio Duggan DAIRY HUSBANDRY TEACHER-C, examined, evaluated and treated the patient. Dr. Michael Man was available for any question or concerns that I may have had. 01/24/2025 Non-pressure chronic ulcer of other part [...] answered to her satisfaction. Chadwick Hyatt MSN, [facility] examined, evaluated and treated the patient. Dr. [...] answered to her satisfaction. Chadwick Hyatt MSN, [facility] examined, evaluated and treated the patient. Dr. [...] answered to her satisfaction. Chadwick Hyatt MSN, [facility] examined, evaluated and treated the patient. Dr. [...] 01/24/2025 History of falling (ICD-10 - Z91.81) 09/13/2025 History of falling (ICD-10 - Z91.81) 09/22/2025 Edema of both lower extremities (ICD-10 - R60.0) 09/22/2025 History of falling (ICD-10 - Z91.81) 09/13/2025 Essential (primary) hypertension (ICD-10 - I10) 09/22/2025 Essential (primary) hypertension (ICD-10 - I10) 12/30/2024 Other 12/30 and reflected a R SAROJ of 0.96 and TIB of 0.33 and L SAROJ of 0.84 and TBI of 0.49 Plan Of Treatment No Information Insurance Providers Payer Name Payer Address Payer Phone Subscriber Number Group Number Insured Name Patient Relationship to Insured Coverage Start Date Coverage End Date Medicare [address] [facility] [place] [phone] [id number] Carine Moe Self - patient is the insured 1 [employer] [facility] ([employer] [facility]) [address] [place], [place] [phone] [id number] Carine Moe Self - patient is the insured 3 [employer] (Medicai d) [address] [place], [place] [phone] [id number] Carine Moe Self - patient is the insured 4 Medical (General) History Medical History History ICD Code Hypercalcemia E83.52 Hyperlipidemia E78.5 Essential (primary) hypertension I10 Other acute kidney failure N17.8 Urinary incontinence in female R32 UTI (urinary tract infection) N39.0 Venous insufficiency I87.2 Surgical History Surgery Date(Month/Year) Hysterectomy with bilateral oophorectomy
--- OUTSIDE RECORDS SUMMARY | 2025-10-21 13:13 | XMS_ITS | Clinical Summary ---
Author Organization [facility] Address [address] [address] Phone Care Team Providers Care Rotogravure Press Operator Name Role Phone Madyson Givens MD Primary Care Provider [phone] Allergies Active Allergy Reactions Criticality Noted Date Comments Levofloxacin Other (see comments) 11/27/2010 joint pain Medications B Complex-C (VITAMIN B + C COMPLEX PO) Take 1 tablet by mouth 1 (one) time each day Active cetirizine (ZyrTEC) 10 MG tablet at bed time Active traMADol (ULTRAM) 50 MG tablet Take 50 mg by mouth 1 Active omeprazole (PriLOSEC) [address] capsule Take 1 capsule by mouth 1 (one) time each day Active albuterol HFA (PROVENTIL HFA;VENTOLIN HFA) 108 [...] mouth 1 (one) time each day Active Magnesium 500 MG capsule Take by mouth Activ e co-enzyme Q-10 30 MG capsule Take 30 mg by mouth 1 (one) time each day Active carvedilol (COREG) 25 MG tablet Take 1 tablet (25 mg total) by mouth in the morning and 1 tablet (25 mg total) in the evening. 180 tablet 3 5 Active torsemide (DEMADEX) 20 MG tablet Take 1 tablet (20 mg total) by mouth in the morning and 1 tablet (20 mg total) in the evening. 180 tablet 3 5 03/15/20 26 Active spironolactone (ALDACTONE) 25 MG tablet Take 1 tablet (25 mg total) by mouth 1 (one) time each day 90 tablet 3 5 04/01/20 26 Active allopurinol (ZYLOPRIM) 300 MG tablet Take 1 tablet (300 mg total) by mouth 1 (one) time each day 90 tablet 3 5 Active acetaminophen (TYLENOL) 500 MG tablet Take 500 mg by mouth in the morning. Active simvastatin (ZOCOR) 20 MG tablet Take 1 tablet (20 mg total) by mouth 1 (one) time each day 90 tablet 3 5 Active simvastatin (ZOCOR) 20 MG tablet TAKE 1 TABLET BY MOUTH ONCE DAILY 90 tablet 3 4 10/03/20 25 Discontinu ed(Reorder (does not appear on [...] Encounters Date Type Department Care Team Description 10/03/2025 Refill [facility] [address] [phone] [facility] 09/15/2025 Orders Only [facility] [address] [address] Star Gore MD Chronic kidney disease stage 4 (HCC); Anemia in chronic kidney disease; Edema, not otherwise specified; Gout, not otherwise specified; Hypercalcemia; Hyperparathyroidism, not otherwise specified (HCC); Hypertension; Hyponatremia; Renovascular hypertension; Type 2 diabetes mellitus without complication (HCC) 09/12/2025 10:40 AM EST Office Visit [facility] [address] [address] Star Gore MD Chronic kidney disease stage 4 (HCC) (Primary Dx); Gout, not otherwise specified; Edema, not otherwise specified; Hypercalcemia; Hypertension; Hyponatremia; Renovascular hypertension; Type 2 diabetes mellitus without complication, with long-term use of oral hypoglycemic drugs (HCC) 09/07/2025 Orders Only [facility] [address] [phone] Star Gore MD from Last 3 Months Immunizations Immunization Administration Dates Next Due Influenza Split High [...] Sign Reading Time Taken Comments Blood Pressure 136/58 09/12/2025 10:47 AM EST Pulse 58 09/12/2025 10:47 AM EST Temperature - - Respiratory Rate - - Oxygen Saturation 98% 09/12/2025 10:47 AM EST Inhaled Oxygen Concentration - - Weight 71.2 kg (157 lb) 09/12/2025 10:47 AM EST Height 162.6 cm (5' 4 ) 07/14/2024 12:03 PM EDT Body Mass Index 26.95 07/14/2024 12:03 PM EDT Plan of Treatment Upcoming Encounters Date Type Department Care Team (Late st Contact Info) Description 03/22/2026 10:20 AM EDT Office Visit [facility] [address] [phone] Star oGre MD [address] [phone] Health Maintenance Due Date Last Done Comments Diabetes: Hemoglobin A1C 05/08/2021 05/13/2019 Diabetes: Ophthalmology Exam 05/08/2021 Diabetes: Pedal Pulse Checked 05/08/2021 Diabetes: Sensory Foot Exam 05/08/2021 Diabetes: Visual Foot Exam 05/08/2021 Influenza Vaccine (#1) 2025 9, 01/20/2018, 08/03/2013 Pneumococcal Vaccine: 50+ Years Completed 08/03/2019, 07/28/2014 Pneumococcal Vaccine: Peds ( 0 to 5 Years) and At-Risk Patients (6 to 49 Years) Discontinued 08/03/2019, 07/28/2014 Hepatitis B Vaccine Aged Out No longe r eligible based on patient's age to complete this topic Procedures Procedure Name Priority Date/Time Associated Diagnosis Comments PROTEIN / CREATININE RATIO, URINE Routine 09/07/2025 2:00 PM EST SPECIMEN STATUS REPORT Routine 10:29 AM EST PTH, INTACT Routine 09/07/2025 10:29 AM EST MAGNESIUM Routine 09/07/2025 10:29 AM EST PHOSPHATE ( PHOSPHORUS) Routine 09/07/2025 10:29 AM EST URIC ACID Routine 09/07/2025 10:29 AM EST VITAMIN D 25 HYDROXY Routine 09/07/2025 10:29 AM EST PROTEIN / CREATININE RATIO, URINE Routine 09/07/2025 10:29 AM EST COMPREHENSIVE METABOLIC PANEL Routine 09/07/2025 10:29 AM EST CBC AND DIFFERENTIAL Routine 09/07/2025 10:29 AM EST BLOOD PANEL (HC) Routine 05/13/2019 12:0 0 AM EDT from Last 3 Months or Most Recently Relevant to Health Maintenance Results * Protein, Total, Random Urine w/Creatinine (Protein/Creat Ratio) (09/07/2025 2:00 PM EST) Creatinine, Ur 84.3 Not Estab. mg/dL [facility] Protein, Ur 11.1 Not Estab. mg/dL [facility] Urine Protein/Creatin ine Ratio 132 0 - 200 mg/g creat [facility] 09/07/2025 2:00 PM EST 09/07/2025 Star Gore MD LAB URINE ORDERABLES Final Re sult Performing Organization Address City/[facility] Co de Phone Number [facility] [address] [place] [address] * SPECIMEN STATUS REPORT (09/07/2025 10:29 AM EST) Pathologist [facility] Specimen Status Comment [facility] Comment: Soindo Whitney CMP14 Default Sonido Whitney CMP14 Default A hand-written panel/profile was received from your office. In accordance with the [facility] Ambiguous Test Code Policy dated May 2003, we have completed your order by using the closest currently or formerly recognized AMA panel. We have assigned Comprehensive Metabolic Panel (14), Test Code #138115 to this request. If this is not the testing you wished to receive on this specimen, please contact the [facility] Client Inquiry/Technical Services Department to clarify the test order. We appreciate your business. 09/07/2025 10:2 9 AM EST 09/07/2025 Star Gore MD LAB BLOOD ORDERABLES Final Re sult Performing Organization Address City/[facility]/ZIP Co de Phone Number [facility] [address] [place] [address] * Vitamin D 25 Hydroxy (09/07/2025 10:29 AM EST) Pathologist [facility] Vitamin D, 25-OH, Total 39.5 30.0 - 100.0 ng/mL [facility] Comment: Vitamin D deficiency has been defined by the [place] of [employer] and an Endocrine Society practice guideline as a level of serum 25-OH vitamin D less than 20 ng/mL (1,2). The Endocrine Society went on to further define vitamin D insufficiency as a level between 21 and 29 ng/mL (2). 1. IOM ([place] of [employer]). 2010. Dietary reference intakes for calcium and D. [place]: The National Academies Press. 2. Waqas MF, Carrol STALLINGS, Cherelle DAN, et al. Evaluation, treatment, and prevention of vitamin D deficiency: an Endocrine Society clinical practice guideline. JCEM. 2010; 96(7):1911-30. 09/07/2025 10:2 9 AM EST 09/07/2025 us Star Gore MD LAB BLOOD ORDERABLES Final Re sult [facility] [address] [place] [address] * (ABNORMAL) CBC and Differential (09/07/2025 10:29 AM EST) WBC 7.6 3.4 - 10.8 x10E3/uL [facility] RBC 3.79 3.77 - 5.28 x10E6/uL [facility] Hemoglobin 10.8(L) 11.1 - 15.9 g/dL [facility] Hematocrit 34.4 34.0 - 46.6 % [facility] MCV 91 79 - 97 fL [facility] MCH 28.5 26.6 - 33.0 pg [facility] MCHC 31.4(L) 31.5 - 35.7 g/dL [facility] RDW 15.8(H) 11.7 - 15.4 % [facility] Platelets 124(L) 150 - 450 x10E3/uL [facility] Neutrophils Relative 67 Not Estab. % [facility] Lymphocytes Relative 21 Not Estab. % [facility] Monocytes 7 Not Estab. % [facility] Eosinophils Relative 4 Not Estab. % [facility] Basophils Relative 1 Not Estab. % [facility] Neutrophils Absolute 5.1 1.4 - 7.0 x10E3/uL [facility] Lymphocytes Absolute 1.6 0.7 - 3.1 x10E3/uL [facility] Monocytes Absolute 0.5 0.1 - 0.9 x10E3/uL [facility] Eosinophils Absolute 0.3 0.0 - 0.4 x10E3/uL [facility] Basophils Absolute 0.0 0.0 - 0.2 x10E3/uL [facility] Immature Granulocytes 0 Not Estab. % [facility] Immature Grans (Absolute) 0.0 0.0 - 0.1 x10E3/uL [facility] 09/07/2025 10:2 9 AM EST 09/07/2025 us Star Gore MD LAB BLOOD ORDERABLES Final Re sult [facility] [address] [place] [address] * Uric Acid (09/07/2025 10:29 AM EST) Uric Acid 4.4 3.1 - 7.9 mg/dL [facility] Comment:Therapeutic target f or gout patients: <6.0 09/07/2025 10:2 9 AM EST 09/07/2025 us Star Gore MD LAB BLOOD ORDERABLES Final Re sult Performing Organization Address [facility] Co de Phone Number [facility] [address] [place] [address] * Phosphorus (09/07/2025 10:29 AM EST) Phosphorus 3.2 3.0 - 4.3 mg/dL [facility] 09/07/2025 10:2 9 AM EST 09/07/2025 us Star Gore MD LAB BLOOD ORDERABLES Final Re sult Performing Organization Address [facility] de Phone Number [facility] [address] [place] [address] * (ABNORMAL) PTH, Intact (09/07/2025 10:29 AM EST) PTH 104(H) 15 - 65 pg/mL [facility] 09/07/2025 10:2 9 AM EST 09/07/2025 us Star Gore MD LAB BLOOD ORDERABLES Final Re sult Performing Organization Address [facility] de Phone Number [facility] [address] [place] [address] * (ABNORMAL) Magnesium (09/07/2025 10:29 AM EST) Magnesium 1.5(L) 1.6 - 2.3 mg/dL [facility] 09/07/2025 10:2 9 AM EST 09/07/2025 us Star Gore MD LAB BLOOD ORDERABLES Final Re sult [facility] [address] [place] [address] * (ABNORMAL) Comprehensive Metabolic Panel (09/07/2025 10:29 AM EST) Glucose 107(H) 70 - 99 mg/dL [facility] BUN 58(H) 8 - 27 mg/dL [facility] Creatinine 1.69(H) 0.57 - 1.00 mg/dL [facility] eGFR CKD-EPI CR 2020 29(L) >59 mL/min/1.7 3 [facility] BUN/Creatinine Ratio 34(H) 12 - 28 [facility] Sodium 143 134 - 144 mmol/L [facility] Potassium 4.0 3.5 - 5.2 mmol/L [facility] Chloride 103 96 - 106 mmol/L [facility] Bicarbonate (CO2) 23 20 - 29 mmol/L [facility] Total Protein 5.9(L) 6.0 - 8.5 g/dL [facility] Albumin 4.3 3.7 - 4.7 g/dL [facility] Globulin 1.6 1.5 - 4.5 g/dL [facility] Total Bilirubin 0.5 0.0 - 1.2 mg/dL [facility] Alkaline Phosphatase 110 48 - 129 IU/L [facility] AST (SGOT) 22 0 - 40 IU/L [facility] ALT (SGPT) 23 0 - 32 IU/L [facility] Calcium 10.7(H) 8.7 - 10.3 mg/dL [facility] Comment:Verified by repeat analysis 09/07/2025 10:2 9 AM EST 09/07/2025 us Star Gore MD LAB BLOOD ORDERABLES Final Re sult [facility] [address] [place] [address] * (ABNORMAL) Blood Panel (05/13/2019 12:00 AM [...] % RTAMA 05/13/2019 us [facility] [id number] LICITED RESULTS Final Result RTAMA from Last 3 Months or Most Recently Relevant to Health Maintenance Insurance Medicare Medicaid [place] [facility] [address] [address] Medicare Medicaid [place] Care Teams Rotogravure Press Operator Relationship Specialty Start Date End Date Madyson Givens MD [address] [place] [address] PCP - General Internal Medicine 11/15/24
--- OUTSIDE RECORDS SUMMARY | 2025-10-21 13:13 | XMS_ITS | Data Portability ---
Author Organization [place] [facility] Huy Dewitt AONE Glennie Address [address] [place] [address] Care Team Providers Care Electrical Assembly Technician Name Role Phone JOSE MIGUEL DELA CRUZ [...] buttock pain. This is not radicular. Her glass blower gave her an injection to the right [...] physical examination, tests/diagnostic imaging, and treatment plan Not available 09/22/2024 14:37:42 Plan of Treatment [...] view 2023 024 [email or web address] 2 [facility], [address], [place], [address], 14:20:37 Medication Orders None recorded. Patient TargetsNo targets recorded. Patient Instructions Encounter Date Encounter Id Patient Instructions Last Modified By Organization Details Last Modified Time 09/22/2024 [id number] X-rays of the sacrum and coccyx were performed on 09/22/2024 which are negative for acute fracture. Question of callus formation at the inferior aspect of the sacrum. [email or web address] Not available 09/22/2024 14:37:33 Reason for Referral [...] Time Trochanteri c bursitis of right hip 2157564106239 00 Active 2023 KLEBER HOYOS PA-C [address], [place], [address], [place] [facility], [facility] 4 14:23:51 Low back pain 777667546 Active 2023 KLEBER HOYOS PA-C [address], [facility] [place], [address], [place] [facility], [facility] 4 14:24:05 Problem Notes None recorded. [...] Updated DateTime 09/22/2024 162.56 cm 26.6 kg/m2 55021.[address] [place] [facility] [place] [facility] 09/22/2024 13:58:47 Social History None recorded. Functional Status Question Answer Note LastModified by Organizat ion Details LastModified Time Do you use any illicit or recreational drugs? No [email or web address] Information not available 09/22/2024 Do you or have you ever used any other forms of tobacco or nicotine? No [email or web address] Information not available 09/22/2024 What is your level of alcohol consumption? None [email or web address] Information not available 09/22/2024 Mental Status None recorded. Family History Relationship Description Onset Age of this Age Resolved Age Notes LastModified by Organization Details LastModified Time Mother History of cancer of unknown primary site [email or web address] Not available 11/22/2023 13:59:28 Father Heart disease [email or web address] Not available 09/04 13:59:39 Father Hypercholest erolemia [email or web address] Not available 09/04 13:59:47 Father Hypertensive disorder [email or web address] Not available 09/04 13:59:56 Medical History Condition Response Gout Y Hypertension Y Gynecological HistoryNo gynecological history recorded. Obstetrics History GPAL:G 0 P 0 0 0 0 Past Encounters Encounter ID Performer Location Encounter Start Date Encounter Closed Date Diagnosis/Indication Diagnosis SNOMED-CT Code Diagnosis ICD10 Code Diagnosis IMO Codes Diagnosis Note [id number] KLEBER HOYOS PA-C [facility] [address] [place] [address] 09/22/2024 13:34:43 09/22/2024 14:20:37 Sacral back pain 96517552 M53.3 [id number] Trochanter ic bursitis of right hip 2231343438 80527 M70.61 [id number] Low back pain 370382869 M54.50 Health Concerns Section Related Observation LastModified by Organization Detai ls LastModified Time None Recorded Concern Status LastModified by Organization Details LastModified Time None Recorded Advance Directives Directive None Recorded Payers Insurance Date Sequence Insurance Name Policy Number Policy Yoo Covered Member ID Yoo Member ID Guarantor Name 09/22/2024 1 [place] B-[place] Carine Moe [id number] Carine Moe 03/10/2025 2 [place] [id number] Carine Moe [id number] Carine Moe 03/09/2025 3 [place] Carine Moe [id number] Carine Moe 03/10/2025 1 [facility] - DUAL ELIGIBLE (MEDICARE REPLACEMENT /ADVANTAGE - PPO) [id number] Carine Moe [id number] Carine Moe OBGyn Episode No OBEpisode recorded.
--- OUTSIDE RECORDS SUMMARY | 2025-10-21 13:13 | XMS_ITS | Encounter Summary ---
Author Organization [facility] Address [address] [place] [address] Care Team Providers Care Beamer Hand Name Role Phone Madyson Givens MD Primary Care Provider [phone] Reason for Visit * Reason Onset Date Comments Constipation 10/19/2025 Diarrhea 10/19/2025 Encounter Details Date Type Department Care Team ([facility] st Contact Info) Description 10/19/2025 Telephone Gastroenterology - [address] [phone] Prashant Britt MD [address] [facility] [address] [place] [address] Social History Tobacco Use Types Packs/Day Years [...] on file documented as of this encounter Progress Notes * Haylie Strickland MA - 10/21/2025 9:[address] Samuel, Could you advise on this since patient needs a new GI provider? The chart with Dr Ravi records should be scanned if needed for review. I can call her back to advise and also get her scheduled with a new provider. Thanks Deya * Tayler Mcmahon - 10/21/2025 9:12 AM EST Patient is calling back for an update [phone] * Fidelia Gaitan - 10/19/2025 11:22 AM EST Patient called and said she has been having issues with diarrhea and constipation. She was not aware that Dr. De La Cruz retired. Please contact and advise. Are you able to pass any stool at all? (if diarrhea, is it formed) No, runny diarrhea Are you having any abdominal pain/cramping? No Any fevers? No Have you taken anything over the counter for this if yes, what? Tried imodium but did not help Are you on any new medications? No How long has this been an issue? 2/3 weeks - says it switches on and off from constipation to diarrhea (Diarrhea only) How many episodes per day? 3/4 times Which provider do you see here? Jono / Lelia new provider picked yet documented in this encounter Plan of Treatment Not on file documented as of this encounter Visit Diagnoses Not on filedocumented in this encounter Care Teams Beamer Hand Relationship Specialty Start Date End Date Madyson Givens MD [address] [facility] [address] [place] [address] PCP - General Internal Medicine 07/12/25 documented as of this encounter
--- OUTSIDE RECORDS SUMMARY | 2025-10-21 13:13 | XMS_ITS | Data Portability ---
Author Organization [place] [facility] Address [address] [place] [address] Care Team Providers Care Cork Pressing Machine Operator Name Role Phone JOSE MIGUEL DELA CRUZ Primary Care Provider Assessment Encounter Date Assessment Date Assessment LastModified by Organization Details LastModified Time 11/10/2024 11/10/2024 Recommendations: Follow up with referring provider. [email or web address] Not available 11/10/2024 13:54:45 11/10/2024 11/10/2024 Cerumen impactions removed. Audiometric testing reviewed. Dry central perforation right side. Asymmetry of speech discrimination score noted likely due to the conductive component and the hearing loss on the right side. Suggest return to her hearing aid provider for adjustments [email or web address] Not available 11/10/2024 14:40:46 09/06/2025 09/06/2025 89-year-old female who wears binaural [...] 2025 and has a follow-up with Dr. Zavala. 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 The patient would like to discuss this more after receiving her audiometric testing in December. [email or web address] Not available 09/06/2025 17:06:26 Plan of Treatment [...] audio gram No observ ation record ed. [email or web address] Not Available 07/2025 08:47:42 11/11/19 audio gram No observ ation record ed. BARCODE Not Available 2024 12:17:01 Result Notes None recorded. Problems Name Problem SNOMED Code Status Onset Date Resolution Date Notes Provider Name and Address Organization Details Recorded Time Bleeding from nose 443306428 Active 2015 [facility]; Note: Date Diagno sed: 016 10:55 AM (R04.0 ) Not Available [facility] 4 02:26:36 Polyp of nasal cavity 029699479 Active 2024 JOSHUA DE LEON MD [address] [facility] [address], [place], [address] , [place] 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 2024 JOSHUA DE LEON MD [address] [facility] [address], [place], [address] , [place] - [facility] 5 12:56:07 Chronic sinusitis 65559021 Active 2024 JOSHUA DE LEON MD [address], [place], [place], [address] , [place] - [facility] 5 12:56:07 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 0687033276054 101 Active 2024 JOSHUA DE LEON MD [address], [place], [address] , [place] - [facility] 5 13:19:50 Impacted cerumen in right ear 7167652923027 103 Active 2024 LIZZ AKERS [address], [place], [address] , [place] - [facility] 5 17:06:04 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 28382749 Active 2024 SANTOS DOE, AUD [address], [place], [address] , [place] - [facility] 5 13:54:26 Sensorineu ral hearing loss 20442204 Active 2024 SANTOS DOE, AUD [address], [place], [address] , [place] - [facility] 5 13:54:30 Sensorineu ral hearing loss in left ear 7811301072343 9 Active 2024 JOSHUA DE LEON MD [address], [place], [address] , [place] - [facility] 5 14:40:10 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 Procedures Surgical History Date Name Laterality Status Provider Name and Address Organization Details Recorded Time 5 Cerumen removal without microscope right completed LIZZ AKERS [address] [facility],[place] [address], [place], [address], [facility] 09/06/2025 17:02:00 5 Comp Audio with Tymps - 59883 & 87408 completed HERMINIO COTTRELL [address] [facility] [address], [place], [address], [facility] 11/10/2024 13:44:01 Imaging Results None recorded. Procedure Notes None recorded. Medical Equipment None Reported. Allergies Allergen ID Allergen Name Allergen Category Reaction Reaction Severity Criticality Documentation Date Start Date Code Code System Note Provider Name and Address Organization Details Recorded Time 07648 penicilli n V potassium medicatio n other Not available Not available 03/16/202425609 5 RxNorm React ion: unkno wn, unspe cifie d;; Not Available [facility] 4 00:52:42 21335 Substance with sulfonami de structure and antibacte rial mechanism of action (substanc e) medicatio n other Not available Not available 03/16/2024 89363 8003 SNOMED React ion: unkno wn, unspe cifie d;; Not Available [facility] 4 00:52:47 Medications Name Sig Start Date [...] Updated DateTime 11/10/2024 162.56 cm 25.7 kg/m2 23243.86 g Sruinder Davidson [place] - [facility] 11/10/2024 13:12:38 Date Recorded Body height Body mass index (BMI) Body weight Provider Name and Address Organization Details Last Updated DateTime 09/06/2025 162.56 cm 26.6 kg/m2 17364.82 g Micki Briceno [place] [facility] 09/06/2025 15:06:16 Social History None recorded. Functional [...] ICD10 Code Diagnosis IMO Codes Diagnosis Note [id number] JOSHUA DE LEON MD [facility] [address] [address] 11/10/2024 12:46:39 11/10/2024 14:14:20 Sensorineural hearing loss in left ear 2949271438 9109 H90.A22 Mixed cond uctive and sensorineural hearing loss of right ear 0485307924 9105 H90.A31 Central pe rforation of right tympanic membrane 2332781881 329092 H72.01 Impacted c erumen in right ear 0981327029 852068 H61.21 [id number] HERMINIO COTTRELL [facility] [address] [address] 11/10/2024 13:40:53 11/10/2024 15:25:26 Mixed conductive AND sensorineural hearing loss 43884326 H90.A31 Audiologic al evaluation results:Ri ght ear:Severe to profound mixed hearing loss with poor word recognitio n.Left ear:Mild to severe sensorineu ral hearing loss with fair word recognitio n.Tympanom etry:Right Ear:Type B with large volumeLeft Ear:Type Ad Sensorineu ral hearing loss 67096566 H90.A22 [id number] LIZZ AKERS [facility] [address] [address] 09/06/2025 14:44:09 09/06/2025 15:33:44 Impacted cerumen in right ear 6255943748 734110 H61.21 7257508 Central pe rforation of right tympanic membrane 3568593000 071530 H72.01 Mixed cond uctive and sensorineural hearing loss of right ear 9714952205 9105 H90.A31 Sensorineu ral hearing loss in left ear 7828606347 9109 H90.A22 Health Concerns Section Related Observation LastModified by Organization Detai ls LastModified Time None Recorded Concern Status LastModified by Organization Details LastModified Time None Recorded Advance Directives Directive None Recorded Payers Insurance Date Sequence Insurance Name Policy Number Policy Yoo Covered Member ID Yoo Member ID Guarantor Name 09/06/2025 [place] [employer] Carine Moe [id number] Carine Moe 09/08/2025 1 [place] Carine Moe [id number] Carine Moe 09/08/2025 2 [place]) [id number] Carine Moe [id number] Carine Moe 09/06/2025 3 [place] Carine Moe [id number] Carine Moe Notes Date Note Type Note Provider Name and Address Organization Details Recorded Time 11/10/2024 text/html Hearing aids from [employer]. PCP office said no wax but [employer] said wax in ears. Wearing hearing aids for 10 years. 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 No drainage JOSHUA ZAVALA MD [address], [address], [facility] - [facility] 11/10/2024 14:40:59 11/10/2024 text/html Audiological Evaluation HPIReported by PatientHearing LossFor hearing loss perceived, patient reportshearing loss in both ears (right ear worse).Use of amplification or other hearing devicesFor use of amplification or other hearing devices, patient reportshearing aid use in both ears. HERMINIO COTTRELL [address] [facility],[address], [address], [facility] - [facility] 11/10/2024 13:55:23 09/06/2025 text/html ROS as noted in the [...] pain. She gets her hearing aids through [facility], however she finds the right hearing aid to be ineffective since she has significant hearing loss in that ear. She denies ear drainage or recent ear infections. She uses Q-tips to clean both ears. PERCY OLVERA MD [address] [place] [address], [place], [address], [place] - [facility] 09/07/2025 10:56:45 OBGyn Episode No OBEpisode recorded.
--- OUTSIDE RECORDS SUMMARY | 2025-10-21 13:13 | XMS_ITS | Encounter Summary ---
Author Organization [facility] Address [address] [place] [address] Phone Care Team Providers Care Edge Inker Name Role Phone Madyson Givens MD Primary Care Provider [phone] Reason for Visit * Reason Comments Med Refill Encounter Details Date Type Department Care Team (Late Contact Info) Description 06/04/2022 Refill [facility] [address] [place] [address] Star Gore MD [address] [place] [address] Social History Tobacco Use Types Packs/Day [...] Visit [facility] [address] [address] Star Gore MD [address] [place] [address] documented as of this encounter Visit Diagnoses Not on filedocumented in this encounter Care Teams Edge Inker Relationship Specialty Start Date End Date Madyson Givens MD [address] PCP - General Internal Medicine 11/15/24 documented as of this encounter
--- OUTSIDE RECORDS SUMMARY | 2025-10-21 13:14 | XMS_ITS | Patient Health Record ---
Author Organization [facility] Address [address] [place] [address] Care Team Providers Care Hand Lacer Name Role Phone JOSE MIGUEL DELA CRUZ MD Primary Care Provider STEVE Barrera Unavailable [phone] Allergies No Known Allergies Reason For Referral No Information Medications Medication SIG (Take, Route, Frequency, Duration) Notes Start Date End Date Status Singulair 10 MG Tablet 1 tab(s) orally o nce a day as needed Active Simvastatin 20 MG Tablet 1 tab(s) orally once a day (at bedtime) Active Allopurinol 300 MG Tablet 1 tab(s) orall y once a day Active ALLER-JEANETTE 10 MG TABLET 1 TAB(S) ORALLY O NCE A DAY prn Active Vitamin C 250 MG Tablet 2 chewable once daily Active traMADol HCl 50 MG Tablet 1 tab(s) orall y once a day prn 04/23/2021 Active Tylenol Extra Strength 500 MG Tablet 2 tab(s) orally as needed Ac tive MiraLax - POWDER FOR RECONSTITUTION DIRECTED ORALLY ONCE A DAY PRN 01/10/2020 Active Carvedilol 25 MG Tablet 1 tab orally twice a day Active Spironolactone 25 MG Tablet 1 tabs orally daily Active Probiotic 250 MG Capsule 1 cap(s) Orally once a day Active amLODIPine Besylate 2.5 MG Tablet 1 tab(s) orally once a day Active Magnesium 400 MG Tablet 1 tablet with a meal Orally once a day Active Trimethoprim 100 MG Tablet 1 tablet Oral ly Once a day; Duration: 10 day(s) Active Omeprazole 20 MG Capsule Delayed Release 1 cap(s) orally once a day; Duration: 90 Active Torsemide 20 MG Tablet 1 tablet Orally o nce a day Active Fluticasone Propionate 50 MCG/ACT Suspension 1 spray(s) intranasally once a day prn Active Immunizations Vaccine Route Administration Date Status Comme nts FLU- FLUVIRIN, PRE-FILLED SYRINGE 0.5 ml Unknown 07/29/2013 Administered Influenza, Fluvirin multi dose Unknown 08/03/2015 Administered Influenza, Fluzone HD 65+ IM Intramuscular 08/05/2019 Admi nistered Pneumococcal, PPV 23 Unknown 08/03/2015 Administered Pneumococcal,Prevnar 13, PEDS STATE SUPPLIED Unknown 08/15/2014 Administered SHINGRIX HZV VACCINE Unknown 03/15/2019 Administered Social History Tobacco Use: Social History Observation Description Date Details (start date - stop date) Former Smoker NA - NA Social History Drug/Alcohol: Social Info Question Answer Notes Alcohol Screen Did you have a drink containing alcohol in the past year? No Points 0 Interpretation Negative Tobacco Use: Social Info Question Answer Notes Smoking Are you a: former smoker How long has it been since you last smoked? > 10 years Additional Details Category Social Info Options Details General Occupation: Retired asbestos exposure: no Past year's travels: [place] alcohol use: yes Rarely drug use: no Hobbies/Exercise habits: none Coffee/Tea/Soda: yes Coffee or tea 1 -2 daily, No soda Marital Status January 20 experience no Living with alone Pets none smokers in household no Problems Problem Type SNOMED Code ICD Code Onset Dates Problem Status W/U Status Risk Notes Problem Acquired hypothyroidism (670397754) Acquired hypothyroidism NOS (244.9) Active confirmed Problem Pure hypercholesterolemia (388433552) Cholesterolemia (272.0) Active confirmed Problem Dyspnea (967705408) Dyspnea (786.09) Active con firmed Problem Hyperglycemia (85358520) Hyperglycemia (790.6) Active confirmed Problem Chronic sinusitis (20367741) Post Nasal Drip (473.9) Active confirmed Problem Obesity (220695823) OBESITY NOS (278.00) Active confirmed Problem Essential hypertension (35951166) Essential hypertension (401.1) Active confirmed Problem Essential hypertension (56309182) Essential hypertension (I10) Active confirmed Problem Vitamin D deficiency (26364101) Vitamin D deficiency (E55.9) Active confirmed Problem Hyperglycemia (43451259) Hyperglycemia (R73.9) Active confirmed Problem Essential hypertension (42388988) Essential (primary) hypertension (I10) Active confirmed Problem Hypothyroidism (50046238) Hypothyroidism, unspecified (E03.9) Active confirmed Problem Pure hypercholesterolemia (761156849) Pure hypercholesterolemia (E78.0) Active confirmed Problem Hypertension (81768088) HTN (hypertension) (I10) Active confirmed Problem Type II diabetes mellitus without complication (427038632) Diabetes (E11.9) Active confirmed Problem Dysphagia (14113308) Dysphagia (R13.10) Active confirmed Problem Pulmonary nodule (230018117) Pulmonary nodule (R91.1) Active confirmed Problem Hyperlipidemia (18352258) Hyperlipidemia (E78.5) Active confirmed Problem Gout (05649029) Gout (M10.9) Active confirmed Problem Arthritis (4840284) Arthritis (M19.90) Active c onfirmed Problem Primary hyperparathyroidism (54412412) Primary hyperparathyroidism (E21.0) Active confirmed Problem Peripheral venous insufficiency (13877985) Venous insufficiency (I87.2) Active confirmed Problem Urinary incontinence (208671357) Urinary incontinence (R32) Active confirmed Problem Neuropathy (009006322) Neuropathy (G62.9) Active confirmed Problem Hypercalcemia (49633582) Hypercalcemia (E83.52) Active confirmed Problem Chronic pain (56932605) Other chronic pain (G89.29) Active confirmed Problem Bullous pemphigoid (20100177) Bullous pemphigoid (L12.0) Active confirmed Problem Atopic dermatitis (04046434) Other atopic dermatitis (L20.89) Active confirmed Problem Sciatica (31933076) Lumbago with sciatica, right side (M54.41) Active confirmed Problem Urge incontinence of urine (03769046) Urge incontinence (N39.41) Active confirmed Problem Mixed incontinence (374019992) Mixed incontinence (N39.46) Active confirmed Problem Gastroesophageal reflux disease without esophagitis (902338033) Gastroesophageal reflux disease without esophagitis (K21.9) Active confirmed Problem Osteoarthritis of knee (543425320) Primary osteoarthritis of both knees (M17.0) Active confirmed Problem Multiple pulmonary nodules (769635861) Pulmonary nodules (R91.8) Active confirmed Problem Osteoarthritis of knee (815759573) Primary osteoarthritis of right knee (M17.11) Active confirmed Problem Obese class I (193537351666096) BMI 33.0-33.9,adult (Z68.33) Active confirmed Problem Constipation (83802407) Constipation, unspecified constipation type (K59.00) Active confirmed Problem Prediabetes (844031798) Prediabetes (R73.09) Active confirmed Problem Osteoarthritis of knee (557711329) Primary osteoarthritis of left knee (M17.12) Active confirmed Problem Urge incontinence of urine (39586091) Urge incontinence of urine (N39.41) Active confirmed Problem Body mass index 30.0 0 to 34.99 (587268180183411) BMI 34.0-34.9,adult (Z68.34) Active confirmed Problem Hyperparathyroidism (66514899) Hyperparathyroidism (E21.3) Active confirmed Problem Localized, primary osteoarthritis of the pelvic region and thigh (989976790) Primary osteoarthritis of right hip (M16.11) Active confirmed Problem Prediabetes (074494900) Pre-diabetes (R73.09) Active confirmed Problem Bronchiolitis (0939049) Bronchiolitis (J21.9) Active confirmed Problem Irregular heart beat (634454278) Irregular heart beat (I49.9) Active confirmed Problem Degeneration of lumbar intervertebral disc (69308916) 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) Active confirmed Problem Arthritis of knee (008308529) Arthritis of knee (M17.10) Active confirmed Problem Osteopenia of ne ck of right femur (M85.851) Active confirmed Problem Arthropathy of lumba r facet joint (disorder) (396463050) Facet arthropathy, lumbar (M47.816) Active confirmed Problem Primary osteoarthritis (635173063) Primary osteoarthritis involving multiple joints (M89.49) Active confirmed Problem Acute right-side d low back pain without sciatica (M54.50) Active confirmed Plan Of Treatment Future Test Test Name Order Date XR : TOE(S) min 2 view LEFT -SMA 016 CALCIUM 06/07/2019 ALBUMIN 06/07/2019 BASIC METABOLIC PANEL 06/07/2019 25 OH Vitamin D 06/07/2019 24 hour ambulatory blood pressure monito r 07/15/2019 PHOSPHORUS 05/10/2020 COMP. METABOLIC 05/10/2020 25 OH Vitamin D 05/10/2020 PTH, Intact(without Calcium) 05/10/2020 PHOSPHORUS 04/26/2021 COMP. METABOLIC 04/26/2021 Insurance Providers Payer Name Payer Address Payer Phone Subscriber Number Group Number Insured Name Patient Relationship to Insured Coverage Start Date Coverage End Date MEDICARE [employer] [address] [place] [address] [id number] HANS FLORES Self - patient is the insured 1 [employer] [address] [place] [address] [phone] [id number] SANDRA HANS Self - patient is the insured Medications Administered Medication Instructions Date of Administration Dosage Notes Triamcinolone Acetonide, mul ti-dose vial, 12/03/2022 60 mg Triamcinolone Acetonide, mul ti-dose vial, 01/28/2023 60 mg Medical (General) History Medical History History ICD Code hypertension - Dr. Rodrigues hyperlipidemia renal insufficiency - Dr. Rodrigues hyperglycemia venous insufficiency urinary incontinence - Dr. Zavala ? bullous pemphigoid Hypercalcemia w/ high PTH in 05/19. Hypercalcemia on and off since 2005. Vit D deficiency as of 05/18-resolved. On HCTZ for yrs-DC 02/18. OFF HCT x 2 weeks when 24 hr U Ca 60 mg. Se Ca 10, albs 4.3, PTH up 113, creat 2.0, 25 OH D nl, phos cl nl 10.96, TRP low 64.9. 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 Tamez Surgical History Surgery Date(Month/Year) RT knee meniscus- Dr. Herron 10/2016 hysterectomy Hospitalization History Reason Date(Month/Year)
== END 2025-10-21 11:43 | disposition home or self-care (01) ==
LOC: HO.HPS 11:14
PROVIDERS: PCP Internal Medicine; Visit Provider Hospitalist
DX: M54.50 Low back pain, unspecified (principal); R19.7 Diarrhea, unspecified; J45.40 Moderate persistent asthma, uncomplicated; J47.9 Bronchiectasis, uncomplicated; R91.8 Other nonspecific abnormal finding of lung field; R05.8 Other specified cough; J31.0 Chronic rhinitis
CPT/HCPCS: 99214

== ENCOUNTER → 2025-10-21 11:55 | Outpatient (BNV) | payer MEDICARE, SELFPAY | PROVIDERS: PCP Internal Medicine; Visit Provider Radiology Diagnostic Radiology | DX: J84.9 Interstitial pulmonary disease, unspecified (principal) | CPT/HCPCS: 71101; 74019 ==